=== PATIENT | female | born 1990 | race African-American/Black ===

== ENCOUNTER 2016-03-14 17:24 | Inpatient (IN) | payer SELFPAY ==
[~2016-03-14] VITALS: Ht 162.6 cm; Wt 68.0 kg
[~2016-03-14 17:24] MED LIST: CHLO.12%30 SSP; PENI500T PO
[2016-03-14 17:25] VITALS: BP 128/64; PULSE 122; RESP 20; TEMP 98.8; O2SAT 98
[2016-03-14] MEDS ORDERED: SODIUM CHLOR 0.9% 1000 ML INJ 1,000 ML IV SCH (17:56)
[2016-03-14] MEDS ORDERED: DICYCLOMINE HCL 10 MG CAP PO ONE (18:00)
[2016-03-14] MEDS ORDERED: ALUMINUM/MAGNESIUM/SIMETH 30 ML CUP PO ONE (18:00)
[2016-03-14] MEDS ORDERED: SODIUM CHLORIDE 0.9% FLUSH 5 ML FLUSH IVF PRN (18:00)
[2016-03-14] MEDS ORDERED: ONDANSETRON HCL 4 MG/2 ML VIAL IVP ONE (18:00)
[2016-03-14] MEDS ORDERED: FAMOTIDINE 20 MG/2 ML VIAL IV PUSH ONE (18:00)
[2016-03-14] MEDS ORDERED: LIDOCAINE VISCOUS 2% SOLN 15 ML UDC PO ONE (18:00)
[2016-03-14 18:38] LABS: AUTOMATED NEUTROPHIL # 16.1 TH/MM3 (1.8-7.7); BASOPHIL % 0.2 % (0.0-2.0); EOSINOPHIL % 0.1 % (0.0-4.0); HEMATOCRIT 41.3 % (35.0-46.0); HEMO FLAGS DIFF FINAL; LYMPH % 6.6 % (9.0-44.0); LYMPHOCYTE # 1.2 TH/MM3 (1.0-4.8); MEAN CELL VOLUME 81.2 FL (80.0-100.0); MEAN CORPUSCULAR HEMOGLOBIN 26.4 PG (27.0-34.0); MEAN CORPUSCULAR HGB CONC 32.5 % (32.0-36.0); MONO % 3.5 % (0.0-8.0); NEUT % 89.6 % (16.0-70.0); PLATELET COUNT 267 TH/MM3 (150-450); RED BLOOD COUNT 5.08 MIL/MM3 (4.00-5.30); RED CELL DISTRIBUTION WIDTH 14.2 % (11.6-17.2)
[2016-03-14 18:45] LABS: BACTERIA, URINE RARE /hpf; BLOOD, URINE NEG (NEG); COMMENT (UR) CULTURE INDICATED; CULTURE IF INDICATED CULTURE INDICATED; GLUCOSE,URINE NEG (NEG); KETONE, URINE 150 mg/dL (NEG); MUCUS URINE MOD /lpf (OCC); NITRITE,URINE NEG (NEG); PH, URINE 5.5 (5.0-8.5); SQUAMOUS EPITHELIAL CELL URINE 18 /hpf (0-5); URINE COLOR YELLOW (YELLW/STRAW)
--- NOTE | 2016-03-14 18:46 | RADRPT ---
EXAM DATE/TIME: 03/14/2016 18:36 [facility] COMPARISON: No previous studies available for comparison. INDICATIONS : Cough MEDICAL HISTORY : None. SURGICAL HISTORY : None. ENCOUNTER: Initial ACUITY: 1 day PAIN SCORE: 10/10 LOCATION: Bilateral chest FINDINGS: A single view of the chest demonstrates the lungs to be symmetrically aerated without evidence of mas s, infiltrate or effusion. The cardiomediastinal contours are unremarkable. Osseous structures are intact. CONCLUSION: Normal examination. Lb Stoll Jr., MD on March 14, 2016 at 18:45 Board Certified Radiologist. This report was verified electronically.
[2016-03-14 18:55] LABS: APTT (PATIENT) 28.5 SEC (24.3-30.1); INTERNATIONAL NORMALIZED RATIO 1.1 RATIO
[2016-03-14 19:00] LABS: ANION GAP 12 MEQ/L (5-15); AST (GOT) 11 U/L (15-37); BICARBONATE 22.5 MEQ/L (21.0-32.0); BLOOD UREA NITROGEN 11 MG/DL (7-18); CHLORIDE 101 MEQ/L (98-107); GLOMERULAR FILTRATION RATE 82 ML/MIN (>89); POTASSIUM 3.5 MEQ/L (3.5-5.1); SODIUM (NA) 135 MEQ/L (136-145)
[2016-03-14 19:04] LABS: ALKALINE PHOSPHATASE 67 U/L (45-117); ALT (GPT) 15 U/L (10-53); TOTAL BILIRUBIN ADULT 0.6 MG/DL (0.2-1.0)
--- NOTE | 2016-03-14 19:10 | PD ---
HPI Chief Complaint: Flank/Kidney Pain Time Seen by Provider: 17:44 Travel History International Travel<30 days: No Contact w/Intl Traveler<30days: No Traveled to known affect area: No History of Present Illness HPI Patient is a 25-year-old female who presents to emergency with complaints of bilateral flank pain for the past 2 days. Reports that she came home from work one day and felt sick. Reports that for the past 2 days, she has been nauseous and has been vomiting. Patient reports that she has not been able to keep anything down. Reports that she has been feeling dehydrated. Reports that she has been having fevers and chills. Denies constipation or diarrhea. Patient denies any sick contacts. No recent travels. PFSH Past Medical History Medical History: Denies Significant Hx Diminished Hearing: No Influenza Vaccination: No ?: Not LMP: 02/13/16 : 1 Para: 0 Miscarriage: 0 : 0 Past Surgical History Surgical History: No Previous Surgery Social History Alcohol Use: No Tobacco Use: No (quit) Substance Use: No Allergies-Medications (Allergen,Severity, Reaction): Coded Allergies: Pineapple (Verified Allergy, Severe, 03/14/16) Reported Meds & Prescriptions Reported Meds & Active Scripts Active No Active Prescriptions or Reported Medications Review of Systems General / Constitutional: Positive: Fever, Chills Eyes: No: Visual changes HENT: No: Headaches Cardiovascular: No: Chest Pain or Discomfort Respiratory: No: Shortness of Breath Gastrointestinal: Positive: Nausea, Vomiting, Abdominal Pain Genitourinary: No: Dysuria Musculoskeletal: No: Pain Skin: No Rash Neurologic: No: Weakness Psychiatric: No: Depression Endocrine: No: Polydipsia Hematologic/Lymphatic: No: Easy Bruising Physical Exam Narrative GENERAL: Patient with mild distress SKIN: Warm and dry. HEAD: Atraumatic. Normocephalic. EYES: Pupils equal and round. No scleral icterus. No injection or drainage. ENT: No nasal bleeding or discharge. Mucous membranes pink and moist. NECK: Trachea midline. No JVD. CARDIOVASCULAR: Patient tachycardic. No murmur appreciated. RESPIRATORY: No accessory muscle use. Clear to auscultation. Breath sounds equal bilaterally. GASTROINTESTINAL: Abdomen soft, non-tender, nondistended. Hepatic and splenic margins not palpable. MUSCULOSKELETAL: No obvious deformities. No clubbing. No cyanosis. No edema. Patient with bilateral flank pain NEUROLOGICAL: Awake and alert. No obvious cranial nerve deficits. Motor grossly within normal limits. Normal speech. PSYCHIATRIC: Appropriate mood and affect; insight and judgment normal. Data Data Last Documented VS Vital Signs Date Time Temp Pulse Resp B/P Pulse Ox O2 Delivery O2 Flow Rate FiO2 03/14/16 19:15 116 18 89/53 96 03/14/16 17:25 98.8 Orders Complete Blood Count With Diff (03/14/16 17:56) Comprehensive Metabolic Panel (03/14/16 17:56) Lipase (03/14/16 17:56) Prothrombin Time / Inr (Pt) (03/14/16 17:56) Act Partial Throm Time (Ptt) (03/14/16 17:56) Urinalysis - C+S If Indicated (03/14/16 17:56) Ct Abd/Pel W/O Iv Contrast (03/14/16 17:56) Iv Access Insert/Monitor (03/14/16 17:56) Ecg Monitoring (03/14/16 17:56) Ondansetron Inj (Zofran Inj) (03/14/16 18:00) Sodium Chlor 0.9% 1000 Ml Inj (Ns 1000 M (03/14/16 17:56) Sodium Chloride 0.9% Flush (Ns Flush) (03/14/16 18:00) Chest, Single Ap (03/14/16 17:56) Famotidine Inj (Pepcid Inj) (03/14/16 18:00) Dicyclomine (Bentyl) (03/14/16 18:00) Al-Mag Hy-Si 40-40-4 Mg/Ml Liq (Mag-Al P (03/14/16 18:00) Lidocaine 2% Viscous (Xylocaine 2% Visco (03/14/16 18:00) Ed Urine Pregnancytest Poc (03/14/16 17:56) Influenzae A/B Antigen (03/14/16 17:56) Urine Culture (03/14/16 18:10) Sodium Chlor 0.9% 1000 Ml Inj (Ns 1000 M (03/14/16 19:30) Ceftriaxone Inj (Rocephin Inj) (03/14/16 19:30) Labs Laboratory Tests Test 03/14/16 18:10 White Blood Count 18.0 TH/MM3 Red Blood Count 5.08 MIL/MM3 Hemoglobin 13.4 GM/DL Hematocrit 41.3 % Mean Corpuscular Volume 81.2 FL Mean Corpuscular Hemoglobin 26.4 PG Mean Corpuscular Hemoglobin 32.5 % Concent Red Cell Distribution Width 14.2 % Platelet Count 267 TH/MM3 Mean Platelet Volume 9.2 FL Neutrophils (%) (Auto) 89.6 % Lymphocytes (%) (Auto) 6.6 % Monocytes (%) (Auto) 3.5 % Eosinophils (%) (Auto) 0.1 % Basophils (%) (Auto) 0.2 % Neutrophils # (Auto) 16.1 TH/MM3 Lymphocytes # (Auto) 1.2 TH/MM3 Monocytes # (Auto) 0.6 TH/MM3 Eosinophils # (Auto) 0.0 TH/MM3 Basophils # (Auto) 0.0 TH/MM3 CBC Comment DIFF FINAL Differential Comment Prothrombin Time 12.0 SEC Prothromb Time International 1.1 RATIO Ratio Activated Partial 28.5 SEC Thromboplast Time Urine Color YELLOW Urine Turbidity HAZY Urine pH 5.5 Urine Specific [place] 1.033 Urine Protein 30 mg/dL Urine Glucose (UA) NEG mg/dL Urine Ketones 150 mg/dL Urine Occult Blood NEG Urine Nitrite NEG Urine Bilirubin NEG Urine Urobilinogen 2.0 MG/DL Urine Leukocyte Esterase LARGE Urine RBC 6 /hpf Urine WBC 19 /hpf Urine Squamous Epithelial 18 /hpf Cells Urine Bacteria RARE /hpf Urine Mucus MOD /lpf Microscopic Urinalysis Comment CULTURE INDICATED Sodium Level 135 MEQ/L Potassium Level 3.5 MEQ/L Chloride Level 101 MEQ/L Carbon Dioxide Level 22.5 MEQ/L Anion Gap 12 MEQ/L Blood Urea Nitrogen 11 MG/DL Creatinine 1.00 MG/DL Estimat Glomerular Filtration 82 ML/MIN Rate Random Glucose 99 MG/DL Calcium Level 9.1 MG/DL Total Bilirubin 0.6 MG/DL Aspartate Amino Transf 11 U/L (AST/SGOT) Alanine Aminotransferase 15 U/L (ALT/SGPT) Alkaline Phosphatase 67 U/L Total Protein 9.1 GM/DL Albumin 4.0 GM/DL Lipase 68 U/L MDM Medical Decision Making Medical Screen Exam Complete: Yes Emergency Medical Condition: Yes Interpretation(s) Vital Signs Date Time Temp Pulse Resp B/P Pulse Ox O2 Delivery O2 Flow Rate FiO2 03/14/16 19:15 116 18 89/53 96 12/31/16 17:25 98.8 122 20 128/64 98 Laboratory Tests Test 03/14/16 18:10 White Blood Count 18.0 TH/MM3 (4.0-11.0) Red Blood Count 5.08 MIL/MM3 (4.00-5.30) Hemoglobin 13.4 GM/DL (11.6-15.3) Hematocrit 41.3 % (35.0-46.0) Mean Corpuscular Volume 81.2 FL (80.0-100.0) Mean Corpuscular Hemoglobin 26.4 PG (27.0-34.0) Mean Corpuscular Hemoglobin 32.5 % Concent (32.0-36.0) Red Cell Distribution Width 14.2 % (11.6-17.2) Platelet Count 267 TH/MM3 (150-450) Mean Platelet Volume 9.2 FL (7.0-11.0) Neutrophils (%) (Auto) 89.6 % (16.0-70.0) Lymphocytes (%) (Auto) 6.6 % (9.0-44.0) Monocytes (%) (Auto) 3.5 % (0.0-8.0) Eosinophils (%) (Auto) 0.1 % (0.0-4.0) Basophils (%) (Auto) 0.2 % (0.0-2.0) Neutrophils # (Auto) 16.1 TH/MM3 (1.8-7.7) Lymphocytes # (Auto) 1.2 TH/MM3 (1.0-4.8) Monocytes # (Auto) 0.6 TH/MM3 (0-0.9) Eosinophils # (Auto) 0.0 TH/MM3 (0-0.4) Basophils # (Auto) 0.0 TH/MM3 (0-0.2) CBC Comment DIFF FINAL Differential Comment Prothrombin Time 12.0 SEC (9.8-11.6) Prothromb Time International 1.1 RATIO Ratio Activated Partial 28.5 SEC Thromboplast Time (24.3-30.1) Urine Color YELLOW (YELLW/STRAW) Urine Turbidity HAZY (CLEAR) Urine pH 5.5 (5.0-8.5) Urine Specific [place] 1.033 (1.002-1.035) Urine Protein 30 mg/dL (NEG-TRACE) Urine Glucose (UA) NEG mg/dL (NEG) Urine Ketones 150 mg/dL (NEG) Urine Occult Blood NEG (NEG) Urine Nitrite NEG (NEG) Urine Bilirubin NEG (NEG) Urine Urobilinogen 2.0 MG/DL (LESS THAN 2.0) Urine Leukocyte Esterase LARGE (NEG) Urine RBC 6 /hpf (0-3) Urine WBC 19 /hpf (0-5) Urine Squamous Epithelial 18 /hpf (0-5) Cells Urine Bacteria RARE /hpf (NONE) Urine Mucus MOD /lpf (OCC) Microscopic Urinalysis Comment CULTURE INDICATED Sodium Level 135 MEQ/L (136-145) Potassium Level 3.5 MEQ/L (3.5-5.1) Chloride Level 101 MEQ/L (98-107) Carbon Dioxide Level 22.5 MEQ/L (21.0-32.0) Anion Gap 12 MEQ/L (5-15) Blood Urea Nitrogen 11 MG/DL (7-18) Creatinine 1.00 MG/DL (0.50-1.00) Estimat Glomerular Filtration 82 ML/MIN (>89) Rate Random Glucose 99 MG/DL (74-106) Calcium Level 9.1 MG/DL (8.5-10.1) Total Bilirubin 0.6 MG/DL (0.2-1.0) Aspartate Amino Transf 11 U/L (15-37) (AST/SGOT) Alanine Aminotransferase 15 U/L (10-53) (ALT/SGPT) Alkaline Phosphatase 67 U/L (45-117) Total Protein 9.1 GM/DL (6.4-8.2) Albumin 4.0 GM/DL (3.4-5.0) Lipase 68 U/L (73-393) Last Impressions Chest X-Ray 03/14/161755 Signed Impressions: Service Date/Time: Monday, March 14, 2016 18:36 - CONCLUSION: Normal examination. Lb Stoll Jr., MD Abdomen/Pelvis CT 03/14/161755 Signed Impressions: Service Date/Time: Monday, March 14, 2016 19:00 - CONCLUSION: No renal or definite ureteral calculus on either side. No evidence of obstructive uropathy. Harris Spann MD Differential Diagnosis Pyelonephritis, nephrolithiasis, UTI, cholecystitis, appendicitis, gastroenteritis Narrative Course Patient is a 25-year-old female who presents to emergency room with complaints of 2 days of b/l flank pain with intractable nausea and vomiting with fevers and chills. IV line was established, CBC, BMP, UA, CT ordered for further evaluation of symptoms. CBC CBC 18,000 shift Hemoglobin 13.4 Hematocrit 41.3 Platelets 267 BMP Sodium 135 Chloride 101 Potassium 3.5 BUN 11 Creatinine 1.0 UA Large leuk esterase, 19 wbc, rare bacteria, pos ketones Patient with sepsis: Patient tachycardic with wbc 18,000 pt now hypotensive with bp 89/53 Patient will require admission case reviewed with dr more with fp accepts pt to service Sepsis Criteria SIRS Criteria (2 or more): Heart rate over 90, WBC > 71474, < 4000 or > 10% bands Sepsis Criteria (SIRS+source): Infect source susp/known Multiple Organ Dysfunction Syn: Evidence -2 organs failing Criteria Outcome: Meets SIRS criteria, Meets sepsis criteria, Meets severe sepsis criteria Diagnosis Primary Impression: Sepsis Qualified Code: A41.9 - Sepsis, due to unspecified organism Additional Impression: Pyelonephritis Admitting Information Admitting Physician Requests: Admit Scripts No Active Prescriptions or Reported Meds Janneth Miranda DO Mar 14, 2016 19:10
[2016-03-14 19:15] VITALS: BP 89/53; PULSE 116; RESP 18; O2SAT 96
--- NOTE | 2016-03-14 19:18 | RADRPT ---
EXAM DATE/TIME: 03/14/2016 19:00 [facility] COMPARISON: CT ABDOMEN & PELVIS W CONTRAST, April 29, 2015, 13:02. INDICATIONS : Evaluate for calculi. ORAL CONTRAST: No oral contrast ingested. RADIATION DOSE: 5.22 CTDIvol (mGy) MEDICAL HISTORY : None SURGICAL HISTORY : None. ENCOUNTER: Initial ACUITY: 1 day PAIN SCALE: 5/10 LOCATION: Bilateral flank TECHNIQUE: Volumetric scanning of the abdomen and pelvis was performed. Using automated exposure control and ad justment of the mA and/or kV according to patient size, radiation dose was kept as low as reasonably achievable to obtain optimal diagnostic quality images. FINDINGS: LOWER LUNGS: The visualized lower lungs are clear. LIVER: Homogeneous density without lesion. There is no dilation of the biliary tree. No calcified gallston es. SPLEEN: Normal size without lesion. PANCREAS: Within normal limits. KIDNEYS: Normal in size and shape. There is no mass, stone, or hydronephrosis. Multiple tiny round calculi se en in both sides of the pelvic cavity that are most typical of phleboliths. ADRENAL GLANDS: Within normal limits. VASCULAR: There is no aortic aneurysm. BOWEL/MESENTERY: The stomach, small bowel, and colon demonstrate no acute abnormality. There is no free intraperitone al air or fluid. ABDOMINAL WALL: Within normal limits. RETROPERITONEUM: There is no lymphadenopathy. BLADDER: No wall thickening or mass. REPRODUCTIVE: Within normal limits. INGUINAL: There is no lymphadenopathy or hernia. MUSCULOSKELETAL: No acute bony abnormality demonstrated. Acetabular sided degenerative appearing subchondral cystic ch abbi seen of the right hip. CONCLUSION: No renal or definite ureteral calculus on either side. No evidence of obstructive uropathy. Harris Spann MD on March 14, 2016 at 19:11 Board Certified Radiologist. This report was verified electronically.
[2016-03-14] MEDS ORDERED: cefTRIAXone INJ 1,000 MG in SODIUM CHLORIDE 0.9% INJ 100 ML IV ONE (19:30)
[2016-03-14] MEDS ORDERED: SODIUM CHLOR 0.9% 1000 ML INJ 1,000 ML IV ONE (19:30)
[2016-03-14 19:48] VITALS: BP 96/51; PULSE 107; RESP 18; O2SAT 96
[2016-03-14 20:10] VITALS: BP 98/54; PULSE 120; RESP 18; O2SAT 95
[2016-03-14] MEDS: KETOROLAC TROMETHAMINE 30 MG/ML (IVP) VIAL IV PUSH PRN (21:58)
--- NOTE | 2016-03-14 22:10 | HHI.HP ---
HPI Service Family Medicine Primary Care Physician No Primary Care Physician Admission Diagnosis Sepsis, pyelonephritis Diagnoses: International Travel<30 Days: No Contact w/Intl Traveler<30days: No Known Affected Area: No History of Present Illness Ms. Suresh is a 25-year-old female with presents with back pain and generalized discomfort. Patient reports that she started feeling malaise yesterday evening, then began vomiting later that night once she arrived at work ([employer]). Since onset of vomiting, patient states that she has been unable to tolerate liquids such as water, Gatorade, or food. Prior to onset of vomiting and malaise, patient reports cough and nasal congestion which has been present for several days. Cough is predominantly dry but is sometimes associated with small quantities of mucus. Patient reports neck and back pain when coughing. Patient reports that she cannot lay on her back without nausea. Patients' back pain is diffuse, more central than flank. Mild abdominal pain. No pain with urination or urinary urgency. Regarding patient's neck pain, she denies pain with flexion of the neck or neck movement in general. Patient also denies headaches. Patient reports that she has bilateral leg/thigh pain. Patient may have had a fever last night; she is unsure. No skin bruising or skin lesions. She denies chest pain or shortness of breath. No reported sick contacts. Patient denies any sexual intercourse for the past 2 months; she reports no new sexual partners. Patient denies history of STDs but reports prior UTI (Lenard Tucker MD R2) Review of Systems Constitutional: COMPLAINS OF: Fever (maybe, patient unsure), DENIES: Weight gain, Weight loss Endocrine: DENIES: Polyuria Eyes: DENIES: Blurred vision, Diplopia Ears, nose, mouth, throat: COMPLAINS OF: Nasal discharge, Running Nose Respiratory: COMPLAINS OF: Cough, Sputum production (slight) Cardiovascular: DENIES: Chest pain, Dyspnea on Exertion Gastrointestinal: COMPLAINS OF: Abdominal pain, DENIES: Constipation, Diarrhea Genitourinary: DENIES: Abnormal vaginal bleeding, Urgency, Dysuria Musculoskeletal: COMPLAINS OF: Joint pain, Back pain, Neck pain Integumentary: DENIES: Abnormal pigmentation, Rash Hematologic/lymphatic: DENIES: Bruising Neurologic: DENIES: Headache (Lenard Tucker MD R2) Past Family Social History Past Medical History UTI 5-6 mo ago "gas in stomach" Patient denies prior STD's ; reports UTI. Per EMR History of gonorrhea 12/2008 OB HX 1 miscarriage. Last period 02/13/2016. No sex for 2 months. No new partners. Past Surgical History None Reported Medications Reported Meds & Active Scripts Active No Active Prescriptions or Reported Medications (Lenard Tucker MD R2) Allergies: Coded Allergies: Pineapple (Verified Allergy, Severe, 03/14/16) Family History Grandmother- cataracts, eye stent, HTN Aunt- AIDS No other significant FH reported Social History Patient lives with friend; works at [employer] Alcohol: None Smoking: No cigarettes Illicit drugs: Lortab recently. Patient smokes marijuana (Lenard Tucker MD R2) Physical Exam Vital Signs Vital Signs Date Time Temp Pulse Resp B/P Pulse Ox O2 Delivery O2 Flow Rate FiO2 03/14/16 20:10 120 18 98/54 95 03/14/16 19:48 107 18 96/51 96 03/14/16 19:15 116 18 89/53 96 03/14/16 17:25 98.8 122 20 128/64 98 Physical Exam GENERAL: Patient crying; appears distressed/anxious SKIN: Warm and dry, no rashes appreciated EYES: No scleral icterus, injection, or drainage. EOMI. HENT: Mouth: Poor dentition Pharynx: Large tonsils; without erythema or exudate. NECK: No pain elicited by flexion of neck or rotation of neck; no neck stiffness. No appreciated lymphadenopathy or thyromegaly appreciated CARDIOVASCULAR: Tachycardic; regular rhythm without murmurs. Normal peripheral perfusion in lower extremities. RESPIRATORY: Normal respiratory rate. Lungs clear to auscultation bilaterally. GASTROINTESTINAL: Abdomen soft, nondistended, some nonspecific tenderness present. Peritoneal signs. Bowel sounds normal. Back: No tenderness on palpation of spinous processes; some generalized pain when patient coughed MUSCULOSKELETAL: No lower extremity swelling. No appreciated calf asymmetry. NEURO/PSYCH: Awake, alert, and oriented. Cranial nerves grossly normal. Grossly normal motor and sensory function. Patient crying; appeared apprehensive of pain Laboratory Laboratory Tests Test 03/14/16 03/14/16 18:10 19:48 White Blood Count 18.0 Red Blood Count 5.08 Hemoglobin 13.4 Hematocrit 41.3 Mean Corpuscular Volume 81.2 Mean Corpuscular Hemoglobin 26.4 Mean Corpuscular Hemoglobin 32.5 Concent Red Cell Distribution Width 14.2 Platelet Count 267 Mean Platelet Volume 9.2 Neutrophils (%) (Auto) 89.6 Lymphocytes (%) (Auto) 6.6 Monocytes (%) (Auto) 3.5 Eosinophils (%) (Auto) 0.1 Basophils (%) (Auto) 0.2 Neutrophils # (Auto) 16.1 Lymphocytes # (Auto) 1.2 Monocytes # (Auto) 0.6 Eosinophils # (Auto) 0.0 Basophils # (Auto) 0.0 CBC Comment DIFF FINAL Differential Comment Prothrombin Time 12.0 Prothromb Time International 1.1 Ratio Activated Partial 28.5 Thromboplast Time Urine Color YELLOW Urine Turbidity HAZY Urine pH 5.5 Urine Specific [place] 1.033 Urine Protein 30 Urine Glucose (UA) NEG Urine Ketones 150 Urine Occult Blood NEG Urine Nitrite NEG Urine Bilirubin NEG Urine Urobilinogen 2.0 Urine Leukocyte Esterase LARGE Urine RBC 6 Urine WBC 19 Urine Squamous Epithelial 18 Cells Urine Bacteria RARE Urine Mucus MOD Microscopic Urinalysis Comment CULTURE INDICATED Sodium Level 135 Potassium Level 3.5 Chloride Level 101 Carbon Dioxide Level 22.5 Anion Gap 12 Blood Urea Nitrogen 11 Creatinine 1.00 Estimat Glomerular Filtration 82 Rate Random Glucose 99 Calcium Level 9.1 Total Bilirubin 0.6 Aspartate Amino Transf 11 (AST/SGOT) Alanine Aminotransferase 15 (ALT/SGPT) Alkaline Phosphatase 67 Total Protein 9.1 Albumin 4.0 Lipase 68 Lactic Acid Level 1.9 Date/Time Procedure Status Source Growth 03/14/16 19:40 Aerobic Blood Culture Received Blood Peripheral Pending 03/14/16 19:40 Anaerobic Blood Culture Received Blood Peripheral Pending 03/14/16 18:10 Urine Culture Received Urine Clean Catch Pending 03/14/16 18:10 Influenza Types A,B Antigen (JANEL) - Final Complete Nasal Aspirate NEGATIVE FOR FLU A AND B ANTIGEN.... (Lenard Tucker MD R2) Result Diagram: 03/14/16180903/14/161809 Imaging Last Impressions Chest X-Ray 03/14/161755 Signed Impressions: Service Date/Time: Monday, March 14, 2016 18:36 - CONCLUSION: Normal examination. Lb Stoll Jr., MD Abdomen/Pelvis CT 03/14/161755 Signed Impressions: Service Date/Time: Monday, March 14, 2016 19:00 - CONCLUSION: No renal or definite ureteral calculus on either side. No evidence of obstructive uropathy. Harris Spann MD (Lenard Tucker MD R2) Assessment and Plan Assessment and Plan Ms. Suresh is a 25 yo F with: Code Status Full Code (Lenard Tucker MD R2) Attending Attestation The patient has been seen and examined. The chart and all resident notes have been reviewed. I agree that inpatient care is appropriate and that a two midnight stay is expected for the reasons documented in the resident history and physical. I have discussed this with the resident and certify the resident s order for inpatient admission. (Jen Murphy MD) Problem List: (1) Sepsis Status: Acute Plan: Continue IV Rocephin 1 g daily -Continue IV fluid supplementation; can give additional bolus if needed We'll follow blood and urine cultures We'll check urine chlamydia and gonorrhea due to history of gonorrhea Impression: Unclear etiology. Patient meets sepsis criteria with WBC 18, HR > 100. Patient complaining of back pain; UA on admission with large leuk esterase , 19 WBC, rare bacteria. History of gonorrhea in 2008. Urine test negative Abdominal CT on admissionno renal or definite ureteral calculus; no evidence of obstructive uropathy\\ Lactic acid 1.9 (2) Back pain Status: Acute Plan: -Pain Control -Tylenol PA 1-5 -Ketorlac 30mg IV q6hrs -BRK P of Morphine 2mg IV Impression: Unclear etiology. Possibly associated with fever; no specific site of tenderness on exam. Suspect possible viral illness causing malaise and back pain. Urinary tract infection is also possible. Spinal pathology/infectious pathology less likely due to lack of known IV drug use (3) Vomiting Status: Acute Plan: Continue when necessary Zofran We'll attempt clear liquid diet and advance as tolerated Impression: Patient reports vomiting and decreased oral intake for past 2 days. Unclear etiology (4) DVT PPX Status: Acute Plan: -Bilateral SCD's (5) Fluids, Electrolytes, and Nutrition Status: Acute Plan: Fluids: Continue NS at 110ml/hr -s/p 3L IV NS Electrolytes: Monitor and replete as needed Nutrition: Clear liquid diet; will advance as tolerated (Lenard Tucker MD R2) Physician Certification 2 Midnight Certification Type: Admission for Inpatient Services Order for Inpatient Services The services are ordered in accordance with Medicare regulations or non- Medicare payer requirements, as applicable. In the case of services not specified as inpatient-only, they are appropriately provided as inpatient services in accordance with the 2-midnight benchmark. Estimated LOS (days): 3 days is the estimated time the patient will need to remain in the hospital, assuming treatment plan goals are met and no additional complications. Post-Hospital Plan: Home (Lenard Tucker MD R2) Problem Qualifiers (1) Sepsis: Qualified Code: A41.9 - Sepsis, due to unspecified organism (2) Back pain: Qualified Code: M54.5 - Acute bilateral low back pain without sciatica Lenard Tucker MD R2 Mar 14, 2016 22:09 Jen Murphy MD Mar 17, 2016 16:58
[2016-03-14] MEDS ORDERED: NALOXONE HCL 0.4 MG/ML AMP IV PRN ×2 (23:00)
[2016-03-14] MEDS ORDERED: SODIUM CHLORIDE 0.9% FLUSH 5 ML FLUSH FLUSH PRN ×2 (23:00)
[2016-03-14] MEDS: SODIUM CHLOR 0.9% 1000 ML INJ 1,000 ML IV SCH (23:21)
[2016-03-14] MEDS: MORPHINE SULFATE 4 MG/ML INJ IV PUSH PRN (23:21)
[2016-03-15] VITALS (8 sets, daily range): BP systolic 97–111; BP diastolic 50–70; PULSE 77–111; RESP 16–20; TEMP 96–100; O2SAT 96–100
[2016-03-15] MEDS: ONDANSETRON HCL 4 MG/2 ML VIAL IV PUSH PRN (01:07)
[2016-03-15 05:09] LABS: AUTOMATED NEUTROPHIL # 7.6 TH/MM3 (1.8-7.7); BASOPHIL % 0.3 % (0.0-2.0); EOSINOPHIL % 0.3 % (0.0-4.0); HEMATOCRIT 33.1 % (35.0-46.0); HEMO FLAGS DIFF FINAL; MEAN CELL VOLUME 80.7 FL (80.0-100.0); MEAN CORPUSCULAR HEMOGLOBIN 26.7 PG (27.0-34.0); MEAN CORPUSCULAR HGB CONC 33.1 % (32.0-36.0); NEUT % 82.4 % (16.0-70.0); PLATELET COUNT 195 TH/MM3 (150-450); RED CELL DISTRIBUTION WIDTH 14.1 % (11.6-17.2); WHITE BLOOD COUNT 9.2 TH/MM3 (4.0-11.0)
[2016-03-15 05:35] LABS: BICARBONATE 20.7 MEQ/L (21.0-32.0); POTASSIUM 3.3 MEQ/L (3.5-5.1)
[2016-03-15] MEDS ORDERED: POTASSIUM CHLORIDE 20 MEQ CONTROLLED RELEASE TAB PO ONE (07:00)
[2016-03-15] MEDS: SODIUM CHLORIDE 0.9% FLUSH 5 ML FLUSH FLUSH SCH ×2 (07:45→21:00)
[2016-03-15] MEDS: SODIUM CHLOR 0.9% 1000 ML INJ 1,000 ML IV SCH ×2 (08:16→18:02)
[2016-03-15] MEDS ORDERED: SODIUM CHLORIDE 0.9% FLUSH 5 ML FLUSH FLUSH SCH (09:00)
[2016-03-15] MEDS: MORPHINE SULFATE 4 MG/ML INJ IV PUSH PRN ×2 (10:13→19:27)
[2016-03-15 15:57] LABS: CHLAMYDIA PCR NOT DETECTED (NOT DETECT); NEISSERIA PCR NOT DETECTED (NOT DETECT)
--- NOTE | 2016-03-15 16:10 | HHI.FPPN ---
Subjective Subjective patient seen and examined with the resident team. Case reviewed and discussed Please refer to resident H&P for further details regarding HPI, ROS, PMH, SurgHx , Fh and SocHx In summary, patient is a 25yoF presenting with several days of worsening cough, body and muscle aches, fever, and feeling weak. When she presented to the ED and was found to be septic with pyelonephritis. She was seen this am in her hospital bed, stating she felt the same as on admission. This morning she is complaining of a sore throat [facility] Objective Objective Last Impressions Chest X-Ray 03/14/161755 Signed Impressions: Service Date/Time: Monday, March 14, 2016 18:36 - CONCLUSION: Normal examination. Lb Stoll Jr., MD Abdomen/Pelvis CT 03/14/161755 Signed Impressions: Service Date/Time: Monday, March 14, 2016 19:00 - CONCLUSION: No renal or definite ureteral calculus on either side. No evidence of obstructive uropathy. Harris Spann MD Laboratory Tests - Abnormals Test 03/14/16 03/15/16 18:10 04:12 White Blood Count 18.0 TH/MM3 Mean Corpuscular Hemoglobin 26.4 PG 26.7 PG Neutrophils (%) (Auto) 89.6 % 82.4 % Lymphocytes (%) (Auto) 6.6 % Neutrophils # (Auto) 16.1 TH/MM3 Prothrombin Time 12.0 SEC Urine Turbidity HAZY Urine Protein 30 mg/dL Urine Ketones 150 mg/dL Urine Leukocyte Esterase LARGE Urine RBC 6 /hpf Urine WBC 19 /hpf Urine Bacteria RARE /hpf Urine Mucus MOD /lpf Sodium Level 135 MEQ/L Estimat Glomerular Filtration 82 ML/MIN Rate Aspartate Amino Transf 11 U/L (AST/SGOT) Total Protein 9.1 GM/DL Lipase 68 U/L Hemoglobin 11.0 GM/DL Hematocrit 33.1 % Potassium Level 3.3 MEQ/L Chloride Level 108 MEQ/L Carbon Dioxide Level 20.7 MEQ/L Calcium Level 7.9 MG/DL Vital Signs 03/14/16 03/14/16 03/14/16 03/14/16 17:25 19:15 19:48 20:10 Temp 98.8 Pulse 122 116 107 120 Resp 20 18 18 18 B/P 128/64 89/53 96/51 98/54 Pulse Ox 98 96 96 95 03/15/16 03/15/16 03/15/16 03/15/16 00:20 00:35 00:57 00:57 Temp 96.0 Pulse 104 111 Resp 16 18 18 18 B/P 106/62 109/56 Pulse Ox 98 97 O2 Delivery Room Air 03/15/16 03/15/16 03/15/16 03/15/16 04:35 07:37 11:17 15:16 Temp 100.0 99.7 98.4 98.4 Pulse 95 99 90 92 Resp 18 18 16 18 B/P 101/50 97/55 111/70 101/62 Pulse Ox 100 100 99 100 Physical exam GENERAL: Thin AAF resting in bed, NAD SKIN: Warm and dry. NO rashes HEAD: Normocephalic. AT EYES: No scleral icterus. No injection or drainage. NECK: Supple, trachea midline. Full ROM, no nuchal rigidity. No JVD, +cervical lymphadenopathy. CARDIOVASCULAR: Regular rate and rhythm without murmurs, gallops, or rubs. RESPIRATORY: Breath sounds equal and clear to auscultation bilaterally. No accessory muscle use. GASTROINTESTINAL: Abdomen soft, non-tender, nondistended. No rebound. Normal active BS MUSCULOSKELETAL: No cyanosis, or edema. No calf tenderness BACK: There is muscle tenderness to palpation, worst over trapezius and paraspinal muscles. No CVA tenderness. NEURO: Awake and alert. Normal speech. CN grossly intact. Assessment Assessment 25yoF with: Sepsis Pyelonephritis Emesis Leukocytosis Hypotension Anemia tachycardia Dehydration Hypokalemia PLAN PLAN IVF Empiric antibiotic therapy Check monoscreen, strep antigen Follow urine culture, blood culture Anti-emetics replete electrolytes as needed Patient seen and examined. Case reviewed and discussed Agree with plan of care as discussed with me and documented in the resident note. Jen Murphy MD Mar 15, 2016 16:10
[2016-03-15] MEDS: cefTRIAXone INJ 1,000 MG in SODIUM CHLORIDE 0.9% INJ 100 ML IV SCH (18:02)
[2016-03-16] VITALS (8 sets, daily range): BP systolic 100–121; BP diastolic 54–76; PULSE 55–85; RESP 16–20; TEMP 97.4–98.6; O2SAT 95–100
[2016-03-16] MEDS: MORPHINE SULFATE 4 MG/ML INJ IV PUSH PRN ×3 (00:48→16:02)
[2016-03-16] MEDS: ONDANSETRON HCL 4 MG/2 ML VIAL IV PUSH PRN ×2 (01:07→10:21)
[2016-03-16] MEDS: KETOROLAC TROMETHAMINE 30 MG/ML (IVP) VIAL IV PUSH PRN ×3 (01:10→21:25)
--- NOTE | 2016-03-16 01:55 | HHI.PR ---
Addendum to Inpatient Note Addendum Reason: Additional Documentation Additional Information CHANGE IN STATUS NOTE Subjective: Residents were paged at 0123 regarding patient reporting chest pain starting at 0030. Nurse obtained stat EKG and administered morphine and Toradol prior to call. Patient states she walked to the bathroom approximately 30 minutes prior to the onset of the chest pain, but she was resting in bed at onset of pain. The pain is sudden onset, substernal, midchest, nonradiating, 7/10 in severity at time of interview. It is unchanging and constant. She received morphine 2 mg IV and Toradol 30 mg IV at approximately 1AM without improvement of symptoms. She also has nausea, received Zofran and 1AM She says she does not have a history of cardiovascular disease, GERD, and has not had symptoms like this previously. Aside from the symptoms, she endorses shortness of breath and fatigue, not new, not relieved with nasal cannula. She also endorses sore throat and cough since yesterday. She denies fevers, chills but sometimes feels hot. Objective: Vital signs: 100% O2 sat, temperature 97.4, pulse palpated approximately 80, respiratory rate 20, BP recorded at 121/76. Gen.: Patient sitting up in bed watching TV, looks mildly uncomfortable. She is speaking in full sentences and able to move for exam. HEENT: No ocular injection or drainage. No cervical LAD. His membranes are moist , tonsils and oropharynx without erythema or exudates. Chest: No chest wall tenderness, no palpable thrills. CV: Rate is regular, normal rhythm, no murmurs. 2+ pulses in distal extremities. No lower extremity swelling. No JVD. Lungs: Clear to auscultation bilaterally without rale dry, rales, crackles. Abdomen: Hypoactive bowel sounds, no tenderness to palpation. Extremities: No signs of swelling, no calf tenderness, negative Homans sign Assessment: 25-year-old [place] female with sudden onset chest pain and no significant cardiovascular risk factors. She was admitted for pyelonephritis, on Rocephin, with Toradol and morphine for pain control. She had mild hypokalemia this morning of 3.3, s/p repletion with 40 meq of potassium by mouth. Now, vital signs are within normal limits, but EKG showing sinus arrhythmia with RBBB. Differential includes ACS, PE, GERD, esophageal disorder, pneumonia, Sofy- Marsh tear, pancreatitis, cholecystitis, anxiety, musculoskeletal pain, electrolyte abnormality. Low suspicion for ACS, PE, Sofy Marsh tear given vital signs wnl, PE benign. Patient received lipase on admission which was normal, and electrolytes were grossly within normal limits on 03/15/15 aside from hypokalemia. CBC showing hemoglobin 11.0, however, likely delusional effect with IV fluids. EKG was obtained at onset of symptoms showing sinus arrhythmia with rate approximately 84 bpm, RBBB in lead 1, and T-wave inversions in leads 1-3. There are no ST-T changes. No prior EKG on file. PERC score: 0 - low risk for PE, no D-dimer ordered, will monitor clinically for vital sign abnormalities. Plan: Repeat BMP now ACS rule out: Trend troponin and CK-MB every 6 hours. Trend EKG every 6 hours. Low suspicion for ACS given patient's age, will add nitrate when necessary Obtain CXR - awaiting official read, on bedside review no obvious infiltrates or vascular abnormality. Aspirin 81 mg chew Zantac 150 mg by mouth Chloraseptic spray PRN for reported sore throat Continue pain control with morphine and Toradol PRN, also has Tylenol ordered PRN Continue IV fluids Oxygen as needed with go O2 sat greater than 90% Will monitor lab results, chest x-ray, EKGs closely for abnormalities, and intervene as needed SDW Dr. Cox PGY2 Natalia Arboleda MD R1 Mar 16, 2016 01:55 Natalia Arboleda MD R1 Mar 16, 2016 01:55
[2016-03-16] MEDS ORDERED: ASPIRIN 81 MG CHEW TAB CHEW ONE (02:00)
--- NOTE | 2016-03-16 02:06 | RADRPT ---
EXAM DATE/TIME: 03/16/2016 02:02 [facility] COMPARISON: CHEST SINGLE AP, March 14, 2016, 18:36. INDICATIONS : Pt short of breath. MEDICAL HISTORY : None. SURGICAL HISTORY : None. ENCOUNTER: Initial ACUITY: 1 day PAIN SCORE: 8/10 LOCATION: Bilateral chest FINDINGS: A single view of the chest demonstrates the lungs to be symmetrically aerated without evidence of mas s, infiltrate or effusion. The cardiomediastinal contours are unremarkable. Osseous structures are intact. CONCLUSION: Normal examination. Lb Stoll Jr., MD on March 16, 2016 at 2:04 Board Certified Radiologist. This report was verified electronically.
[2016-03-16] MEDS ORDERED: FAMOTIDINE 20 MG TAB PO ONE (02:15)
[2016-03-16] MEDS ORDERED: PHENOL 1.4% SOLN 180 ML BTL OROPHARYNG PRN (02:30)
[2016-03-16] MEDS: SODIUM CHLOR 0.9% 1000 ML INJ 1,000 ML IV SCH ×3 (02:43→18:49)
[2016-03-16 02:50] LABS: ANION GAP 9 MEQ/L (5-15); BICARBONATE 21.4 MEQ/L (21.0-32.0); BLOOD UREA NITROGEN 4 MG/DL (7-18); CHLORIDE 110 MEQ/L (98-107); GLOMERULAR FILTRATION RATE 128 ML/MIN (>89); POTASSIUM 3.6 MEQ/L (3.5-5.1); SODIUM (NA) 140 MEQ/L (136-145)
[2016-03-16 02:54] LABS: CREATINE KINASE 139 U/L (26-192)
[2016-03-16 03:06] LABS: CKMB LESS THAN 0.5 NG/ML (0.5-3.6)
[2016-03-16 07:55] LABS: AUTOMATED NEUTROPHIL # 2.5 TH/MM3 (1.8-7.7); BASOPHIL % 0.5 % (0.0-2.0); EOSINOPHIL # 0.1 TH/MM3 (0-0.4); EOSINOPHIL % 2.1 % (0.0-4.0); HEMATOCRIT 31.4 % (35.0-46.0); HEMO FLAGS DIFF FINAL; LYMPH % 38.8 % (9.0-44.0); MEAN CELL VOLUME 80.5 FL (80.0-100.0); MEAN CORPUSCULAR HEMOGLOBIN 26.5 PG (27.0-34.0); MEAN CORPUSCULAR HGB CONC 32.9 % (32.0-36.0); NEUT % 48.6 % (16.0-70.0); PLATELET COUNT 185 TH/MM3 (150-450); WHITE BLOOD COUNT 5.2 TH/MM3 (4.0-11.0)
[2016-03-16 08:00] LABS: BICARBONATE 21.1 MEQ/L (21.0-32.0); MAGNESIUM 1.9 MG/DL (1.5-2.5); POTASSIUM 3.8 MEQ/L (3.5-5.1)
[2016-03-16 08:04] LABS: CREATINE KINASE 125 U/L (26-192)
[2016-03-16] MEDS: SODIUM CHLORIDE 0.9% FLUSH 5 ML FLUSH FLUSH SCH ×2 (08:05→21:23)
[2016-03-16 08:16] LABS: CKMB LESS THAN 0.5 NG/ML (0.5-3.6)
[2016-03-16] MEDS ORDERED: IOHEXOL 350 MG/ML 10 ML VIAL (for RAD DIAG) IV ONE (15:10)
--- NOTE | 2016-03-16 15:16 | RADRPT ---
EXAM DATE/TIME: 03/16/2016 15:04 [facility] COMPARISON: CT ABDOMEN & PELVIS W/O CONTRAST, March 14, 2016, 19:00. INDICATIONS : Chest pain. Evaluate for septic emboli. IV CONTRAST: 42 cc Omnipaque 350 (iohexol) IV RADIATION DOSE: 5.1 CTDIvol (mGy) MEDICAL HISTORY : None SURGICAL HISTORY : None. ENCOUNTER: Initial ACUITY: 1 day PAIN SCALE: 4/10 LOCATION: Bilateral chest TECHNIQUE: Volumetric scanning of the chest was performed. Using automated exposure control and adjustment of t he mA and/or kV according to patient size, radiation dose was kept as low as reasonably achievable to obtain optimal diagnostic quality images. FINDINGS: LUNGS: There is no consolidation or pneumothorax. No concerning pulmonary nodule is visualized. PLEURA: There is no pleural thickening or pleural effusion. MEDIASTINUM: The heart and great vessels demonstrate no acute abnormality. There is no mediastinal or hilar lymph adenopathy. AXILLAE: Within normal limits. No lymphadenopathy. SKELETAL: Within normal limits for patient age. MISCELLANEOUS: The visualized upper abdominal organs demonstrate no acute abnormality. CONCLUSION: Normal examination. Harris Spann MD on March 16, 2016 at 15:13 Board Certified Radiologist. This report was verified electronically.
--- NOTE | 2016-03-16 15:58 | HHI.FPPN ---
Subjective Remarks Overnight had some chest pain which improved with IV morphine and toradol. Still persistent this AM but not as bad. Described as pressure or squeezing. Very mild SOB. No dysuria or abdominal pain. Objective Vitals Vital Signs Date Time Temp Pulse Resp B/P Pulse Ox O2 Delivery O2 Flow Rate FiO2 03/16/16 11:22 16 03/16/16 10:26 16 03/16/16 08:03 97.8 18 103/67 95 03/16/16 07:33 99 21 03/16/16 04:29 98.0 62 20 100/54 100 03/16/16 02:38 65 16 99 03/16/16 01:17 85 20 121/76 100 03/16/16 00:03 97.4 69 20 107/68 100 03/15/16 20:00 96 03/15/16 19:34 98.3 77 20 104/65 96 Result Diagram: 03/16/16 0732 03/16/16 0732 Imaging Last Impressions Chest X-Ray 03/16/16 0000 Signed Impressions: Service Date/Time: Wednesday, March 16, 2016 02:02 - CONCLUSION: Normal examination. Lb Stoll Jr., MD Abdomen/Pelvis CT 03/14/16 1756 Signed Impressions: Service Date/Time: Monday, March 14, 2016 19:00 - CONCLUSION: No renal or definite ureteral calculus on either side. No evidence of obstructive uropathy. Harris Spann MD Objective Remarks GEN: WDWN adult black female lying in bed appearing tired and in mild-moderate discomfort but NAD RESP: CTAB, no crackles or wheezes CV: NRRR, normal S1/S2, no MRG Abd: Soft, NDNT. MSK: No peripheral cyanosis or edema. Medications and IVs Current Medications Medications (Trade) Dose Ordered Sig/Martinez Route Start Time Stop Time Status Last Admin (Zofran Inj) 4 mg Q8H PRN IV PUSH 03/14/16 21:45 03/16/16 10:21 (Morphine Inj) 2 mg Q3H PRN IV PUSH 03/14/16 21:45 03/16/16 10:21 (Toradol Inj) 30 mg Q6H PRN IV PUSH 03/14/16 21:45 03/18/16 21:00 03/16/16 10:22 Acetaminophen 500 mg 500 mg Q6H PRN PO 03/14/16 21:45 (NS 1000 ml Inj) 1,000 ml @ 110 mls/hr Q9H6M IV 03/14/16 23:00 03/16/16 09:45 (Narcan Inj) 0.4 mg UNSCH PRN IV 03/14/16 23:00 (NS Flush) 2 ml UNSCH PRN FLUSH 03/14/16 23:00 IV Flush 2 ml 2 ml BID FLUSH 03/15/16 09:00 (Rocephin Inj/NS Inj) 100 ml @ 200 mls/hr Q24H IV 03/15/16 19:00 03/15/16 18:02 (Chloraseptic [place]) 2 spray Q2H PRN OROPHARYNG 03/16/16 02:30 A/P Assessment and Plan Ms. Suresh is a 25 yo F with: Discharge Planning Unclear at this time Problem List: (1) Sepsis Status: Acute Plan: Unclear etiology. Patient meets sepsis criteria with WBC 18, HR >100. Patient complaining of back pain; UA on admission with large leuk esterase, 19 WBC, rare bacteria. History of gonorrhea in 2008. Urine test negative Abdominal CT on admissionno renal or definite ureteral calculus; no evidence of obstructive uropathy\ Lactic acid 1.9 UCx showing 50-100K mixed GPC, likely contaminant Blood culture growing gram negative rods GC & Chlamydia negative CT chest negative for septic emboli or other concerning pathology Continue IV Rocephin 1 g daily --Consult ID for recommendations re: source, continued Abx --Echocardiogram to r/o endocarditis or vegetations --Continue IV fluid supplementation; can give additional bolus if needed (2) Chest pain Status: Acute Plan: Unlikely to be cardiac etiology, patient appearing anxious at time of chest pain, resolved quickly. Troponins negative x2 EKG showing no ST segment changes but RBBB and marked sinus arrhythmia * Telemetry * Echocardiogram to r/o structural heart disease or infectious vegetations * UDS to ensure patient has not exposure to IVDU * Monitor clinically (3) Back pain Status: Acute Plan: Unclear etiology. Possibly associated with fever; no specific site of tenderness on exam. Suspect possible viral illness causing malaise and back pain. Urinary tract infection is also possible. Spinal pathology/infectious pathology less likely due to lack of known IV drug use -Pain Control -Tylenol PA 1-5 -Ketorlac 30mg IV q6hrs -BRKP of Morphine 2mg IV (4) Vomiting Status: Acute Plan: Unclear etiology, likely systemic response to infection Continue PRN Zofran We'll attempt clear liquid diet and advance as tolerated (5) DVT PPX Status: Acute Plan: -Bilateral SCD's (6) Fluids, Electrolytes, and Nutrition Status: Acute Plan: Fluids: Continue NS at 110ml/hr -s/p 3L IV NS Electrolytes: Monitor and replete as needed Nutrition: Clear liquid diet; will advance as tolerated Problem Qualifiers (1) Sepsis: Qualified Code: A41.9 - Sepsis, due to unspecified organism (2) Chest pain: Qualified Code: R07.9 - Chest pain, unspecified type (3) Back pain: Qualified Code: M54.5 - Acute bilateral low back pain without sciatica Sin Almanzar MD R1 Mar 16, 2016 15:58
--- NOTE | 2016-03-16 17:29 | EKG ---
Date Performed: 03/16/2016 Time Performed: 08:21:08 PTAGE: 25 years EKG: SINUS BRADYCARDIA RIGHT BUNDLE BRANCH BLOCK When compared to previous tracing, the patient is now Bradycardic. ABNORMAL ECG PREVIOUS TRACING : 03/16/2016 00.49 DOCTOR: Jeniffer Carter Interpretating Date/Time 03/16/2016 17:28:55
--- NOTE | 2016-03-16 17:29 | EKG ---
Date Performed: 03/16/2016 Time Performed: 00:49:51 PTAGE: 25 years EKG: Sinus rhythm WITH MARKED SINUS ARRHYTHMIA MARKED RIGHT AXIS DEVIATION RIGHT BUNDLE BRANCH BLOCK ABNORMAL ECG NO PREVIOUS TRACING DOCTOR: Jeniffer Carter Interpretating Date/Time 03/16/2016 17:28:01
--- NOTE | 2016-03-16 17:30 | EKG ---
Date Performed: 03/16/2016 Time Performed: 10:32:09 PTAGE: 25 years EKG: Sinus rhythm WITH MARKED SINUS ARRHYTHMIA MARKED RIGHT AXIS DEVIATION RIGHT BUNDLE BRANCH BLOCK When compared to previous tracing, the patient is no longer Bradycardic. ABNORMAL ECG PREVIOUS TRACING : 03/16/2016 08.21 DOCTOR: Jeniffer Carter Interpretating Date/Time 03/16/2016 17:29:45
[2016-03-16] MEDS: cefTRIAXone INJ 1,000 MG in SODIUM CHLORIDE 0.9% INJ 100 ML IV SCH (18:48)
[2016-03-16 19:31] LABS: AMPHETAMINE, URINE NEG (NEG); BARBITURATES, URINE NEG (NEG); COCAINE, URINE NEG (NEG)
[2016-03-17] VITALS: BP 112/70; PULSE 65; RESP 16; TEMP 98.9; O2SAT 98
[2016-03-17] MEDS: MORPHINE SULFATE 4 MG/ML INJ IV PUSH PRN ×3 (00:04→20:31)
[2016-03-17] MEDS: ONDANSETRON HCL 4 MG/2 ML VIAL IV PUSH PRN ×2 (00:04→10:10)
[2016-03-17 04:00] VITALS: BP_SYST 112; PULSE 62; RESP 16; TEMP 97.4; O2SAT 98
[2016-03-17] MEDS: SODIUM CHLOR 0.9% 1000 ML INJ 1,000 ML IV SCH ×3 (05:27→20:35)
[2016-03-17 06:47] LABS: BASOPHIL % 0.6 % (0.0-2.0); EOSINOPHIL # 0.1 TH/MM3 (0-0.4); EOSINOPHIL % 1.7 % (0.0-4.0); HEMATOCRIT 34.1 % (35.0-46.0); HEMO FLAGS DIFF FINAL; LYMPH % 41.4 % (9.0-44.0); LYMPHOCYTE # 2.5 TH/MM3 (1.0-4.8); MEAN CELL VOLUME 79.9 FL (80.0-100.0); MEAN CORPUSCULAR HEMOGLOBIN 26.4 PG (27.0-34.0); MONO % 6.7 % (0.0-8.0); NEUT % 49.6 % (16.0-70.0); PLATELET COUNT 220 TH/MM3 (150-450); RED BLOOD COUNT 4.27 MIL/MM3 (4.00-5.30); RED CELL DISTRIBUTION WIDTH 13.9 % (11.6-17.2)
[2016-03-17 06:58] LABS: BICARBONATE 22.2 MEQ/L (21.0-32.0); POTASSIUM 3.8 MEQ/L (3.5-5.1)
[2016-03-17 08:00] VITALS: BP 127/70; PULSE 63; RESP 17; TEMP 98.1; O2SAT 100
[2016-03-17] MEDS ORDERED: ALPRAZolam 0.5 MG TAB PO PRN (08:30)
[2016-03-17] MEDS: SODIUM CHLORIDE 0.9% FLUSH 5 ML FLUSH FLUSH SCH ×2 (09:00→20:32)
--- NOTE | 2016-03-17 09:05 | EC ---
Study Study Date:03/16/2016 STUDY CONCLUSIONS SUMMARY - Left ventricle: The cavity size was normal. Wall thickness was normal. Systolic function was normal. The estimated ejection fraction was in the range of 55% to 60%. Wall motion was normal; there were no regional wall motion abnormalities. - Aortic valve: Valve area: 2.09cm^2 (Vmax). - Tricuspid valve: Mild regurgitation. If LV function is below 40, please consider prescribing an ACEI or ARB or document rationale for non-use. PROCEDURE DATA STUDY STATUS: Elective. Procedure: Transthoracic echocardiography. Image quality was good. Scanning was performed from the parasternal, apical, and subcostal acoustic windows. Study completion: The patient tolerated the procedure well. Transthoracic echocardiography. M-mode, complete 2D, complete spectral Doppler, and color Doppler. Height: Height: 64in. Weight: Weight: 148.7lb. Body mass index: BMI: 25.6kg/m^2. Body surface area: BSA: 1.73m^2. Patient status: Inpatient. CARDIAC ANATOMY LEFT VENTRICLE: The cavity size was normal. Wall thickness was normal. Systolic function was normal. The estimated ejection fraction was in the range of 55% to 60%. Wall motion was normal; there were no regional wall motion abnormalities. AORTIC VALVE: Trileaflet; normal thickness leaflets. Doppler: Transvalvular velocity was within the normal range. There was no stenosis. No regurgitation. Valve area: 2.09cm^2 (Vmax). Indexed valve area: 1.21cm^2/m^2 (Vmax). AORTA: Aortic root: The aortic root was normal in size. MITRAL VALVE: Structurally normal valve. Doppler: Transvalvular velocity was within the normal range. There was no evidence for stenosis. No regurgitation. Peak gradient: 5mm Hg (D). LEFT ATRIUM: The atrium was normal in size. RIGHT VENTRICLE: The cavity size was normal. Wall thickness was normal. PULMONIC VALVE: Doppler: Transvalvular velocity was within the normal range. There was no evidence for stenosis. No regurgitation. TRICUSPID VALVE: Structurally normal valve. Doppler: Transvalvular velocity was within the normal range. Mild regurgitation. PULMONARY ARTERY: The main pulmonary artery was normal-sized. Systolic pressure was within the normal range. RIGHT ATRIUM: The atrium was normal in size. PERICARDIUM: There was no pericardial effusion. SYSTEMIC VEINS: Inferior vena cava: The vessel was normal in size. Patient weight: 148.7lb _Ejection fraction:_ 65-75% _Fractional shortening:_ 32% up to 5Kg 5-11.5Kg 11.6-22.9Kg 23-45Kg 45-57Kg Aortic Root 7-13 <17 13-22 17-27 17-27 LA diam 6-13 <23 24-38 33-47 37-40 RVID 10-17 7-15 7-15 7-18 8-17 LVIDd 12-22 <32 24-38 33-47 37-40 LVPW 2-4 3-6 5-7 6-8 7-8 IVS 2-4 3-6 5-7 6-8 7-8 BASIC MEASUREMENTS ADULT NORMAL Left ventricle LV internal dimension, ED, chordal 43.2 mm 43-52 level, PLAX LV internal dimension, ES, chordal 31.9 mm 23-38 level, PLAX Fractional shortening, chordal level, *26 % >29 PLAX LV posterior wall thickness, ED 6.29 mm IVS/LVPW ratio, ED 1.18 <1.3 Ventricular septum Septal thickness, ED 7.4 mm Aortic valve Leaflet separation 18 mm 15-26 BASIC MEASUREMENTS ADULT NORMAL Aortic valve Leaflet separation 18 mm 15-26 Aorta Root diameter, ED 24 mm 20-37 Left atrium Anterior-posterior dimension, ES 26 mm 19-40 Anterior-posterior dimension index, ES 1.5 cm/m^2 <2.2 LA/aortic root ratio 1.08 DOPPLER MEASUREMENTS ADULT NORMAL Main pulmonary artery Pressure, S 24 mm Hg =30 Aortic valve Peak velocity, S 132 cm/s Valve area, Vmax 2.09 cm^2 Valve area index, Vmax 1.21 cm^2/m^2 Mitral valve Peak E-wave velocity 115 cm/s Peak A-wave velocity 67.9 cm/s Deceleration time 215 ms 150-230 Peak gradient, D 5 mm Hg Peak E/A ratio 1.7 Tricuspid valve Regurgitant peak velocity 202 cm/s Peak RV-RA gradient, S 16 mm Hg Maximal regurgitant velocity 202 cm/s Systemic veins Estimated CVP 10 mm Hg Right ventricle RV pressure, S 27 mm Hg <30 Pulmonic valve Peak velocity, S 90.9 cm/s LEGEND: Mean values are shown as u=mean value. Asterisk (*) cabrera values outside specified normal range. Prepared and signed by Guzman Peace [id number]
[2016-03-17] MEDS ORDERED: PNEUMOCOCCAL POLYVALENT INJ 25 MCG/0.5 ML SYR IM ONE (10:00)
[2016-03-17] MEDS ORDERED: INFLUENZA VIRUS VACCINE (QUADRIVALENT) 0.5 ML SYR IM ONE (10:00)
--- NOTE | 2016-03-17 10:35 | HHI.FPPN ---
Subjective Remarks Had some additional chest pain this morning around 0600, per patient no history of panic attacks, did not feel like she was dying or excessively fearful. Mild SOB. No N/V, no diarrhea, no fevers/chills, no abdominal pain. (Sin Almanzar MD R1) Objective Vitals Vital Signs Date Time Temp Pulse Resp B/P Pulse Ox O2 Delivery O2 Flow Rate FiO2 03/17/16 08:00 98.1 63 17 127/70 100 03/17/16 05:40 20 03/17/16 04:00 97.4 62 16 112/ 98 03/17/16 00:00 98.9 65 16 112/70 98 03/16/16 23:59 20 03/16/16 20:00 97.6 55 16 112/65 100 03/16/16 16:00 98.6 63 18 110/73 100 I/O 03/16/16 03/16/16 03/16/16 03/17/16 03/17/16 03/17/16 07:00 15:00 23:00 07:00 15:00 23:00 Intake Total 283 ml 240 ml Output Total 300 ml Balance 283 ml -60 ml Intake Oral 240 ml IV Total 283 ml Output Urine Total 300 ml # Voids 1 # Bowel Movements 0 (Sin Almanzar MD R1) Result Diagram: 03/17/16 0542 03/17/16 0542 Imaging Last Impressions Chest X-Ray 03/16/16 0000 Signed Impressions: Service Date/Time: Wednesday, March 16, 2016 02:02 - CONCLUSION: Normal examination. Lb Stoll Jr., MD Chest CT 03/16/16 0000 Signed Impressions: Service Date/Time: Wednesday, March 16, 2016 15:04 - CONCLUSION: Normal examination. Harris Spann MD Abdomen/Pelvis CT 03/14/16 1756 Signed Impressions: Service Date/Time: Monday, March 14, 2016 19:00 - CONCLUSION: No renal or definite ureteral calculus on either side. No evidence of obstructive uropathy. Harris Spann MD Objective Remarks GEN: WDWN adult black female sitting up in bed in mild-moderate discomfort but NAD RESP: CTAB, no crackles or wheezes CV: NRRR, normal S1/S2, no MRG Abd: Soft, NDNT. Back: Spine straight, mildly TTP of lower thoracic / upper lumbar spine as well as paraspinous muscles, no overlying skin changes MSK: No peripheral cyanosis or edema. Medications and IVs Current Medications Medications (Trade) Dose Ordered Sig/Martinez Route Start Time Stop Time Status Last Admin (Zofran Inj) 4 mg Q8H PRN IV PUSH 03/14/16 21:45 03/17/16 10:10 (Morphine Inj) 2 mg Q3H PRN IV PUSH 03/14/16 21:45 03/17/16 05:26 (Toradol Inj) 30 mg Q6H PRN IV PUSH 03/14/16 21:45 03/18/16 21:00 03/16/16 21:25 Acetaminophen 500 mg 500 mg Q6H PRN PO 03/14/16 21:45 (NS 1000 ml Inj) 1,000 ml @ 110 mls/hr Q9H6M IV 03/14/16 23:00 03/17/16 05:27 (Narcan Inj) 0.4 mg UNSCH PRN IV 03/14/16 23:00 (NS Flush) 2 ml UNSCH PRN FLUSH 03/14/16 23:00 (NS Flush) 2 ml BID FLUSH 03/15/16 09:00 03/16/16 21:23 (Chloraseptic Everetts) 2 spray Q2H PRN OROPHARYNG 03/16/16 02:30 Alprazolam 0.5 mg 0.5 mg Q6H PRN PO 03/17/16 08:30 03/17/16 10:10 (Rocephin Inj/NS Inj) 100 ml @ 200 mls/hr Q24H IV 03/17/16 19:00 (Sin Almanzar MD R1) A/P Assessment and Plan Ms. Suresh is a 25 yo F with: Discharge Planning Unclear at this time (Sin Almanzar MD R1) Attending Attestation Patient seen and examined. Case reviewed and discussed Agree with plan of care as discussed with me and documented in the resident note. (Jen Murphy MD) Problem List: (1) Sepsis Status: Acute Plan: Unclear etiology. Patient meets sepsis criteria with WBC 18, HR >100. Patient complaining of back pain; UA on admission with large leuk esterase, 19 WBC, rare bacteria. History of gonorrhea in 2009. Urine test negative Continues to be afebrile Abdominal CT on admissionno renal or definite ureteral calculus; no evidence of obstructive uropathy\\ Lactic acid 1.9 UCx showing 50-100K mixed GPC, likely contaminant Blood culture growing Acinetobacter sp. GC & Chlamydia negative CT chest negative for septic emboli or other concerning pathology Echo showing no vegetations --ID consulted, appreciate their recommendations Increase Abx dose to IV Rocephin 2 g daily --Continue IV fluid supplementation; can give additional bolus if needed (2) Chest pain Status: Acute Plan: Unlikely to be cardiac etiology, patient appearing anxious at time of chest pain, resolved quickly. Troponins negative x2 EKG showing no ST segment changes but RBBB and marked sinus arrhythmia Echo showing normal EF and no wall motion abnormality CT chest normal * Telemetry * Xanax 0.5 mg PO PRN anxiety * Monitor clinically * Continue pain regimen as described under "Back pain" (3) Back pain Status: Acute Plan: Unclear etiology. Possibly associated with fever; no specific site of tenderness on exam. Suspect possible viral illness causing malaise and back pain. Urinary tract infection is also possible. Spinal pathology/infectious pathology less likely due to lack of known IV drug use -Consider back MRI to r/o osteomyelitis given positive blood culture -Pain Control -Tylenol PA 1-5 -Ketorlac 30mg IV q6hrs -BRKP of Morphine 2mg IV (4) Vomiting Status: Acute Plan: Improved today Unclear etiology, likely systemic response to infection Continue PRN Zofran Advance to regular diet (5) DVT PPX Status: Acute Plan: -Bilateral SCD's (6) Fluids, Electrolytes, and Nutrition Status: Acute Plan: Fluids: Continue NS at 110ml/hr -s/p 3L IV NS Electrolytes: Monitor and replete as needed Nutrition: Regular basic diet (Sin Almanzar MD R1) Problem Qualifiers (1) Sepsis: Qualified Code: A41.9 - Sepsis, due to unspecified organism (2) Chest pain: Qualified Code: R07.9 - Chest pain, unspecified type (3) Back pain: Qualified Code: M54.5 - Acute bilateral low back pain without sciatica Sin Almanzar MD R1 Mar 17, 2016 10:35 Jen Murphy MD Mar 17, 2016 17:06
[2016-03-17 12:00] VITALS: BP 125/69; PULSE 66; RESP 18; TEMP 97.4; O2SAT 99
[2016-03-17] MEDS ORDERED: DOCUSATE SODIUM 50 MG/SENNA 8.6 MG TAB PO ONE (12:00)
--- NOTE | 2016-03-17 14:57 | PD.ID.CON ---
History of Present Illness Service ID Consult Requested By Dr Almanzar Reason for Consult Acinetobacter bacteremia Primary Care Physician No Primary Care Physician Diagnoses: History of Present Illness 25 yo female with unremarkable past med history, denies IVDA (ever) presented with 1 week of chest pain and b/l side/lower back pain Lower back pain resolved, but now pt co non pleuritic type CP, which she describes as severe Non tender to plpapation, no change with deep breath CT chest normal; cardiac enzymes normal Pt presented with low grade fever and leukocytosis of 18 K Her blood clx is positive for acinetobacter (just one bottle); no resistance markers per Verigene Started on CFTX 1 gm daily and her fever resolved Urine culture cw contaminant, UA with 18 squamous epis Pt denies disuria DOA screen neg except for TCH Review of Systems Constitutional: COMPLAINS OF: Fever, Chills Cardiovascular: COMPLAINS OF: Chest pain Musculoskeletal: COMPLAINS OF: Back pain Other as per history of present illness, the rest of 12 point review is negative Past Family Social History Allergies: Coded Allergies: Pineapple (Verified Allergy, Severe, 03/14/16) Past Medical History UTI prior STDs per records (gonorrhea 12/2008) OB HX 1 miscarriage. Last period 02/13/2016. Past Surgical History None Active Ordered Medications CFTX Family History Grandmother- cataracts, eye stent, HTN Aunt- AIDS No other significant FH reported Social History Patient lives with friend; works at [employer] Alcohol: None Smoking: No cigarettes Illicit drugs: Lortab recently. Patient smokes marijuana Physical Exam Vital Signs Vital Signs Date Time Temp Pulse Resp B/P Pulse Ox O2 Delivery O2 Flow Rate FiO2 03/17/16 12:00 97.4 66 18 125/69 99 03/17/16 08:00 98.1 63 17 127/70 100 03/17/16 05:40 20 03/17/16 04:00 97.4 62 16 112/ 98 03/17/16 00:00 98.9 65 16 112/70 98 03/16/16 23:59 20 03/16/16 20:00 97.6 55 16 112/65 100 03/16/16 16:00 98.6 63 18 110/73 100 Physical Exam CONSTITUTIONAL/GENERAL: This is an adequately nourished patient, in no apparent distress. SKIN: No jaundice, rashes, or lesions. No needle tracks. Skin temperature appropriate. Not diaphoretic. HEAD: Atraumatic. Normocephalic. EYES: Pupils equal and round and reactive. Extraocular motions intact. No scleral icterus. No injection or drainage. Fundi not examined. ENT: Hearing grossly normal. Nose without bleeding or purulent drainage. Oral mucosae without visible erythema, exudates, masses, or lesions. Dentition is good NECK: Trachea midline. Supple, nontender. CARDIOVASCULAR: Regular rate and rhythm without murmurs, gallops, or rubs. No JVD. Peripheral pulses symmetric. Chest not tender to palpation RESPIRATORY/CHEST: Symmetric, unlabored respirations. Clear to auscultation. Breath sounds equal bilaterally. No wheezes, rales, or rhonchi. GASTROINTESTINAL: Abdomen soft, non-tender, nondistended. No hepato-splenomegaly , or palpable masses. No guarding. Bowel sounds present. GENITOURINARY: Without palpable bladder distension. MUSCULOSKELETAL: Extremities without clubbing, cyanosis, or edema. No joint tenderness or effusion noted. No calf tenderness. No mottling or clubbing. LYMPHATICS: No palpable cervical or supraclavicular adenopathy. NEUROLOGICAL: Awake and alert. Motor and sensory grossly within normal limits. Follows commands. Normal speech. Moves all extremities. PSYCHIATRIC: No obvious anxiety/depression. no apparent hallucinations or other psychotic thought process. Laboratory Laboratory Tests Test 03/16/16 03/17/16 18:50 05:42 Urine Opiates Screen NEG Urine Barbiturates Screen NEG Urine Amphetamines Screen NEG Urine Benzodiazepines Screen NEG Urine Cocaine Screen NEG Urine Cannabinoids Screen POS White Blood Count 6.0 Red Blood Count 4.27 Hemoglobin 11.3 Hematocrit 34.1 Mean Corpuscular Volume 79.9 Mean Corpuscular Hemoglobin 26.4 Mean Corpuscular Hemoglobin 33.0 Concent Red Cell Distribution Width 13.9 Platelet Count 220 Mean Platelet Volume 9.2 Neutrophils (%) (Auto) 49.6 Lymphocytes (%) (Auto) 41.4 Monocytes (%) (Auto) 6.7 Eosinophils (%) (Auto) 1.7 Basophils (%) (Auto) 0.6 Neutrophils # (Auto) 3.0 Lymphocytes # (Auto) 2.5 Monocytes # (Auto) 0.4 Eosinophils # (Auto) 0.1 Basophils # (Auto) 0.0 CBC Comment DIFF FINAL Differential Comment Sodium Level 139 Potassium Level 3.8 Chloride Level 107 Carbon Dioxide Level 22.2 Anion Gap 10 Blood Urea Nitrogen 4 Creatinine 0.77 Estimat Glomerular Filtration 111 Rate Random Glucose 75 Calcium Level 8.5 Date/Time Procedure Status Source Growth 03/16/16 14:25 Aerobic Blood Culture - Preliminary Resulted Blood Peripheral NO GROWTH IN 1 DAY 03/16/16 14:25 Anaerobic Blood Culture - Preliminary Resulted Blood Peripheral NO GROWTH IN 1 DAY 03/16/16 08:56 Group A Streptococcus Screen (JANEL) - Final Complete Throat 03/16/16 08:56 Group A Streptococcus Screen Received Throat Pending 03/14/16 18:10 Urine Culture - Final Complete Urine Clean Catch 10-50,000 CFU/ML MIXED GRAM POSITIVE ... 03/14/16 18:10 Influenza Types A,B Antigen (JANEL) - Final Complete Nasal Aspirate NEGATIVE FOR FLU A AND B ANTIGEN.... Result Diagram: 03/17/16 0542 03/17/16 0542 Imaging Last Impressions Chest X-Ray 03/16/16 0000 Signed Impressions: Service Date/Time: Wednesday, March 16, 2016 02:02 - CONCLUSION: Normal examination. Lb Stoll Jr., MD Chest CT 03/16/16 0000 Signed Impressions: Service Date/Time: Wednesday, March 16, 2016 15:04 - CONCLUSION: Normal examination. Harris Spann MD Abdomen/Pelvis CT 03/14/16 1756 Signed Impressions: Service Date/Time: Monday, March 14, 2016 19:00 - CONCLUSION: No renal or definite ureteral calculus on either side. No evidence of obstructive uropathy. Harris Spann MD Assessment and Plan Assessment and Plan Acinetobacter low grade bacteremia and chest pain - no source apparent at this point - doubt UTI due to lack of smx, UA is inadeqate collection, contaminated; sq epis present in high amount - ? endocarditis Lower back pain ? - cont CFTX for now 2 gm daily - fu sensitivities on Acinetobacter - 2 D echo - back MRI - repeat UA Discussed Condition With Dr Yohan Salmeron,Becky Cui MD Mar 17, 2016 14:57
[2016-03-17] MEDS: cefTRIAXone INJ 2,000 MG in SODIUM CHLORIDE 0.9% INJ 100 ML IV SCH ×2 (18:12→20:32)
[2016-03-17] MEDS ORDERED: GADODIAMIDE PF 287 MG/ML 5 ML VIAL (for RAD MRI) IV ONE (18:14)
--- NOTE | 2016-03-17 18:25 | RADRPT ---
EXAM DATE/TIME: 03/17/2016 17:12 [facility] COMPARISON: No previous studies available for comparison. INDICATIONS : Osteomyelitis. Back pain. CONTRAST: 13 cc Omniscan (gadodiamide) IV MEDICAL HISTORY : None. SURGICAL HISTORY : None. ENCOUNTER: Subsequent ACUITY: 4-6 days PAIN SCORE: 7/10 LOCATION: back. TECHNIQUE: Multiplanar multisequence MRI of the thoracic spine was performed. FINDINGS: VERTEBRA: Normal vertebral body height. Homogeneous marrow signal. ALIGNMENT: Normal. CORD: Normal position and configuration. POST CONTRAST: No abnormal areas of contrast enhancement seen. T1-T2: Normal. T2-T3: The thecal sac has a normal diameter. No evidence of disc bulge or protrusion. T3-T4: The thecal sac has a normal diameter. No evidence of disc bulge or protrusion. T4-T5: The thecal sac has a normal diameter. No evidence of disc bulge or protrusion. T5-T6: The thecal sac has a normal diameter. No evidence of disc bulge or protrusion. T6-T7: The thecal sac has a normal diameter. No evidence of disc bulge or protrusion. T7-T8: The thecal sac has a normal diameter. No evidence of disc bulge or protrusion. T8-T9: The thecal sac has a normal diameter. No evidence of disc bulge or protrusion. T9-T10: The thecal sac has a normal diameter. No evidence of disc bulge or protrusion. T10-T11: The thecal sac has a normal diameter. No evidence of disc bulge or protrusion. T11-T12: The thecal sac has a normal diameter. No evidence of disc bulge or protrusion. T12-L1: The thecal sac has a normal diameter. No evidence of disc bulge or protrusion. CONCLUSION: 1. Unremarkable MRI of the thoracic spine. Specifically no evidence for osteomyelitis. Hugo Cunha MD on March 17, 2016 at 18:19 Board Certified Radiologist. This report was verified electronically.
--- NOTE | 2016-03-17 18:27 | RADRPT ---
EXAM DATE/TIME: 03/17/2016 17:12 [facility] COMPARISON: No previous studies available for comparison. INDICATIONS : Osteomyelitis. Back pain. CONTRAST: 13 cc Omniscan (gadodiamide) IV MEDICAL HISTORY : None. SURGICAL HISTORY : None. ENCOUNTER: Subsequent ACUITY: 4-6 days PAIN SCORE: 7/10 LOCATION: back. TECHNIQUE: Multiplanar multisequence MRI of the lumbar spine was performed with and without contrast. FINDINGS: The most caudal appearing lumbar vertebra is numbered as L5. VERTEBRAE: Homogeneous signal. Normal alignment. CONUS: Normal level and configuration. POST CONTRAST: No abnormal areas of contrast enhancement are seen. T12-L1: The thecal sac has a normal diameter. No evidence of disc bulge or protrusion. The neural foramina are patent bilaterally. L1-L2: The thecal sac has a normal diameter. No evidence of disc bulge or protrusion. The neural foramina are patent bilaterally. L2-L3: The thecal sac has a normal diameter. No evidence of disc bulge or protrusion. The neural foramina are patent bilaterally. L3-L4: The thecal sac has a normal diameter. No evidence of disc bulge or protrusion. The neural foramina are patent bilaterally. L4-L5: The thecal sac has a normal diameter. No evidence of disc bulge or protrusion. The neural foramina are patent bilaterally. L5-S1: The thecal sac has a normal diameter. No evidence of disc bulge or protrusion. The neural foramina are patent bilaterally. CONCLUSION: Normal examination for a patient of this age. Hugo Cunha MD on March 17, 2016 at 18:23 Board Certified Radiologist. This report was verified electronically.
[2016-03-17 18:34] VITALS: O2SAT 99
[2016-03-17] MEDS: ACETAMINOPHEN 500 MG CPLT PO PRN (19:24)
[2016-03-17] MEDS ORDERED: LORazepam 0.5 MG TAB PO PRN (20:45)
[2016-03-17 20:50] VITALS: BP 110/74; PULSE 68; RESP 17; TEMP 97.7; O2SAT 96
[2016-03-17] MEDS ORDERED: DOCUSATE SODIUM 50 MG/SENNA 8.6 MG TAB PO PRN (21:00)
[2016-03-17] MEDS ORDERED: PILL SPLITTER OTHER PRN (21:00)
[2016-03-18 00:17] VITALS: BP 114/76; PULSE 69; RESP 18; TEMP 98; O2SAT 96
[2016-03-18 04:08] VITALS: BP 121/83; PULSE 57; RESP 16; TEMP 98.6; O2SAT 98
[2016-03-18] MEDS: ONDANSETRON HCL 4 MG/2 ML VIAL IV PUSH PRN (04:27)
[2016-03-18 07:48] LABS: AUTOMATED NEUTROPHIL # 3.3 TH/MM3 (1.8-7.7); BASOPHIL # 0.1 TH/MM3 (0-0.2); BASOPHIL % 0.9 % (0.0-2.0); EOSINOPHIL # 0.1 TH/MM3 (0-0.4); EOSINOPHIL % 1.7 % (0.0-4.0); HEMATOCRIT 34.2 % (35.0-46.0); HEMO FLAGS DIFF FINAL; LYMPH % 38.3 % (9.0-44.0); LYMPHOCYTE # 2.4 TH/MM3 (1.0-4.8); MEAN CELL VOLUME 80.3 FL (80.0-100.0); MEAN CORPUSCULAR HEMOGLOBIN 26.9 PG (27.0-34.0); MEAN CORPUSCULAR HGB CONC 33.5 % (32.0-36.0); MONO % 6.3 % (0.0-8.0); NEUT % 52.8 % (16.0-70.0); PLATELET COUNT 213 TH/MM3 (150-450); RED BLOOD COUNT 4.26 MIL/MM3 (4.00-5.30); WHITE BLOOD COUNT 6.2 TH/MM3 (4.0-11.0)
[2016-03-18] MEDS: ACETAMINOPHEN 500 MG CPLT PO PRN (07:53)
[2016-03-18] MEDS: SODIUM CHLORIDE 0.9% FLUSH 5 ML FLUSH FLUSH SCH ×2 (07:53→20:16)
[2016-03-18 08:00] VITALS: BP 121/73; PULSE 56; RESP 16; TEMP 97.7; O2SAT 100
[2016-03-18] MEDS: SODIUM CHLOR 0.9% 1000 ML INJ 1,000 ML IV SCH ×2 (08:54→18:00)
[2016-03-18] MEDS ORDERED: ACETAMINOPHEN 325 MG TAB PO PRN (09:30)
[2016-03-18] MEDS ORDERED: IBUPROFEN 400 MG TAB PO PRN (09:30)
[2016-03-18 10:55] LABS: BLOOD, URINE TRACE (NEG); COMMENT (UR) CULT NOT INDICATED; CULTURE IF INDICATED CULT NOT INDICATED; GLUCOSE,URINE NEG (NEG); KETONE, URINE 40 mg/dL (NEG); MUCUS URINE FEW /lpf (OCC); NITRITE,URINE NEG (NEG); SQUAMOUS EPITHELIAL CELL URINE 1 /hpf (0-5); URINE COLOR LIGHT-YELLOW (YELLW/STRAW)
[2016-03-18 11:59] LABS: CKMB 0.5 NG/ML (0.5-3.6)
[2016-03-18 16:00] VITALS: BP 119/78; PULSE 62; RESP 17; TEMP 98.1; O2SAT 100
[2016-03-18] MEDS: cefTRIAXone INJ 2,000 MG in SODIUM CHLORIDE 0.9% INJ 100 ML IV SCH (17:17)
[2016-03-18] MEDS: ALPRAZolam 0.25 MG TAB PO PRN (18:24)
--- NOTE | 2016-03-18 19:17 | HHI.FPPN ---
Subjective Remarks Ms. Suresh was afebrile with stable vital signs overnight; patient reports continued chest pain overnight. Patient denies additional back pain. No dysuria. No shortness of breath. Patient reports lower extremity weakness with ambulation. (Lenard Tucker MD R2) Objective Vitals Vital Signs Date Time Temp Pulse Resp B/P Pulse Ox O2 Delivery O2 Flow Rate FiO2 03/18/16 18:44 21 03/18/16 16:00 98.1 62 17 119/78 100 03/18/16 08:00 97.7 56 16 121/73 100 03/18/16 04:08 98.6 57 16 121/83 98 03/18/16 00:17 98.0 69 18 114/76 96 03/17/16 21:54 18 03/17/16 20:50 97.7 68 17 110/74 96 03/17/16 20:31 18 I/O 03/17/16 03/17/16 03/17/16 03/18/16 03/18/16 03/18/16 07:00 15:00 23:00 07:00 15:00 23:00 Intake Total 240 ml 918 ml 360 ml 1258 ml 120 ml Output Total 300 ml 300 ml 600 ml 600 ml 625 ml Balance -60 ml 618 ml -240 ml 658 ml -505 ml Intake Oral 240 ml 0 ml 360 ml 280 ml 120 ml IV Total 918 ml 0 ml 978 ml Output Urine Total 300 ml 300 ml 600 ml 600 ml 625 ml # Bowel Movements 0 0 0 (Lenard Tucker MD R2) Result Diagram: 03/18/16 0526 03/17/16 0542 Imaging Last Impressions Thoracic Spine MRI 03/17/16 0000 Signed Impressions: Service Date/Time: Thursday, March 17, 2016 17:12 - CONCLUSION: 1. Unremarkable MRI of the thoracic spine. Specifically no evidence for osteomyelitis. Hugo Cunha MD Lumbar Spine MRI 03/17/16 0000 Signed Impressions: Service Date/Time: Thursday, March 17, 2016 17:12 - CONCLUSION: Normal examination for a patient of this age. Hugo Cunha MD Chest X-Ray 03/16/16 0000 Signed Impressions: Service Date/Time: Wednesday, March 16, 2016 02:02 - CONCLUSION: Normal examination. Lb Stoll Jr., MD Chest CT 03/16/16 0000 Signed Impressions: Service Date/Time: Wednesday, March 16, 2016 15:04 - CONCLUSION: Normal examination. Harris Spann MD Abdomen/Pelvis CT 03/14/16 1756 Signed Impressions: Service Date/Time: Monday, March 14, 2016 19:00 - CONCLUSION: No renal or definite ureteral calculus on either side. No evidence of obstructive uropathy. Harris Spann MD Objective Remarks GEN: Patient sitting in bedside chair in mild-moderate discomfort but NAD RESP: CTAB, no crackles or wheezes CV: NRRR, normal S1/S2, no MRG Abd: Soft, NDNT. Neuro: Normal strength/sensation peripherally; grossly normal cranial nerves MSK: No peripheral cyanosis or edema. Patient witnessed ambulating; appeared weak and tearful (Lenard Tucker MD R2) A/P Assessment and Plan Ms. Suresh is a 25 yo F with: Discharge Planning Unclear at this time (Lenard Tucker MD R2) Attending Attestation Patient seen and examined. Case reviewed and discussed Agree with plan of care as discussed with me and documented in the resident note. (Jen Murphy MD) Problem List: (1) Sepsis Status: Acute Plan: Unclear etiology. Patient meets sepsis criteria with WBC 18, HR >100. Patient complaining of back pain; UA on admission with large leuk esterase, 19 WBC, rare bacteria. History of gonorrhea in 2008. Urine test negative Continues to be afebrile Abdominal CT on admissionno renal or definite ureteral calculus; no evidence of obstructive uropathy\\ Lactic acid 1.9 UCx showing 50-100K mixed GPC, likely contaminant Blood culture growing Acinetobacter sp. GC & Chlamydia negative CT chest negative for septic emboli or other concerning pathology Echo showing no vegetations --ID consulted, appreciate their recommendations Continue IV Rocephin 2 g daily --Continue IV fluid supplementation; can give additional bolus if needed (2) Chest pain Status: Resolved Plan: Unlikely to be cardiac etiology, patient appearing anxious at time of chest pain, resolved quickly. Troponins negative x2 EKG showing no ST segment changes but RBBB and marked sinus arrhythmia Echo showing normal EF and no wall motion abnormality CT chest normal * Telemetry * Xanax 0.5 mg PO PRN anxiety * Monitor clinically * Continue pain regimen as described under "Back pain" (3) Back pain Status: Resolved Plan: Unclear etiology. Possibly associated with fever; no specific site of tenderness on exam. Suspect possible viral illness causing malaise and back pain. Urinary tract infection is also possible. Spinal pathology/infectious pathology less likely due to lack of known IV drug use -Consider back MRI to r/o osteomyelitis given positive blood culture -Pain Control -Tylenol, Ibuprofen PA 1-2 -Roxicodone 5mg q4hrs PA 3-5 -Roxicodone 10mg q4hrs PA 6-10 -BRKP of Morphine 2mg IV (4) Vomiting Status: Resolved Plan: Improved today Unclear etiology, likely systemic response to infection Continue PRN Zofran Advance to regular diet (5) DVT PPX Status: Acute Plan: -Bilateral SCD's (6) Fluids, Electrolytes, and Nutrition Status: Acute Plan: Fluids: Continue NS at 110ml/hr -s/p 3L IV NS Electrolytes: Monitor and replete as needed Nutrition: Regular basic diet (Lenard Tucekr MD R2) Problem Qualifiers (1) Sepsis: Qualified Code: A41.9 - Sepsis, due to unspecified organism (2) Chest pain: Qualified Code: R07.9 - Chest pain, unspecified type (3) Back pain: Qualified Code: M54.5 - Acute bilateral low back pain without sciatica Lenard Tucker MD R2 Mar 18, 2016 19:17 Jen Murphy MD Mar 19, 2016 16:36
[2016-03-18 19:33] VITALS: PULSE 57
[2016-03-18 20:00] VITALS: BP 107/69; PULSE 54; RESP 20; TEMP 97.7; O2SAT 100
[2016-03-19] VITALS: BP 112/77; PULSE 50; RESP 20; TEMP 98; O2SAT 100
[2016-03-19] MEDS: ALPRAZolam 0.25 MG TAB PO PRN (02:09)
[2016-03-19] MEDS: SODIUM CHLOR 0.9% 1000 ML INJ 1,000 ML IV SCH ×2 (03:26→12:12)
[2016-03-19 04:00] VITALS: BP 122/72; PULSE 50; RESP 20; TEMP 97.9; O2SAT 100
[2016-03-19 06:14] LABS: AUTOMATED NEUTROPHIL # 2.9 TH/MM3 (1.8-7.7); BASOPHIL % 0.7 % (0.0-2.0); EOSINOPHIL # 0.1 TH/MM3 (0-0.4); EOSINOPHIL % 1.3 % (0.0-4.0); HEMATOCRIT 32.9 % (35.0-46.0); HEMO FLAGS DIFF FINAL; LYMPH % 36.2 % (9.0-44.0); LYMPHOCYTE # 1.9 TH/MM3 (1.0-4.8); MEAN CELL VOLUME 79.7 FL (80.0-100.0); MEAN CORPUSCULAR HGB CONC 33.8 % (32.0-36.0); MONO % 6.8 % (0.0-8.0); PLATELET COUNT 232 TH/MM3 (150-450); RED BLOOD COUNT 4.13 MIL/MM3 (4.00-5.30); WHITE BLOOD COUNT 5.2 TH/MM3 (4.0-11.0)
[2016-03-19 06:27] LABS: BICARBONATE 25.3 MEQ/L (21.0-32.0); POTASSIUM 3.7 MEQ/L (3.5-5.1)
[2016-03-19 08:00] VITALS: BP 129/84; PULSE 74; RESP 20; TEMP 97.9; O2SAT 100
[2016-03-19] MEDS: SODIUM CHLORIDE 0.9% FLUSH 5 ML FLUSH FLUSH SCH (09:00)
[2016-03-19 10:44] VITALS: O2SAT 99
[2016-03-19 12:00] VITALS: BP 116/71; PULSE 66; RESP 16; TEMP 96.3; O2SAT 100
--- NOTE | 2016-03-19 15:00 | HHI.FPPN ---
Subjective Remarks Ms. Suresh was afebrile with vital signs overnight. Patient reports that she is doing much better this morning. Patient states that her chest pain has resolved and that she does not feel abdominal or back pain. No reported shortness of breath or dysuria. Patient states Roxycodone is working well for her pain. Patient attributes her prior chest pain to anxiety. Per EMR, patient has been taking Xanax for anxiety. (Lenard Tucker MD R2) Objective Vitals Vital Signs Date Time Temp Pulse Resp B/P Pulse Ox O2 Delivery O2 Flow Rate FiO2 03/19/16 10:44 99 21 03/19/16 08:00 97.9 74 20 129/84 100 03/19/16 04:00 97.9 50 20 122/72 100 03/19/16 00:00 98.0 50 20 112/77 100 03/18/16 20:00 97.7 54 20 107/69 100 03/18/16 19:33 57 03/18/16 18:44 21 03/18/16 16:00 98.1 62 17 119/78 100 I/O 03/18/16 03/18/16 03/18/16 03/19/16 03/19/16 03/19/16 06:59 14:59 22:59 06:59 14:59 22:59 Intake Total 1258 ml 120 ml 790 ml 1245 ml Output Total 600 ml 625 ml 900 ml 1250 ml Balance 658 ml -505 ml -110 ml -5 ml Intake Oral 280 ml 120 ml 240 ml 120 ml IV Total 978 ml 550 ml 1125 ml Output Urine Total 600 ml 625 ml 900 ml 1250 ml # Bowel Movements 0 (Lenard Tucker MD R2) Result Diagram: 03/19/16 0554 03/19/16 0554 Imaging Last Impressions Thoracic Spine MRI 03/17/16 0000 Signed Impressions: Service Date/Time: Thursday, March 17, 2016 17:12 - CONCLUSION: 1. Unremarkable MRI of the thoracic spine. Specifically no evidence for osteomyelitis. Hugo Cunha MD Lumbar Spine MRI 03/17/16 0000 Signed Impressions: Service Date/Time: Thursday, March 17, 2016 17:12 - CONCLUSION: Normal examination for a patient of this age. Hugo Cunha MD Chest X-Ray 03/16/16 0000 Signed Impressions: Service Date/Time: Wednesday, March 16, 2016 02:02 - CONCLUSION: Normal examination. Lb Stoll Jr., MD Chest CT 03/16/16 0000 Signed Impressions: Service Date/Time: Wednesday, March 16, 2016 15:04 - CONCLUSION: Normal examination. Harris Spann MD Abdomen/Pelvis CT 03/14/16 1756 Signed Impressions: Service Date/Time: Monday, March 14, 2016 19:00 - CONCLUSION: No renal or definite ureteral calculus on either side. No evidence of obstructive uropathy. Harris Spann MD Objective Remarks GEN: Patient sitting in bedside chair in no acute distress Skin: No visible rashes or lesions. Wrist tattoo present RESP: CTAB, no crackles or wheezes CV: NRRR, normal S1/S2, no MRG Abd: Soft, NDNT. Neuro: Normal strength/sensation peripherally; grossly normal cranial nerves MSK: No peripheral cyanosis or edema. Psych: Patient appears content, laughing (Lenard Tucker MD R2) A/P Assessment and Plan Ms. Suresh is a 25 yo F with: Discharge Planning Unclear at this time (Lenard Tucker MD R2) Attending Attestation Patient seen and examined with the resident team. Case reviewed and discussed Agree with plan of care as discussed with me and documented in the resident note. (Jen Murphy MD) Problem List: (1) Sepsis Status: Acute Plan: Impression: Unclear etiology. Patient met sepsis criteria on admission with WBC 18, HR >100. Subesquently resolved. Patient complained of back pain on admission; later complained of chest pain. UA on admission with large leuk esterase, 19 WBC, rare bacteria. History of gonorrhea in 2008. Urine test negative Lactic acid 1.9 ESR 21, Crp 0.67 GC & Chlamydia negative Abdominal CT on admissionno renal or definite ureteral calculus; no evidence of obstructive uropathy CT Lumbar and thoracic spines negative for septic emboli or other concerning pathology Echo showing no vegetations Cultures: Urine (03/14)- 50-100K mixed GPC, likely contaminant Blood culture (03/14)- growing Acinetobacter sp.; resistant to Bactrim --ID consulted, appreciate recommendations Continue IV Rocephin 2 g daily --Continue IV fluid supplementation at maintenance (2) Chest pain Status: Resolved Plan: Unlikely to be cardiac etiology, patient appearing anxious at time of chest pain, resolved quickly. Troponins negative x2 EKG showing no ST segment changes but RBBB and marked sinus arrhythmia Echo showing normal EF and no wall motion abnormality CT chest normal * Telemetry * Xanax 0.5 mg PO PRN anxiety * Monitor clinically * Continue pain regimen as described under "Back pain" (3) Back pain Status: Resolved Plan: Impression: Unclear etiology. Possibly associated with fever; no specific site of tenderness on exam. Suspect possible viral illness causing malaise and back pain. Urinary tract infection is also possible. Spinal pathology/infectious pathology less likely due to lack of known IV drug use -Consider back MRI to r/o osteomyelitis given positive blood culture -Pain Control -Tylenol, Ibuprofen PA 1-2 -Roxicodone 5mg q4hrs PA 3-5 -Roxicodone 10mg q4hrs PA 6-10 -BRKP of Morphine 2mg IV (4) Vomiting Status: Resolved Plan: Improved Unclear etiology, likely systemic response to infection Continue PRN Zofran Regular diet (5) DVT PPX Status: Acute Plan: -Bilateral SCD's (6) Fluids, Electrolytes, and Nutrition Status: Acute Plan: Fluids: Continue NS at 110ml/hr -s/p 3L IV NS Electrolytes: Monitor and replete as needed Nutrition: Regular basic diet (Lenard Tucker MD R2) Remarks Discussed with Dr. Salmeron: Patient may be discharged on 2 weeks of Levaquin. Patient to return for medical evaluation with any fevers or pain. Patient agreeable to this plan; and again denies any IV drug use. Patient states she has funding for obtaining Levaquin with [employer] discount. Patient provided with contact info since she does not have insurance or a physician. (Lenard Tucker MD R2) Problem Qualifiers (1) Sepsis: Qualified Code: A41.9 - Sepsis, due to unspecified organism (2) Chest pain: Qualified Code: R07.9 - Chest pain, unspecified type (3) Back pain: Qualified Code: M54.5 - Acute bilateral low back pain without sciatica Lenard Tucker MD R2 Mar 19, 2016 14:59 Jen Murphy MD Mar 20, 2016 10:44
[2016-03-19 16:00] VITALS: BP 101/67; PULSE 84; RESP 14; TEMP 97.6; O2SAT 100
--- NOTE | 2016-03-19 16:00 | HHI.DCPOC ---
Discharge Care Plan Diagnosis: (1) Sepsis Goals to Promote Your Health * To prevent worsening of your condition and complications * To maintain your health at the optimal level Directions to Meet Your Goals Take your medications as prescribed Follow your dietary instruction Follow activity as directed Keep your appointments as scheduled Take your immunizations and boosters as scheduled If your symptoms worsen call your PCP, if no PCP go to Urgent Care Center or Emergency Room Smoking is Dangerous to Your Health. Avoid second hand smoke Call the 24-hour hour crisis hotline for domestic abuse at Lenard Tucker MD R2 Mar 19, 2016 16:00
[2016-03-19] MEDS ORDERED: LEVA750T PO (16:01)
--- NOTE | 2016-03-19 16:58 | HHI.DS ---
Discharge Summary Admission Date Mar 14, 2016 at 7:50 pm Discharge Date: Mar 19, 2016 Admitting Diagnosis Sepsis, pyelonephritis (1) Sepsis Diagnosis: Principal Plan: Impression: Unclear etiology. Patient met sepsis criteria on admission with WBC 18, HR >100. Subesquently resolved. Patient complained of back pain on admission; later complained of chest pain. UA on admission with large leuk esterase, 19 WBC, rare bacteria. History of gonorrhea in 2008. Urine test negative Lactic acid 1.9 ESR 21, Crp 0.67 GC & Chlamydia negative Abdominal CT on admissionno renal or definite ureteral calculus; no evidence of obstructive uropathy CT Lumbar and thoracic spines negative for septic emboli or other concerning pathology Echo showing no vegetations Cultures: Urine (03/14)- 50-100K mixed GPC, likely contaminant Blood culture (03/14)- growing Acinetobacter sp.; resistant to Bactrim --ID consulted, appreciate recommendations Continue IV Rocephin 2 g daily --Continue IV fluid supplementation at maintenance (2) Chest pain Diagnosis: Secondary Plan: Unlikely to be cardiac etiology, patient appearing anxious at time of chest pain, resolved quickly. Troponins negative x2 EKG showing no ST segment changes but RBBB and marked sinus arrhythmia Echo showing normal EF and no wall motion abnormality CT chest normal * Telemetry * Xanax 0.5 mg PO PRN anxiety * Monitor clinically * Continue pain regimen as described under "Back pain" (3) Back pain Diagnosis: Secondary Plan: Impression: Unclear etiology. Possibly associated with fever; no specific site of tenderness on exam. Suspect possible viral illness causing malaise and back pain. Urinary tract infection is also possible. Spinal pathology/infectious pathology less likely due to lack of known IV drug use -Consider back MRI to r/o osteomyelitis given positive blood culture -Pain Control -Tylenol, Ibuprofen PA 1-2 -Roxicodone 5mg q4hrs PA 3-5 -Roxicodone 10mg q4hrs PA 6-10 -BRKP of Morphine 2mg IV (4) Vomiting Diagnosis: Secondary Plan: Improved Unclear etiology, likely systemic response to infection Continue PRN Zofran Regular diet Consultants ID - Dr. Salmeron Brief History Ms. Suresh is a 25-year-old female with presents with back pain and generalized discomfort. Patient reports that she started feeling malaise yesterday evening, then began vomiting later that night once she arrived at work ([employer]). Since onset of vomiting, patient states that she has been unable to tolerate liquids such as water, Gatorade, or food. Prior to onset of vomiting and malaise, patient reports cough and nasal congestion which has been present for several days. Cough is predominantly dry but is sometimes associated with small quantities of mucus. Patient reports neck and back pain when coughing. Patient reports that she cannot lay on her back without nausea. Patients' back pain is diffuse, more central than flank. Mild abdominal pain. No pain with urination or urinary urgency. Regarding patient's neck pain, she denies pain with flexion of the neck or neck movement in general. Patient also denies headaches. Patient reports that she has bilateral leg/thigh pain. Patient may have had a fever last night; she is unsure. No skin bruising or skin lesions. She denies chest pain or shortness of breath. No reported sick contacts. Patient denies any sexual intercourse for the past 2 months; she reports no new sexual partners. Patient denies history of STDs but reports prior UTI CBC/BMP: 03/19/16 0554 03/19/16 0554 Significant Findings Laboratory Tests Test 03/16/16 03/17/16 03/18/16 03/18/16 18:50 05:42 05:26 10:10 Urine Cannabinoids Screen POS (NEG) Hemoglobin 11.3 GM/DL 11.5 GM/DL (11.6-15.3) (11.6-15.3) Hematocrit 34.1 % 34.2 % (35.0-46.0) (35.0-46.0) Mean Corpuscular Volume 79.9 FL (80.0-100.0) Mean Corpuscular Hemoglobin 26.4 PG 26.9 PG (27.0-34.0) (27.0-34.0) Blood Urea Nitrogen 4 MG/DL (7-18) Urine Ketones 40 mg/dL (NEG) Urine Occult Blood TRACE (NEG) Urine Mucus FEW /lpf (OCC) Test 03/18/16 03/19/16 10:57 05:54 Total Creatine Kinase 215 U/L (26-192) Hemoglobin 11.1 GM/DL (11.6-15.3) Hematocrit 32.9 % (35.0-46.0) Mean Corpuscular Volume 79.7 FL (80.0-100.0) Erythrocyte Sedimentation Rate 21 mm/hr (0-20) Blood Urea Nitrogen 4 MG/DL (7-18) Random Glucose 69 MG/DL (74-106) Calcium Level 8.3 MG/DL (8.5-10.1) C-Reactive Protein 0.67 MG/DL (0.00-0.30) Imaging Last Impressions Thoracic Spine MRI 03/17/16 0000 Signed Impressions: Service Date/Time: Thursday, March 17, 2016 17:12 - CONCLUSION: 1. Unremarkable MRI of the thoracic spine. Specifically no evidence for osteomyelitis. Hugo Cunha MD Lumbar Spine MRI 03/17/16 0000 Signed Impressions: Service Date/Time: Thursday, March 17, 2016 17:12 - CONCLUSION: Normal examination for a patient of this age. Hugo Cunha MD Chest X-Ray 03/16/16 0000 Signed Impressions: Service Date/Time: Wednesday, March 16, 2016 02:02 - CONCLUSION: Normal examination. Lb Stoll Jr., MD Chest CT 03/16/16 0000 Signed Impressions: Service Date/Time: Wednesday, March 16, 2016 15:04 - CONCLUSION: Normal examination. Harris Spann MD Abdomen/Pelvis CT 03/14/16 8496 Signed Impressions: Service Date/Time: Monday, March 14, 2016 19:00 - CONCLUSION: No renal or definite ureteral calculus on either side. No evidence of obstructive uropathy. Harris Spann MD PE at Discharge GEN: Patient sitting in bedside chair in no acute distress Skin: No visible rashes or lesions. Wrist tattoo present RESP: CTAB, no crackles or wheezes CV: NRRR, normal S1/S2, no MRG Abd: Soft, NDNT. Neuro: Normal strength/sensation peripherally; grossly normal cranial nerves MSK: No peripheral cyanosis or edema. Psych: Patient appears content, laughing Hospital Course Admitted for sepsis by vitals criteria, initially source thought to be urinary. Started on Rocephin. Blood culture grew back Acinetobacter in one tube of 2. Patient had remained afebrile so continued on rocephin per ID recommendations. Back MRI negative for osteomyelitis, drug screen negative for drug use except marijuana which patient had admitted to on admission. No other source identified by abdominal CT or chest CT. Patient continued to improve clinically and was cleared by PT and ID for discharge. ID recommended discharge with Levaquin for 2 weeks. Pt Condition on Discharge: Stable Discharge Disposition: Discharge Home Discharge Instructions DIET: Follow Instructions for: As Tolerated, No Restrictions Activities you can perform: Regular-No Restrictions Follow up Referrals: PCP Follow-up - 1 Week New Medications: Levofloxacin (Levaquin) 750 Mg Tab 750 MG PO DAILY Infection #14 Ref 0 TAB Sin Almanzar MD R1 Mar 19, 2016 4:58 pm
== END 2016-03-19 20:56 | disposition home or self-care (01) | DRG 872 ==
LOC: NEPA 17:24 → NEDA 19:50 → NEPHCDU 23:58 → N07B 03-16 15:16
PROVIDERS: ADMIT Family Medicine; ATTEND Family Medicine
DX: A41.59 Other Gram-negative sepsis (principal); N12 Tubulo-interstitial nephritis, not specified as acute or chronic; E86.0 Dehydration; E87.6 Hypokalemia; R11.2 Nausea with vomiting, unspecified; R07.9 Chest pain, unspecified; M54.5 Low back pain; B34.9 Viral infection, unspecified; D64.9 Anemia, unspecified; F41.9 Anxiety disorder, unspecified; Z23 Encounter for immunization
CPT/HCPCS: 71010; 71260; 72157; 72158; 74176; 76937; 80048; 80053; 80307; 81001; 82550; 82552; 83605; 83690; 83735; 84484; 84703; 85025; 85610; 85652; 85730; 86140; 86308; 87040; 87077; 87081; 87086; 87186; 87205; 87491; 87591; 87804; 87880; 90686; 90732; 93005; 93306; 96361; 96365; 96375; A9579; J0696; J1885; J2270; J2405; J7030; Q2038; Q9967

== ENCOUNTER 2016-03-21 09:07 | Emergency (ER) | payer SELFPAY ==
[~2016-03-21] VITALS: Ht 165.1 cm; Wt 60.0 kg
[~2016-03-21 09:07] MED LIST changes: -CHLO.12%30 SSP; +LEVA750T PO; -PENI500T PO
[2016-03-21 09:09] VITALS: BP 118/74; PULSE 68; RESP 16; TEMP 97.9; O2SAT 98
[2016-03-21 11:07] LABS: BACTERIA, URINE OCC /hpf; BLOOD, URINE MOD (NEG); COMMENT (UR) CULT NOT INDICATED; CULTURE IF INDICATED CULT NOT INDICATED; GLUCOSE,URINE NEG (NEG); KETONE, URINE NEG (NEG); MUCUS URINE FEW /lpf (OCC); NITRITE,URINE NEG (NEG); SQUAMOUS EPITHELIAL CELL URINE 4 /hpf (0-5); URINE COLOR YELLOW (YELLW/STRAW)
[2016-03-21] MEDS ORDERED: SODIUM CHLOR 0.9% 1000 ML INJ 1,000 ML IV ONE (11:15)
[2016-03-21] MEDS ORDERED: ONDANSETRON HCL 4 MG/2 ML VIAL IV PUSH ONE (11:15)
[2016-03-21] MEDS ORDERED: KETOROLAC TROMETHAMINE 30 MG/ML (IVP) VIAL IV PUSH ONE (11:15)
--- NOTE | 2016-03-21 11:26 | PD ---
HPI Chief Complaint: Complaint Time Seen by Provider: 11:19 Travel History International Travel<30 days: No Contact w/Intl Traveler<30days: No Traveled to known affect area: No History of Present Illness HPI Patient's a 25-year-old female who presented to the emergency for evaluation of back pain, chest pain, nausea. She denies any abdominal pain, diarrhea, shortness of breath, fevers, IV drug use. Patient states that she was discharged recently on Levaquin and this is also making her feel sick. She states that she has the same complaints today that she had on her last emergency room visit, states that she doesn't feel any better than she did a week ago. She denies any significant past medical history. PFSH Past Medical History Medical History: Denies Significant Hx Blood Disorders: No Anxiety: No Depression: No Cancer: No Cardiovascular Problems: No Diminished Hearing: No Endocrine: No Genitourinary: No Immune Disorder: No Musculoskeletal: No Neurologic: No Psychiatric: No Reproductive: Yes (miscarriage (2014)) Respiratory: No Tetanus Vaccination: > 5 Years ?: Not : 1 Para: 0 Miscarriage: 0 : 0 Past Surgical History Surgical History: No Previous Surgery Social History Alcohol Use: No Tobacco Use: No (quit) Substance Use: Yes (marijuana) Allergies-Medications (Allergen,Severity, Reaction): Coded Allergies: Pineapple (Verified Allergy, Severe, 03/21/16) Reported Meds & Prescriptions Reported Meds & Active Scripts Active Levaquin (Levofloxacin) 750 Mg Tab 750 Mg PO DAILY Review of Systems Except as stated in HPI: all other systems reviewed are Neg General / Constitutional: Positive: Chills, No: Fever HENT: Positive: Neck Pain Cardiovascular: Positive: Chest Pain or Discomfort Respiratory: Positive: Cough, Pleuritic Pain, No: Shortness of Breath, Wheezing Gastrointestinal: Positive: Nausea, Vomiting, No: Abdominal Pain Musculoskeletal: Positive: Myalgias Neurologic: Positive: Dizziness Physical Exam Narrative GENERAL: Well developed, well-nourished, alert female. Appears uncomfortable, in no acute distress. SKIN: Warm and dry. HEAD: Atraumatic. Normocephalic. EYES: Pupils equal and round. No scleral icterus. No injection or drainage. ENT: No nasal bleeding or discharge. Mucous membranes pink and moist. NECK: Trachea midline. No JVD. CARDIOVASCULAR: Regular rate and rhythm. No murmur appreciated. RESPIRATORY: No accessory muscle use. Clear to auscultation. Breath sounds diminished in bases. GASTROINTESTINAL: Abdomen soft, non-tender, nondistended. Hepatic and splenic margins not palpable. MUSCULOSKELETAL: No obvious deformities. No clubbing. No cyanosis. No edema. Tenderness to palpation in paraspinal musculature in the thoracic region on the right just inferior to the scapula. No spinal tenderness noted in the cervical , thoracic, or lumbar spine. NEUROLOGICAL: Awake and alert. No obvious cranial nerve deficits. Motor grossly within normal limits. Normal speech. PSYCHIATRIC: Appropriate mood and affect; insight and judgment normal. Data Data Last Documented VS Vital Signs Date Time Temp Pulse Resp B/P Pulse Ox O2 Delivery O2 Flow Rate FiO2 03/21/16 15:16 54 16 114/54 98 Room Air 03/21/16 09:09 97.9 Orders Urinalysis - C+S If Indicated (03/21/16 10:05) Ketorolac Inj (Toradol Inj) (03/21/16 11:15) Ondansetron Inj (Zofran Inj) (03/21/16 11:15) Sodium Chlor 0.9% 1000 Ml Inj (Ns 1000 M (03/21/16 11:15) Complete Blood Count With Diff (03/21/16 11:06) Basic Metabolic Panel (Bmp) (03/21/16 11:06) Iv Access Insert/Monitor (03/21/16 11:08) D-Dimer (03/21/16 11:15) Tramadol (Ultram) (03/21/16 11:45) Chest, Single Ap (03/21/16 ) Ventilation & Perfusion Scan (03/21/16 14:14) Labs Laboratory Tests Test 03/21/16 03/21/16 11:00 11:25 Urine Color YELLOW Urine Turbidity HAZY Urine pH 6.0 Urine Specific [place] 1.017 Urine Protein NEG mg/dL Urine Glucose (UA) NEG mg/dL Urine Ketones NEG mg/dL Urine Occult Blood MOD Urine Nitrite NEG Urine Bilirubin NEG Urine Urobilinogen LESS THAN 2.0 MG/DL Urine Leukocyte Esterase MOD Urine RBC 6 /hpf Urine WBC 6 /hpf Urine Squamous Epithelial 4 /hpf Cells Urine Bacteria OCC /hpf Urine Mucus FEW /lpf Microscopic Urinalysis Comment CULT NOT INDICATED White Blood Count 7.2 TH/MM3 Red Blood Count 4.38 MIL/MM3 Hemoglobin 11.8 GM/DL Hematocrit 34.9 % Mean Corpuscular Volume 79.6 FL Mean Corpuscular Hemoglobin 26.9 PG Mean Corpuscular Hemoglobin 33.8 % Concent Red Cell Distribution Width 13.9 % Platelet Count 275 TH/MM3 Mean Platelet Volume 8.6 FL Neutrophils (%) (Auto) 49.1 % Lymphocytes (%) (Auto) 41.4 % Monocytes (%) (Auto) 7.4 % Eosinophils (%) (Auto) 1.3 % Basophils (%) (Auto) 0.8 % Neutrophils # (Auto) 3.5 TH/MM3 Lymphocytes # (Auto) 3.0 TH/MM3 Monocytes # (Auto) 0.5 TH/MM3 Eosinophils # (Auto) 0.1 TH/MM3 Basophils # (Auto) 0.1 TH/MM3 CBC Comment DIFF FINAL Differential Comment D-Dimer Quantitative (PE/DVT) 1.11 MG/L FEU Sodium Level 141 MEQ/L Potassium Level 4.0 MEQ/L Chloride Level 109 MEQ/L Carbon Dioxide Level 24.6 MEQ/L Anion Gap 7 MEQ/L Blood Urea Nitrogen 5 MG/DL Creatinine 0.80 MG/DL Estimat Glomerular Filtration 106 ML/MIN Rate Random Glucose 89 MG/DL Calcium Level 8.9 MG/DL [facility] Medical Decision Making Medical Screen Exam Complete: Yes Emergency Medical Condition: Yes Medical Record Reviewed: Yes Interpretation(s) Laboratory Tests Test 03/21/16 03/21/16 11:00 11:25 Urine Color YELLOW Urine Turbidity HAZY Urine pH 6.0 Urine Specific [place] 1.017 Urine Protein NEG mg/dL Urine Glucose (UA) NEG mg/dL Urine Ketones NEG mg/dL Urine Occult Blood MOD Urine Nitrite NEG Urine Bilirubin NEG Urine Urobilinogen LESS THAN 2.0 MG/DL Urine Leukocyte Esterase MOD Urine RBC 6 /hpf Urine WBC 6 /hpf Urine Squamous Epithelial 4 /hpf Cells Urine Bacteria OCC /hpf Urine Mucus FEW /lpf Microscopic Urinalysis Comment CULT NOT INDICATED White Blood Count 7.2 TH/MM3 Red Blood Count 4.38 MIL/MM3 Hemoglobin 11.8 GM/DL Hematocrit 34.9 % Mean Corpuscular Volume 79.6 FL Mean Corpuscular Hemoglobin 26.9 PG Mean Corpuscular Hemoglobin 33.8 % Concent Red Cell Distribution Width 13.9 % Platelet Count 275 TH/MM3 Mean Platelet Volume 8.6 FL Neutrophils (%) (Auto) 49.1 % Lymphocytes (%) (Auto) 41.4 % Monocytes (%) (Auto) 7.4 % Eosinophils (%) (Auto) 1.3 % Basophils (%) (Auto) 0.8 % Neutrophils # (Auto) 3.5 TH/MM3 Lymphocytes # (Auto) 3.0 TH/MM3 Monocytes # (Auto) 0.5 TH/MM3 Eosinophils # (Auto) 0.1 TH/MM3 Basophils # (Auto) 0.1 TH/MM3 CBC Comment DIFF FINAL Differential Comment D-Dimer Quantitative (PE/DVT) 1.11 MG/L FEU Sodium Level 141 MEQ/L Potassium Level 4.0 MEQ/L Chloride Level 109 MEQ/L Carbon Dioxide Level 24.6 MEQ/L Anion Gap 7 MEQ/L Blood Urea Nitrogen 5 MG/DL Creatinine 0.80 MG/DL Estimat Glomerular Filtration 106 ML/MIN Rate Random Glucose 89 MG/DL Calcium Level 8.9 MG/DL Vital Signs Date Time Temp Pulse Resp B/P Pulse Ox O2 Delivery O2 Flow Rate FiO2 03/21/16 09:09 97.9 68 16 118/74 98 Room Air Differential Diagnosis Pulmonary embolism versus pleurisy versus costochondritis versus meningitis versus other Narrative Course Patient's 25-year-old female who presents emergency department for evaluation of back pain, chest pain, nausea, inability to tolerate food or fluids. Patient was seen and evaluated in the emergency department on 03/14/16. At that time she met sepsis criteria and was admitted to the hospital. She had extensive imaging including an MRI of the thoracic or lumbar spine which were negative, CT of the chest and abdomen and pelvis which were also negative, a chest x-ray which was negative. An infectious disease consult was obtained, patient was discharged on Levaquin which she states she's not been tolerating. Patient's vital signs are stable, she is afebrile. She appears to be tearful and in pain. Pain is reproducible on palpation to the thoracic spine just inferior to the right scapula. Labs ordered and pending, medications ordered. Patient's d-dimer was elevated at 1.11, VQ scan ordered per my attending physician. CBC is unremarkable, chemistry is unremarkable. Urinalysis shows red blood cells, patient currently has her menstrual cycle. VQ scan shows low probability for pulmonary embolism. Patient is resting comfortably since she came to the emergency department. Patient will be given a prescription for anti-inflammatory medication and a muscle relaxer. She is encouraged to follow-up with her primary doctor, she is encouraged to return to emergency department for any new or worsening symptoms. Patient is stable for discharge Diagnosis Primary Impression: Back pain Qualified Code: M54.6 - Right-sided thoracic back pain, unspecified chronicity Referrals: Primary Care Physician Patient Instructions: Back Pain (ED), General Instructions, Muscle Spasm (ED), Thoracic Back Strain (ED) Additional Instructions: Follow-up with your primary doctor Take medications as directed You may use a heating pad or warm compress to affected area Avoid bed rest, continue range of motion exercises Return to emergency department for any new or worsening symptoms Med/Other Pt SpecificInfo: Prescription(s) given Scripts Cyclobenzaprine (Flexeril)10 Mg Tab10 Mg PO TID PRN (MUSCLE SPASM) 10 Days Ref 0 Prov:Asia Lowe 03/21/16 Ibuprofen 800 Mg [id number] Mg PO Q6HR PRN (PAIN) #40 TAB Ref 0 Prov:Asia Lowe 03/21/16 Disposition: 01 DISCHARGE HOME Condition: Stable Asia Lowe Mar 21, 2016 11:26
[2016-03-21] MEDS ORDERED: traMADol HCL 50 MG TAB PO ONE (11:45)
--- NOTE | 2016-03-21 11:46 | PD ---
Data Data Last Documented VS Vital Signs Date Time Temp Pulse Resp B/P Pulse Ox O2 Delivery O2 Flow Rate FiO2 03/21/16 09:09 97.9 68 16 118/74 98 Room Air Orders Urinalysis - C+S If Indicated (03/21/16 10:05) Ketorolac Inj (Toradol Inj) (03/21/16 11:15) Ondansetron Inj (Zofran Inj) (03/21/16 11:15) Sodium Chlor 0.9% 1000 Ml Inj (Ns 1000 M (03/21/16 11:15) Complete Blood Count With Diff (03/21/16 11:06) Basic Metabolic Panel (Bmp) (03/21/16 11:06) Iv Access Insert/Monitor (03/21/16 11:08) D-Dimer (03/21/16 11:15) Tramadol (Ultram) (03/21/16 11:45) Labs Laboratory Tests Test 03/21/16 11:00 Urine Color YELLOW Urine Turbidity HAZY Urine pH 6.0 Urine Specific [place] 1.017 Urine Protein NEG mg/dL Urine Glucose (UA) NEG mg/dL Urine Ketones NEG mg/dL Urine Occult Blood MOD Urine Nitrite NEG Urine Bilirubin NEG Urine Urobilinogen LESS THAN 2.0 MG/DL Urine Leukocyte Esterase MOD Urine RBC 6 /hpf Urine WBC 6 /hpf Urine Squamous Epithelial 4 /hpf Cells Urine Bacteria OCC /hpf Urine Mucus FEW /lpf Microscopic Urinalysis Comment CULT NOT INDICATED MDM Supervised Visit with KENJI: Yes Narrative Course I, Dr. Lariso, have reviewed the advance practice practioner's documentation and am in agreement, met with the patient face to face, made the diagnosis, and the medical decision making was done by me. *My assessment and Findings: 25-year-old female here with complaint of right sided subscapular pain. This really has been present for the better part of the last 2 weeks. Patient was seen on March 14 and admitted to our hospital with presumptive pyelonephritis. Her urine culture ended up being negative. She had a very extensive workup for possible infectious etiology including CT of the chest abdomen and pelvis, GC and chlamydia, etc. She also had MRI of the thoracic and lumbar spine looking for osteomyelitis, discitis that was negative. Patient was discharged home with Levaquin. States that Levaquin seems to be making her stomach upset, nauseous. She also has persistent right sided subscap pain that is worse with movement, palpation. On exam her pain is very reproducible on the right subscapular region, with point tenderness to palpation. I strong suspicion is that this is musculoskeletal, but she has not had a rule out PE study. She has already had CT of the chest with IV contrast that this was not time for pulmonary embolism. Therefore a d-dimer will be obtained and discharged home if negative with treatment for musculoskeletal etiology. Leyla Larios MD Mar 21, 2016 11:46
[2016-03-21 11:47] LABS: AUTOMATED NEUTROPHIL # 3.5 TH/MM3 (1.8-7.7); BASOPHIL # 0.1 TH/MM3 (0-0.2); BASOPHIL % 0.8 % (0.0-2.0); EOSINOPHIL # 0.1 TH/MM3 (0-0.4); EOSINOPHIL % 1.3 % (0.0-4.0); HEMATOCRIT 34.9 % (35.0-46.0); HEMO FLAGS DIFF FINAL; LYMPH % 41.4 % (9.0-44.0); MEAN CELL VOLUME 79.6 FL (80.0-100.0); MEAN CORPUSCULAR HEMOGLOBIN 26.9 PG (27.0-34.0); MEAN CORPUSCULAR HGB CONC 33.8 % (32.0-36.0); MONO % 7.4 % (0.0-8.0); NEUT % 49.1 % (16.0-70.0); PLATELET COUNT 275 TH/MM3 (150-450); RED BLOOD COUNT 4.38 MIL/MM3 (4.00-5.30); RED CELL DISTRIBUTION WIDTH 13.9 % (11.6-17.2); WHITE BLOOD COUNT 7.2 TH/MM3 (4.0-11.0)
[2016-03-21 12:01] LABS: BICARBONATE 24.6 MEQ/L (21.0-32.0)
--- NOTE | 2016-03-21 12:52 | RADRPT ---
EXAM DATE/TIME: 03/21/2016 12:21 [facility] COMPARISON: CHEST SINGLE AP, March 16, 2016, 2:02. INDICATIONS : Nausea, vomitting, and chest pains MEDICAL HISTORY : None. SURGICAL HISTORY : None. ENCOUNTER: Initial ACUITY: 3 days PAIN SCORE: 7/10 LOCATION: Bilateral chest FINDINGS: A single view of the chest demonstrates the lungs to be symmetrically aerated without evidence of mas s, infiltrate or effusion. The cardiomediastinal contours are unremarkable. Osseous structures are intact. CONCLUSION: No acute disease. Catarino Tee MD FACR on March 21, 2016 at 12:50 Board Certified Radiologist. This report was verified electronically.
[2016-03-21 15:16] VITALS: BP 114/54; PULSE 54; RESP 16; O2SAT 98
--- NOTE | 2016-03-21 16:47 | RADRPT ---
EXAM DATE/TIME: 03/21/2016 15:52 [facility] COMPARISON: CT THORAX W CONTRAST, March 16, 2016, 15:04. CHEST SINGLE AP, March 21, 2016, 12:21. INDICATIONS : Embolus. Chest pain. DOSE: 8.2 mCi Tc99m MAA IV 0.69 mCi Tc99m DTPA aerosol MEDICAL HISTORY : None SURGICAL HISTORY : None. ENCOUNTER: Initial ACUITY: 3 days PAIN SCALE: 3/10 LOCATION: Bilateral chest TECHNIQUE: Following five minutes of tidal breathing of DTPA aerosol, planar images of the lungs were performed in eight projections. The patient was then injected with MAA, and eight-view perfusion scan was perf ormed. FINDINGS: There is a homogeneous pattern of aerosol delivery to the periphery of both lungs. No focal ventilat ory defects are seen. The perfusion lung scan demonstrates a homogenous pattern of uptake in both lungs. No segmental or s ubsegmental defects are seen. CONCLUSION: Normal examination. Low probability of pulmonary embolism Rome Jeronimo MD on March 21, 2016 at 16:44 Board Certified Radiologist. This report was verified electronically.
[2016-03-21] MEDS ORDERED: IBUP800T23 PO (17:23)
[2016-03-21] MEDS ORDERED: CYCL1TAB29 PO (17:23)
[2016-03-21 17:45] VITALS: RESP 20
== END 2016-03-21 18:27 | disposition home or self-care (01) ==
LOC: NEPE 09:07
DX: M54.6 Pain in thoracic spine (principal); R07.9 Chest pain, unspecified; R11.0 Nausea; Z87.891 Personal history of nicotine dependence; Z87.42 Personal history of other diseases of the female genital tract
CPT/HCPCS: 71010; 78582; 80048; 81001; 85025; 85379; 96361; 96374; 96375; 99285; A9540; A9567; J1885; J2405; J7030

== ENCOUNTER 2016-04-16 00:46 | Emergency (ER) | payer SELFPAY ==
[~2016-04-16] VITALS: Ht 165.1 cm; Wt 60.0 kg
[~2016-04-16 00:46] MED LIST changes: +CYCL1TAB29 PO; +IBUP800T23 PO
[2016-04-16 00:48] VITALS: BP 121/74; PULSE 98; RESP 16; TEMP 99.2; O2SAT 97
[2016-04-16 01:01] VITALS: TEMP 101
[2016-04-16] MEDS ORDERED: OSEL75 PO (01:42)
--- NOTE | 2016-04-16 01:44 | PD ---
HPI Chief Complaint: Cold / Flu Symptoms Time Seen by Provider: 01:03 Travel History International Travel<30 days: No Contact w/Intl Traveler<30days: No Traveled to known affect area: No History of Present Illness HPI 25 year old female presents to ED complains of total body ache, cough, fever, chills, night sweat, nausea and vomiting. Symptoms started suddenly about 2 days ago. She reports to take NyQuil and Tylenol which minimally relieved her symptoms. She states that she is feeling worse and decided to come to the ED. She denies any recent travel, animal exposures or exposure to anyone with similar symptoms. She denies any palpitation, SOB, diarrhea or urinary symptoms. PFSH Past Medical History Medical History: Denies Significant Hx Blood Disorders: No Anxiety: No Depression: No Cancer: No Cardiovascular Problems: No Diminished Hearing: No Endocrine: No Genitourinary: No Immune Disorder: No Musculoskeletal: No Neurologic: No Psychiatric: No Reproductive: Yes (miscarriage (2014)) Respiratory: No Tetanus Vaccination: Unknown Influenza Vaccination: Yes (2016) ?: Not LMP: 03/23/16 : 1 Para: 0 Miscarriage: 2 : 0 Past Surgical History Surgical History: No Previous Surgery Social History Alcohol Use: No Tobacco Use: Yes Substance Use: No Allergies-Medications (Allergen,Severity, Reaction): Coded Allergies: Pineapple (Verified Allergy, Severe, 03/21/16) Reported Meds & Prescriptions Reported Meds & Active Scripts Active Tamiflu (Oseltamivir Phosphate) 75 Mg Cap 75 Mg PO BID 7 Days Review of Systems Except as stated in HPI: all other systems reviewed are Neg General / Constitutional: Positive: Fever, Chills Eyes: No: Diploplia, Blurred Vision, Photophobia HENT: No: Headaches, Rhinorrhea Cardiovascular: No: Chest Pain or Discomfort, Dyspnea on exertion Respiratory: Positive: Cough, Night Sweats, No: Shortness of Breath, Wheezing Gastrointestinal: Positive: Nausea, Vomiting, Loss of Appetite, No: Diarrhea, Abdominal Pain Genitourinary: No: Urgency, Frequency, Dysuria Musculoskeletal: Positive: Myalgias, Cramping, Pain Skin: No Rash, No Itching Neurologic: No: Weakness, Headache, Incontinence Physical Exam Narrative GENERAL: 25 y/o female, well-developed, well-nourished, alert and oriented, comfortably lying in bed in no acute distress SKIN: Warm and dry. HEAD: Atraumatic. Normocephalic. EYES: Pupils equal and round. No scleral icterus. No injection or drainage. ENT: No nasal bleeding or discharge. Mucous membranes pink and moist. NECK: Trachea midline. No JVD. CARDIOVASCULAR: Regular rate and rhythm. RESPIRATORY: No accessory muscle use. Clear to auscultation. Breath sounds equal bilaterally. GASTROINTESTINAL: Abdomen soft, non-tender, nondistended. Hepatic and splenic margins not palpable. MUSCULOSKELETAL: Extremities without clubbing, cyanosis, or edema. No obvious deformities. NEUROLOGICAL: Awake and alert. No obvious cranial nerve deficits. Motor grossly within normal limits. Five out of 5 muscle strength in the arms and legs. Normal speech. PSYCHIATRIC: Appropriate mood and affect; insight and judgment normal. Data Data Last Documented VS Vital Signs Date Time Temp Pulse Resp B/P Pulse Ox O2 Delivery O2 Flow Rate FiO2 04/16/16 01:01 101.0 04/16/16 00:59 18 04/16/16 00:48 98 121/74 97 Room Air Orders Influenzae A/B Antigen (04/16/16 01:03) Oseltamivir (Tamiflu) (04/16/16 01:45) Ibuprofen (Motrin) (04/16/16 01:45) MDM Medical Decision Making Medical Screen Exam Complete: Yes Emergency Medical Condition: Yes Differential Diagnosis 1. Infuenza 2. viral syndrome 3. URI Narrative Course Patient has influenza. Tamiflu ordered. The patient is resting comfortably and feels better, is alert and in no distress. The patients results and examination findings were discussed. The repeat examination is unremarkable and benign. The history, exam, diagnostic testing, and current condition do not suggest any significant pathology to warrant further testing, continued ED treatment, admission, or surgical evaluation at this point. The vital signs have been stable. The patient does not have uncontrollable pain, intractable vomiting, or other significant symptoms. The patient's condition is stable and appropriate for discharge. The patient will pursue further outpatient evaluation with a primary care physician or other designated or consulting physician as indicated in the discharge instructions. The patient expressed understanding and was agreeable with this plan. Diagnosis Primary Impression: Influenza Referrals: Primary Care Physician 2 days Additional Instructions: You have a choice when it comes to health care, and we are glad that you chose [facility]. Hopefully, we have met your expectations on today's visit. You are welcome to return to [facility] at any time, as we are committed to meeting the health care needs of our community. Med/Other Pt SpecificInfo: Prescription(s) given Scripts Oseltamivir (Tamiflu)75 Mg Cap75 Mg PO BID 7 Days Ref 0 Prov:Charles Wallace MD 04/16/16 Disposition: 01 DISCHARGE HOME Condition: Stable Charles Wallace MD Apr 16, 2016 01:44
[2016-04-16] MEDS ORDERED: OSELTAMIVIR PHOSPHATE 75 MG CAP PO ONE (01:45)
[2016-04-16] MEDS ORDERED: IBUPROFEN 600 MG TAB PO ONE (01:45)
== END 2016-04-16 02:17 | disposition home or self-care (01) ==
LOC: NEPE 00:46
DX: J11.1 Influenza due to unidentified influenza virus with other respiratory manifestations (principal); M79.1 Myalgia; R50.9 Fever, unspecified; R11.2 Nausea with vomiting, unspecified; Z72.0 Tobacco use
CPT/HCPCS: 87804; 99283

== ENCOUNTER 2016-12-13 10:01 | Emergency (ER) | payer SELFPAY ==
[~2016-12-13 10:01] MED LIST changes: -CYCL1TAB29 PO; -IBUP800T23 PO; -LEVA750T PO; +OSEL75 PO
[2016-12-13 10:02] VITALS: BP 122/64; PULSE 98; RESP 16; TEMP 98.4; O2SAT 99
[2016-12-13] MEDS ORDERED: ACETAMINOPHEN 325 MG TAB PO ONE (10:30)
--- NOTE | 2016-12-13 10:45 | PD ---
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 Patient reports being approximately 4-5 weeks . She had positive urine test at home. She has not yet been able to follow-up with an security risk analyst. She is a G2, P0 with one previous miscarriage. She is unsure of her blood type. Patient reports yellow vaginal discharge. She denies any risk of STDs reporting one sexual partner in the past year and a half. Patient has not taken anything at home for the pain. She denies any vaginal bleeding. No fevers or chills. She has no chronic medical problems and takes no prescribed medications. PFSH Past Medical History Blood Disorders: No Anxiety: No Depression: No Cancer: No Cardiovascular Problems: No Diminished Hearing: No Endocrine: No Gastrointestinal Disorders: No Genitourinary: No Immune Disorder: No Implanted Vascular Access Dvce: No Musculoskeletal: No Neurologic: No Psychiatric: No Reproductive: Yes (miscarriage (2014)) Respiratory: No Immunizations Current: Yes ?: Unknown LMP: 11/27/16 : 1 Para: 0 Miscarriage: 2 : 0 Past Surgical History Other Surgery: No Social History Alcohol Use: No Tobacco Use: Yes Substance Use: No Allergies-Medications (Allergen,Severity, Reaction): Coded Allergies: pineapple (Unverified Allergy, Severe, 10/27/16) Reported Meds & Prescriptions Reported Meds & Active Scripts Active Review of Systems Except as stated in HPI: all other systems reviewed are Neg Physical Exam Narrative GENERAL: Well-nourished, well-developed female patient, ambulatory. Afebrile. SKIN: Focused skin assessment warm/dry. HEAD: Normocephalic. Atraumatic. EYES: No scleral icterus. No injection or drainage. NECK: Supple, trachea midline. No JVD or lymphadenopathy. CARDIOVASCULAR: Regular rate and rhythm without murmurs, gallops, or rubs. RESPIRATORY: Breath sounds equal bilaterally. No accessory muscle use. Lung sounds are clear to auscultation. GASTROINTESTINAL: Abdomen soft, non-tender, nondistended. MUSCULOSKELETAL: No cyanosis, or edema. BACK: Nontender without obvious deformity. No CVA tenderness. GENITOURINARY: Normal external genitalia without lesions or erythema. Vaginal vault without blood or drainage. Cervical os was closed without drainage. No cervical motion tenderness. Uterus nontender and nonenlarged. Bilateral adnexa nontender without masses. This exam was done with RN at bedside. Data Data Last Documented VS Vital Signs Date Time Temp Pulse Resp B/P (MAP) Pulse Ox O2 Delivery O2 Flow Rate FiO2 12/13/16 10:02 98.4 98 16 122/64 (83) 99 Orders Orders Beta Hcg (Quant/Titer) (12/13/16 10:19) Complete Blood Count With Diff (12/13/16 10:19) Basic Metabolic Panel (Bmp) (12/13/16 10:19) Gc And Chlamydia Pcr (12/13/16 10:19) Us Pelvis (Ques Preg/Ectopic) (12/13/16 ) Wet Prep Profile (12/13/16 10:19) Urinalysis - C+S If Indicated (12/13/16 10:19) Ed Urine Pregnancytest Poc (12/13/16 10:19) Acetaminophen (Tylenol) (12/13/16 10:30) Urine Culture (12/13/16 10:24) Labs Laboratory Tests Test 12/13/16 10:24 12/13/16 10:34 Urine Color YELLOW Urine Turbidity HAZY Urine pH 6.5 Urine Specific [place] 1.025 Urine Protein TRACE mg/dL Urine Glucose (UA) NEG mg/dL Urine Ketones NEG mg/dL Urine Occult Blood TRACE Urine Nitrite NEG Urine Bilirubin NEG Urine Urobilinogen LESS THAN 2.0 MG/DL Urine Leukocyte Esterase LARGE Urine RBC 10 /hpf Urine WBC 11 /hpf Urine Squamous Epithelial Cells 5 /hpf Urine Bacteria MOD /hpf Urine Mucus FEW /lpf Urine Yeast (Budding) FEW Microscopic Urinalysis Comment CULTURE INDICATED White Blood Count 5.8 TH/MM3 Red Blood Count 4.71 MIL/MM3 Hemoglobin 13.1 GM/DL Hematocrit 40.0 % Mean Corpuscular Volume 85.1 FL Mean Corpuscular Hemoglobin 27.8 PG Mean Corpuscular Hemoglobin Concent 32.7 % Red Cell Distribution Width 14.1 % Platelet Count 213 TH/MM3 Mean Platelet Volume 8.8 FL Neutrophils (%) (Auto) 48.3 % Lymphocytes (%) (Auto) 43.3 % Monocytes (%) (Auto) 7.2 % Eosinophils (%) (Auto) 0.6 % Basophils (%) (Auto) 0.6 % Neutrophils # (Auto) 2.8 TH/MM3 Lymphocytes # (Auto) 2.5 TH/MM3 Monocytes # (Auto) 0.4 TH/MM3 Eosinophils # (Auto) 0.0 TH/MM3 Basophils # (Auto) 0.0 TH/MM3 CBC Comment DIFF FINAL Differential Comment Clue Cells (Wet Prep) PRESENT Vaginal Trichomonas (Wet Prep) NONE SEEN Vaginal Yeast (Wet Prep) NONE SEEN Blood Urea Nitrogen 11 MG/DL Creatinine 0.83 MG/DL Random Glucose 87 MG/DL Calcium Level 8.8 MG/DL Sodium Level 137 MEQ/L Potassium Level 3.7 MEQ/L Chloride Level 107 MEQ/L Carbon Dioxide Level 22.8 MEQ/L Anion Gap 7 MEQ/L Estimat Glomerular Filtration Rate 101 ML/MIN Human Chorionic Gonadotropin, Quant LESS THAN 1 MIU/ML MDM Medical Decision Making Medical Screen Exam Complete: Yes Emergency Medical Condition: Yes Medical Record Reviewed: Yes Interpretation(s) Us - CONCLUSION: Normal transabdominal evaluation of the uterus and ovaries with a corpus luteum seen within the right ovary. The endometrium is thickened but without visualized gestational sac. Differential Diagnosis threatened vs. ectopic vs. UTI vs. ovarian cyst vs. cervicitis Narrative Course 26 year old female presents to the emergency department for pelvic pain during . She reports being 4-5 weeks . UA, urine test are ordered and pending. CBC, BMP, beta hCG, wet prep profile, swab for gonorrhea/ chlamydia are ordered and pending. Ultrasound is ordered and pending. I reviewed previous records, patient's blood type is B-. UA shows large leukocyte esterase, 11 WBC. UPT is positive. CBC is unremarkable. BMP is unremarkable. Beta HCG is less than 1. Wet prep is positive for clue cells. US shows Normal transabdominal evaluation of the uterus and ovaries with a corpus luteum seen within the right ovary. The endometrium is thickened but without visualized gestational sac. I reviewed the urine test which definitely looks positive. However, beta hCG is definitely negative. I suspect that maybe urine sample provided was not actually the patient's due to negative blood beta hCG. Patient reports LMP was 11/27/16. I discussed this with my attending physician, Dr. Shelby, who recommends patient come back in 48 hours for repeat beta hCG level. Patient will be discharged prescription for Diflucan for yeast UTI, Flagyl for bacterial vaginosis. The patient verbalizes agreement and understanding. The patient was discharged in stable condition with instructions, including return instructions and follow up instructions. Diagnosis Primary Impression: Bacterial vaginosis Additional Impression: UTI (urinary tract infection) Qualified Codes: N30.00 - Acute cystitis without hematuria Referrals: Mechanical Development Engineer call for appointment Patient Instructions: Bacterial Vaginosis (ED), General Instructions, Urinary Tract Infection in Women (ED) Additional Instructions: Take Macrobid as directed until gone. Take Flagyl as directed until gone. Do not drink alcohol while on this medication. Take Diflucan. This was a one-time dose. Return in 48 hours for repeat beta hCG level as it was negative today. However , urine test was positive. This is unusual. Follow up with your primary care physician. Return to the emergency department for any acute worsening of symptoms. Med/Other Pt SpecificInfo: Prescription(s) given Scripts Fluconazole (Diflucan) 150 Mg Tab 150 MG PO ONCE for Infection, #1 TAB 0 Refills Prov: Shanda Herring 12/13/16 Metronidazole (Flagyl) 500 Mg Tab 500 MG PO BID for Infection for 7 Days, #14 TAB 0 Refills Prov: Shanda Herring 12/13/16 Nitrofurantoin Monohydrate Macrocrystals (Macrobid) 100 Mg Capsule 100 MG PO BID for Infection for 7 Days, #14 CAP 0 Refills Prov: Shanda Herring 12/13/16 Disposition: 01 DISCHARGE HOME Condition: Stable Shanda Herring Dec 13, 2016 10:45
[2016-12-13 10:59] LABS: AUTOMATED NEUTROPHIL # 2.8 TH/MM3 (1.8-7.7); BASOPHIL % 0.6 % (0.0-2.0); EOSINOPHIL % 0.6 % (0.0-4.0); HEMO FLAGS DIFF FINAL; LYMPH % 43.3 % (9.0-44.0); LYMPHOCYTE # 2.5 TH/MM3 (1.0-4.8); MEAN CELL VOLUME 85.1 FL (80.0-100.0); MEAN CORPUSCULAR HEMOGLOBIN 27.8 PG (27.0-34.0); MEAN CORPUSCULAR HGB CONC 32.7 % (32.0-36.0); MONO % 7.2 % (0.0-8.0); NEUT % 48.3 % (16.0-70.0); PLATELET COUNT 213 TH/MM3 (150-450); RED BLOOD COUNT 4.71 MIL/MM3 (4.00-5.30); RED CELL DISTRIBUTION WIDTH 14.1 % (11.6-17.2); WHITE BLOOD COUNT 5.8 TH/MM3 (4.0-11.0)
[2016-12-13 11:00] LABS: BACTERIA, URINE MOD /hpf; BLOOD, URINE TRACE (NEG); COMMENT (UR) CULTURE INDICATED; CULTURE IF INDICATED CULTURE INDICATED; GLUCOSE,URINE NEG (NEG); KETONE, URINE NEG (NEG); MUCUS URINE FEW /lpf (OCC); NITRITE,URINE NEG (NEG); PH, URINE 6.5 (5.0-8.5); SQUAMOUS EPITHELIAL CELL URINE 5 /hpf (0-5); URINE COLOR YELLOW (YELLW/STRAW)
--- NOTE | 2016-12-13 11:11 | RADRPT ---
EXAM DATE/TIME: 12/13/2016 10:29 [facility] COMPARISON: CT ABDOMEN & PELVIS W/O CONTRAST, March 14, 2016, 19:00. INDICATIONS : Pelvic pain. Patient refused transvaginal exam. LAB(S): Beta-hCG: MEDICAL HISTORY : Neck pain. Miscarriage. SURGICAL HISTORY : None. ENCOUNTER: Initial ACUITY: 1 day PAIN SCORE: 5/10 LOCATION: Bilateral pelvis MEASUREMENTS: UTERUS: 9.1 x 5.3 x 4.1 cm ENDOMETRIAL STRIPE: 10 mm RIGHT OVARY: 3.9 x 3.3 x 3.6 cm LEFT OVARY: 3.5 x 2.0 x 2.1 cm FREE FLUID: No FINDINGS: UTERUS: The myometrium has homogeneous echotexture without mass. The endometrium is normal in appearance wit hout evidence of a gestational sac on the transabdominal exam. RIGHT OVARY: There is a dominant follicle identified within the right ovary consistent with a corpus luteum. This is consistent with the patient's LMP of November 27, 2016. LEFT OVARY: Ovary contains no mass or significant cystic lesion. MISCELLANEOUS: No free fluid. CONCLUSION: Normal transabdominal evaluation of the uterus and ovaries with a corpus luteum seen within the right ovary. The endometrium is thickened but without visualized gestational sac. Radha Butler MD on December 13, 2016 at 11:06 Board Certified Radiologist. This report was verified electronically.
[2016-12-13 11:24] LABS: ANION GAP 7 MEQ/L (5-15); BICARBONATE 22.8 MEQ/L (21.0-32.0); BLOOD UREA NITROGEN 11 MG/DL (7-18); CHLORIDE 107 MEQ/L (98-107); GLOMERULAR FILTRATION RATE 101 ML/MIN (>89); POTASSIUM 3.7 MEQ/L (3.5-5.1); SODIUM (NA) 137 MEQ/L (136-145)
[2016-12-13 11:28] LABS: BETA HCG QUANT LESS THAN 1 MIU/ML (0-5)
[2016-12-13] MEDS ORDERED: DIFL150T PO (11:46)
[2016-12-13] MEDS ORDERED: MACR100C2 PO (11:46)
[2016-12-13] MEDS ORDERED: METR-1 PO (11:46)
[2016-12-13 12:35] LABS: CHLAMYDIA PCR NOT DETECTED (NOT DETECT); NEISSERIA PCR NOT DETECTED (NOT DETECT)
== END 2016-12-13 11:53 | disposition home or self-care (01) ==
LOC: NEPD 10:01
DX: N76.0 Acute vaginitis (principal); N30.00 Acute cystitis without hematuria; B95.62 Methicillin resistant Staphylococcus aureus infection as the cause of diseases classified elsewhere; B95.2 Enterococcus as the cause of diseases classified elsewhere
CPT/HCPCS: 76700; 80048; 81001; 84702; 84703; 85025; 86403; 87077; 87086; 87186; 87210; 87491; 87591; 99284

== ENCOUNTER 2017-01-12 15:40 | Inpatient (IN) | payer SELFPAY ==
[~2017-01-12] VITALS: Ht 162.6 cm; Wt 55.0 kg
[~2017-01-12 15:40] MED LIST changes: +DIFL150T PO; +MACR100C2 PO; +METR-1 PO; -OSEL75 PO
[2017-01-12 15:41] VITALS: BP 99/64; PULSE 106; RESP 20; TEMP 99.5; O2SAT 97
--- NOTE | 2017-01-12 16:09 | PD ---
Physical Exam Date Seen by Provider: Jan 12, 2017 Time Seen by Provider: 16:09 Narrative 26 year old black female presents to emergency Department with complaints of pelvic pain with radiation to the back since last evening. Pain is severe. No vaginal bleeding. Positive nausea vomiting. No vaginal discharge or abnormal bleeding. Last menstrual 8 days ago. Patient admits to having subjective fever and chills. Patient has a lot of pressure and burning sensation with urination. Symptoms are severe. She states that she cannot stand up or sit because of pain. Symptoms are better with bending over Vital signs reviewed. Pt waiting for bed placement. Data Data Last Documented VS Vital Signs Date Time Temp Pulse Resp B/P (MAP) Pulse Ox O2 Delivery O2 Flow Rate FiO2 01/12/17 18:57 99.3 96 18 98/63 (75) 98 Room Air Orders Orders Complete Blood Count With Diff (01/12/17 16:12) Comprehensive Metabolic Panel (01/12/17 16:12) Urinalysis - C+S If Indicated (01/12/17 16:12) Ed Urine Pregnancytest Poc (01/12/17 16:12) Lactic Acid (01/12/17 16:12) Urine Culture (01/12/17 16:22) Lactic Acid Sepsis Protocol (01/12/17 16:46) Blood Culture (01/12/17 16:46) Gentamicin Inj (Gentamicin Inj) (01/12/17 16:46) Sodium Chlor 0.9% 1000 Ml Inj (Ns 1000 M (01/12/17 17:00) Morphine Inj (Morphine Inj) (01/12/17 17:00) Ondansetron Inj (Zofran Inj) (01/12/17 17:00) Acetaminophen (Tylenol) (01/12/17 17:45) Ct Abd/Pel W Iv Contrast(Rout) (01/12/17 ) Iohexol 350 Inj (Omnipaque 350 Inj) (01/12/17 18:48) Hydromorphone Pf Inj (Dilaudid Pf Inj) (01/12/17 20:00) Gc And Chlamydia Pcr (01/12/17 20:00) Wet Prep Profile (01/12/17 20:00) Admit Order (Ed Use Only) (01/12/17 ) Vital Signs (Adult) Q4H (01/12/17 20:02) Notify Dr: Other (01/12/17 20:02) Activity Oob Ad Aimee (01/12/17 20:02) Beta Hcg (Quant/Titer) (01/12/17 16:22) Labs Laboratory Tests Test 01/12/17 16:22 01/12/17 17:00 01/12/17 19:56 White Blood Count 20.3 TH/MM3 Red Blood Count 4.65 MIL/MM3 Hemoglobin 13.1 GM/DL Hematocrit 39.3 % Mean Corpuscular Volume 84.5 FL Mean Corpuscular Hemoglobin 28.2 PG Mean Corpuscular Hemoglobin Concent 33.4 % Red Cell Distribution Width 13.7 % Platelet Count 187 TH/MM3 Mean Platelet Volume 8.3 FL Neutrophils (%) (Auto) 88.0 % Lymphocytes (%) (Auto) 6.9 % Monocytes (%) (Auto) 4.8 % Eosinophils (%) (Auto) 0.0 % Basophils (%) (Auto) 0.3 % Neutrophils # (Auto) 17.9 TH/MM3 Lymphocytes # (Auto) 1.4 TH/MM3 Monocytes # (Auto) 1.0 TH/MM3 Eosinophils # (Auto) 0.0 TH/MM3 Basophils # (Auto) 0.1 TH/MM3 CBC Comment DIFF FINAL Differential Comment Urine Color YELLOW Urine Turbidity HAZY Urine pH 7.5 Urine Specific [place] 1.038 Urine Protein 100 mg/dL Urine Glucose (UA) NEG mg/dL Urine Ketones 150 mg/dL Urine Occult Blood NEG Urine Nitrite NEG Urine Bilirubin NEG Urine Urobilinogen 4.0 MG/DL Urine Leukocyte Esterase MOD Urine RBC 6 /hpf Urine WBC 28 /hpf Urine Squamous Epithelial Cells 34 /hpf Urine Bacteria OCC /hpf Urine Mucus MANY /lpf Microscopic Urinalysis Comment CULTURE INDICATED Blood Urea Nitrogen 9 MG/DL Creatinine 0.83 MG/DL Random Glucose 103 MG/DL Total Protein 8.0 GM/DL Albumin 3.6 GM/DL Calcium Level 8.9 MG/DL Alkaline Phosphatase 55 U/L Aspartate Amino Transf (AST/SGOT) 14 U/L Alanine Aminotransferase (ALT/SGPT) 16 U/L Total Bilirubin 0.4 MG/DL Sodium Level 136 MEQ/L Potassium Level 3.5 MEQ/L Chloride Level 105 MEQ/L Carbon Dioxide Level 23.6 MEQ/L Anion Gap 7 MEQ/L Estimat Glomerular Filtration Rate 101 ML/MIN Lactic Acid Level 1.4 mmol/L 1.2 mmol/L Human Chorionic Gonadotropin, Quant LESS THAN 1 MIU/ML Urine Opiates Screen NEG Urine Barbiturates Screen NEG Urine Amphetamines Screen NEG Urine Benzodiazepines Screen NEG Urine Cocaine Screen NEG Urine Cannabinoids Screen POS Clue Cells (Wet Prep) NONE SEEN Vaginal Trichomonas (Wet Prep) NONE SEEN Vaginal Yeast (Wet Prep) NONE SEEN Chlamydia trachomatis DNA (PCR) NOT DETECTED Neisseria gonorrhoeae DNA (PCR) NOT DETECTED MDM Medical Record Reviewed: No Supervised Visit with KENJI: Hugo Rodney Jan 12, 2017 16:09
[2017-01-12 16:37] LABS: AUTOMATED NEUTROPHIL # 17.9 TH/MM3 (1.8-7.7); BASOPHIL # 0.1 TH/MM3 (0-0.2); BASOPHIL % 0.3 % (0.0-2.0); HEMATOCRIT 39.3 % (35.0-46.0); HEMOGLOBIN 13.1 GM/DL (11.6-15.3); LYMPH % 6.9 % (9.0-44.0); LYMPHOCYTE # 1.4 TH/MM3 (1.0-4.8); MEAN CELL VOLUME 84.5 FL (80.0-100.0); MEAN CORPUSCULAR HEMOGLOBIN 28.2 PG (27.0-34.0); MEAN CORPUSCULAR HGB CONC 33.4 % (32.0-36.0); MEAN PLATELET VOLUME 8.3 FL (7.0-11.0); MONO % 4.8 % (0.0-8.0); PLATELET COUNT 187 TH/MM3 (150-450); RED BLOOD COUNT 4.65 MIL/MM3 (4.00-5.30); RED CELL DISTRIBUTION WIDTH 13.7 % (11.6-17.2); WHITE BLOOD COUNT 20.3 TH/MM3 (4.0-11.0)
[2017-01-12] MEDS ORDERED: GENTAMICIN INJ 275 MG in SODIUM CHLORIDE 0.9% INJ 100 ML IV STA (16:46)
[2017-01-12 16:47] LABS: BACTERIA, URINE OCC /hpf; BLOOD, URINE NEG (NEG); GLUCOSE,URINE NEG (NEG); KETONE, URINE 150 mg/dL (NEG); MUCUS URINE MANY /lpf (OCC); NITRITE,URINE NEG (NEG); PH, URINE 7.5 (5.0-8.5); SQUAMOUS EPITHELIAL CELL URINE 34 /hpf (0-5); URINE COLOR YELLOW (YELLW/STRAW); URINE LEUKOCYTE ESTERASE MOD (NEG)
[2017-01-12 16:50] LABS: BILIRUBIN, URINE NEG (NEG)
[2017-01-12 17:00] LABS: ALBUMIN 3.6 GM/DL (3.4-5.0); AST (GOT) 14 U/L (15-37); BICARBONATE 23.6 MEQ/L (21.0-32.0); BLOOD UREA NITROGEN 9 MG/DL (7-18); CALCIUM 8.9 MG/DL (8.5-10.1); CHLORIDE 105 MEQ/L (98-107); CREATININE 0.83 MG/DL (0.50-1.00); GLOMERULAR FILTRATION RATE 101 ML/MIN (>89); GLUCOSE,RANDOM 103 MG/DL (74-106); SODIUM (NA) 136 MEQ/L (136-145)
[2017-01-12] MEDS ORDERED: SODIUM CHLOR 0.9% 1000 ML INJ 1,000 ML IV ONE ×2 (17:00→21:00)
[2017-01-12] MEDS ORDERED: MORPHINE SULFATE 4 MG/ML INJ IV PUSH ONE (17:00)
[2017-01-12] MEDS ORDERED: ONDANSETRON HCL 4 MG/2 ML VIAL IV PUSH ONE (17:00)
[2017-01-12 17:01] LABS: ALT (GPT) 16 U/L (10-53)
[2017-01-12 17:03] LABS: ALKALINE PHOSPHATASE 55 U/L (45-117); TOTAL BILIRUBIN ADULT 0.4 MG/DL (0.2-1.0)
[2017-01-12] MEDS ORDERED: ACETAMINOPHEN 500 MG CPLT PO ONE (17:45)
[2017-01-12] MEDS ORDERED: IOHEXOL 350 MG/ML 10 ML VIAL (for RAD DIAG) IVCONTRAST ONE (18:48)
[2017-01-12 18:57] VITALS: BP 98/63; PULSE 96; RESP 18; TEMP 99.3; O2SAT 98
--- NOTE | 2017-01-12 19:07 | RADRPT ---
EXAM DATE/TIME: 01/12/2017 18:45 [place] COMPARISON: CT ABDOMEN & PELVIS W CONTRAST, April 29, 2015, 13:02. INDICATIONS : Lower quadrant and pelvic pain. IV CONTRAST: 85 cc Omnipaque 350 (iohexol) IV ORAL CONTRAST: No oral contrast ingested. RADIATION DOSE: 6.67 CTDIvol (mGy) MEDICAL HISTORY : None SURGICAL HISTORY : None. ENCOUNTER: Initial ACUITY: 1 day PAIN SCALE: 10/10 LOCATION: lower quadrant abdomen TECHNIQUE: Volumetric scanning of the abdomen and pelvis was performed. Using automated exposure control and ad justment of the mA and/or kV according to patient size, radiation dose was kept as low as reasonably achievable to obtain optimal diagnostic quality images. DICOM format image data is available electro nically for review and comparison. FINDINGS: LOWER LUNGS: The visualized lower lungs are clear. LIVER: Homogeneous density without lesion. There is no dilation of the biliary tree. No calcified gallston es. SPLEEN: Normal size without lesion. PANCREAS: Within normal limits. KIDNEYS: Normal in size and shape. There is no mass, stone or hydronephrosis. ADRENAL GLANDS: Within normal limits. VASCULAR: There is no aortic aneurysm. BOWEL/MESENTERY: No oral contrast was given limiting the sensitivity of the exam. The stomach, small bowel, and colon demonstrate no acute abnormality. There is no free intraperitoneal air or fluid. ABDOMINAL WALL: Within normal limits. RETROPERITONEUM: There is no lymphadenopathy. BLADDER: No wall thickening or mass. REPRODUCTIVE: The uterus is stable in appearance. There are multiple loops of unopacified bowel and cystic areas young rrounding the uterus with apparent small amount of free fluid in the cul-de-sac. The ovaries are not well delineated. INGUINAL: There is no lymphadenopathy or hernia. MUSCULOSKELETAL: Within normal limits for patient age. CONCLUSION: 1. Multiple loops of unopacified bowel and cystic areas surrounding the uterus as well as a small kayce unt of free fluid in the cul-de-sac. The ovaries are not well-visualized. These findings are nonspeci fic and could indicate pelvic inflammatory change or possible cysts in the ovaries. 2. Nonobstructive bowel gas pattern. Justin Sy MD on January 12, 2017 at 19:01 Board Certified Radiologist. This report was verified electronically.
[2017-01-12] MEDS ORDERED: HYDROmorphone HCL PF 0.5 MG/0.5 ML SYRINGE IV PUSH ONE (20:00)
--- NOTE | 2017-01-12 20:12 | PD ---
HPI Chief Complaint: Abdominal Pain Time Seen by Provider: 16:45 Travel History International Travel<30 days: No Contact w/Intl Traveler<30days: No Traveled to known affect area: No History of Present Illness HPI 26-year-old female presents to the emergency room for evaluation of pelvic pain that started yesterday. States prior to yesterday she was in her normal state of health. She has had associated fever, chills, nausea, and vomiting. She denies vaginal discharge, dysuria, urgency, or frequency. She vomited 4 times today. She has not taken anything for symptoms. No chronic medical conditions or daily medications. States she was at the beginning of the month but she lost the baby. PFSH Past Medical History Blood Disorders: No Anxiety: No Depression: No Cancer: No Cardiovascular Problems: No Diminished Hearing: No Endocrine: No Gastrointestinal Disorders: No Genitourinary: No Immune Disorder: No Implanted Vascular Access Dvce: No Musculoskeletal: No Neurologic: No Psychiatric: No Reproductive: Yes (miscarriage (2014)) Respiratory: No Immunizations Current: Yes ?: Unknown : 1 Para: 0 Miscarriage: 2 : 0 Past Surgical History Other Surgery: No Social History Alcohol Use: No Tobacco Use: Yes Substance Use: No Allergies-Medications (Allergen,Severity, Reaction): Coded Allergies: pineapple (Unverified Allergy, Severe, 10/27/16) Reported Meds & Prescriptions Reported Meds & Active Scripts Active Diflucan (Fluconazole) 150 Mg Tab 150 Mg PO ONCE Flagyl (Metronidazole) 500 Mg Tab 500 Mg PO BID 7 Days Macrobid (Nitrofurantoin Monohydrate Macrocrystals) 100 Mg Capsule 100 Mg PO BID 7 Days Review of Systems Except as stated in HPI: all other systems reviewed are Neg Physical Exam Narrative GENERAL: Well-nourished, well-developed female in no acute distress. Afebrile. Ambulatory. Writhing in pain. SKIN: Focused skin assessment warm/dry. HEAD: Normocephalic. EYES: No scleral icterus. No injection or drainage. NECK: Supple, trachea midline. No JVD or lymphadenopathy. CARDIOVASCULAR: Regular rate and rhythm without murmurs, gallops, or rubs. RESPIRATORY: Breath sounds equal bilaterally. No accessory muscle use. GASTROINTESTINAL: Abdomen soft, nondistended. Mild CVA tenderness bilaterally. Extreme tenderness to palpation of the pelvic region. GENITOURINARY: Normal external genitalia without lesions or erythema. Vaginal vault without blood; there is moderate white, purulent drainage. Cervical os was closed without drainage. Moderate cervical motion tenderness. Data Data Last Documented VS Vital Signs Date Time Temp Pulse Resp B/P (MAP) Pulse Ox O2 Delivery O2 Flow Rate FiO2 01/12/17 18:57 99.3 96 18 98/63 (75) 98 Room Air Orders Orders Complete Blood Count With Diff (01/12/17 16:12) Comprehensive Metabolic Panel (01/12/17 16:12) Urinalysis - C+S If Indicated (01/12/17 16:12) Ed Urine Pregnancytest Poc (01/12/17 16:12) Lactic Acid (01/12/17 16:12) Urine Culture (01/12/17 16:22) Lactic Acid Sepsis Protocol (01/12/17 16:46) Blood Culture (01/12/17 16:46) Gentamicin Inj (Gentamicin Inj) (01/12/17 16:46) Sodium Chlor 0.9% 1000 Ml Inj (Ns 1000 M (01/12/17 17:00) Morphine Inj (Morphine Inj) (01/12/17 17:00) Ondansetron Inj (Zofran Inj) (01/12/17 17:00) Acetaminophen (Tylenol) (01/12/17 17:45) Ct Abd/Pel W Iv Contrast(Rout) (01/12/17 ) Iohexol 350 Inj (Omnipaque 350 Inj) (01/12/17 18:48) Hydromorphone Pf Inj (Dilaudid Pf Inj) (01/12/17 20:00) Gc And Chlamydia Pcr (01/12/17 20:00) Wet Prep Profile (01/12/17 20:00) Admit Order (Ed Use Only) (01/12/17 ) Vital Signs (Adult) Q4H (01/12/17 20:02) Notify Dr: Other (01/12/17 20:02) Diet Regular Basic (01/13/17 Breakfast) Activity Oob Ad Aimee (01/12/17 20:02) Labs Laboratory Tests Test 01/12/17 16:22 01/12/17 17:00 01/12/17 19:56 White Blood Count 20.3 TH/MM3 Red Blood Count 4.65 MIL/MM3 Hemoglobin 13.1 GM/DL Hematocrit 39.3 % Mean Corpuscular Volume 84.5 FL Mean Corpuscular Hemoglobin 28.2 PG Mean Corpuscular Hemoglobin Concent 33.4 % Red Cell Distribution Width 13.7 % Platelet Count 187 TH/MM3 Mean Platelet Volume 8.3 FL Neutrophils (%) (Auto) 88.0 % Lymphocytes (%) (Auto) 6.9 % Monocytes (%) (Auto) 4.8 % Eosinophils (%) (Auto) 0.0 % Basophils (%) (Auto) 0.3 % Neutrophils # (Auto) 17.9 TH/MM3 Lymphocytes # (Auto) 1.4 TH/MM3 Monocytes # (Auto) 1.0 TH/MM3 Eosinophils # (Auto) 0.0 TH/MM3 Basophils # (Auto) 0.1 TH/MM3 CBC Comment DIFF FINAL Differential Comment Urine Color YELLOW Urine Turbidity HAZY Urine pH 7.5 Urine Specific [place] 1.038 Urine Protein 100 mg/dL Urine Glucose (UA) NEG mg/dL Urine Ketones 150 mg/dL Urine Occult Blood NEG Urine Nitrite NEG Urine Bilirubin NEG Urine Urobilinogen 4.0 MG/DL Urine Leukocyte Esterase MOD Urine RBC 6 /hpf Urine WBC 28 /hpf Urine Squamous Epithelial Cells 34 /hpf Urine Bacteria OCC /hpf Urine Mucus MANY /lpf Microscopic Urinalysis Comment CULTURE INDICATED Blood Urea Nitrogen 9 MG/DL Creatinine 0.83 MG/DL Random Glucose 103 MG/DL Total Protein 8.0 GM/DL Albumin 3.6 GM/DL Calcium Level 8.9 MG/DL Alkaline Phosphatase 55 U/L Aspartate Amino Transf (AST/SGOT) 14 U/L Alanine Aminotransferase (ALT/SGPT) 16 U/L Total Bilirubin 0.4 MG/DL Sodium Level 136 MEQ/L Potassium Level 3.5 MEQ/L Chloride Level 105 MEQ/L Carbon Dioxide Level 23.6 MEQ/L Anion Gap 7 MEQ/L Estimat Glomerular Filtration Rate 101 ML/MIN Lactic Acid Level 1.4 mmol/L 1.2 mmol/L [facility] Medical Decision Making Medical Screen Exam Complete: Yes Emergency Medical Condition: Yes Medical Record Reviewed: Yes Differential Diagnosis Sepsis, UTI, PID, STD Narrative Course 26-year-old female presents to the emergency room for evaluation of severe pelvic pain that started yesterday. She has associated fever, chills, nausea, and vomiting. Denies any urinary symptoms. Patient meets severe sepsis criteria. IV access established and basic labs obtained. She was given 1 L of fluid and started on gentamicin. Gentamicin was chosen because patient has history of MRSA in her urine. After 1 L of fluid patient's blood pressure improved but then dropped back down. CBC is remarkable for white count of 20.8. CMP is unremarkable. Lactic acid normal. UA shows evidence of urinary tract infection. Because patient's tenderness, a CT was performed which shows possible pelvic inflammatory disease. Pelvic exam is consistent with pelvic inflammatory disease. Patient will be admitted to hospitalist service for severe sepsis caused by urinary tract infection. Sepsis Criteria SIRS Criteria (2 or more): Heart rate over 90, WBC > 97889, < 4000 or > 10% bands Sepsis Criteria (SIRS+source): Infect source susp/known Severe Sepsis (+one): Hypotension Criteria Outcome: Meets severe sepsis criteria Physician Communication Physician Communication I spoke to the resident on-call for Dr. Swenson, Dr. Alex, who agrees to admit this patient to his service. Diagnosis Primary Impression: Pelvic inflammatory disease Additional Impression: urosepsis Admitting Information Admitting Physician Requests: Admit Condition: Stable Kelli Rodriguez Jan 12, 2017 20:12
[2017-01-12 20:13] VITALS: BP 106/59; PULSE 88; RESP 18; O2SAT 100
[2017-01-12] MEDS ORDERED: SODIUM CHLORIDE 0.9% FLUSH 10 ML FLUSH IV FLUSH PRN (20:15)
[2017-01-12 20:37] VITALS: O2SAT 97
[2017-01-12] MEDS: SODIUM CHLORIDE 0.9% FLUSH 10 ML FLUSH IV FLUSH SCH (21:00)
--- NOTE | 2017-01-12 21:02 | HHI.HP ---
HPI Service Family Medicine Primary Care Physician No Primary Care Physician Admission Diagnosis urosepsis Diagnoses: International Travel<30 Days: No Contact w/Intl Traveler<30days: No Known Affected Area: No History of Present Illness Patient is a 26-year-old Female that presents to the ED with1 day hx of severe pelvic pain. Patient stated pelvic pain started yesterday and it was so "excruciating" that it would not let her sleep. Pt describes pain as dull-- aching pain most severe in the suprapubic--lower abd area, rates 8/10. Pt states pain radiates to her entire back and to legs up to ankles. Pt reports voiding worsens the pain. She did not take anything for the pain at home. Pt stated she has not had a BM since yesterday. Pt endorses fever (subjective), chills, vomiting x 5 today (clear, non-bilious, non-bloody) and foul smelling urine that started 1 wk ago. Denies dysuria, vaginal discharge, cough, sob, and cp. Pt stated she had similar sxs1 year ago and was hospitalized and diagnosed with kidney infection. Pt currently does not have health insurance. Of note pt stated that she was treated for MRSA bacteremia on 12/13/16. Pt also stated she was treated for an ectopic on 12/13/[address] Dodd. She was 2 months gestation in that . I was not able to find documentation of [employer]/OB procedure in pt's record. On review of records, on 12/13/16 pt came to the ED with complaints of right pelvic pain and was treated for yeast UTI and bacterial vaginosis with Diflucan and Flagyl, respectively. At that ED visit pt was also found to have a positive test but negative Beta HCG and was advised to return in 48hrs for repeat of Beta HCG level. U/S pelvis done on 12/13/16 showed: normal transabdominal evaluation of the uterus and ovaries with a corpus luteum seen within the right ovary. The endometrium is thickened but without visualized gestational sac. -In the ED pt received fluid bolus x2 for hypotension, zofran 4mg x1, morphine 4mg and tylenol 500mg x1 for pain, 1 dose of gentamicin 275mg (for treatment of UTI due to hx of MRSA in urine as per ED physician). A pelvic exam was done by ED physician (ED physician reported slight cervical motion tenderness with purulent and foul smelling vaginal discharge), wet prep, GC and Chlamydia PCR samples obtained at that time. [employer]/OB Hx 1 spontaneous miscarriage 1 ectopic at 2months gestation -Pap smear- pt stated it was test was done 12/13/16 but unsure of results -sexually active with one male partner, uses condoms inconsistently, last sexually active 4 days ago -Has not had a menstrual period since ectopic on 12/13/16, per pt -No hx of STDs -Never tested for HIV Review of Systems Constitutional: COMPLAINS OF: Fever, Chills Cardiovascular: DENIES: Chest pain, Palpitations Gastrointestinal: COMPLAINS OF: Abdominal pain, Anorexia (1 day hx), DENIES: Bloody stools Genitourinary: DENIES: Abnormal vaginal bleeding, Urinary frequency, Hematuria , Vaginal discharge Other as per hpi, Past Family Social History Past Medical History Anxiety Reported Medications none Allergies: Coded Allergies: pineapple (Unverified Allergy, Severe, 10/27/16) Family History 2 sister,1 brother, father and mother - all healthy grandmother- cataracts Social History Pt is currently unemployed and lives in an apartment complex with a roommate. -Smoke marijuana every day, 7 grams/day throughout the day since age of 15 -Denies any hx of IV drug use -Alcohol- occasionally, last drank encarnacion goose 2 1/2 cups on Wednesday Physical Exam Vital Signs Vital Signs Date Time Temp Pulse Resp B/P (MAP) Pulse Ox O2 Delivery O2 Flow Rate FiO2 01/12/17 20:37 97 21 01/12/17 20:13 88 18 106/59 (75) 100 Room Air 01/12/17 18:57 99.3 96 18 98/63 (75) 98 Room Air 01/12/17 15:41 99.5 106 20 99/64 (76) 97 Room Air Physical Exam GENERAL: This is a well-nourished, well-developed patient, Pt appeared to be in distress due to pain,pt is avoiding laying on her back because it worsens pain. SKIN: No rashes, ecchymoses or lesions. Cool and dry. HEAD: Atraumatic. Normocephalic. No temporal or scalp tenderness. EYES: Pupils equal round and reactive. Extraocular motions intact. No scleral icterus. No injection or drainage. ENT: Nose without bleeding, purulent drainage or septal hematoma. Throat without erythema, tonsillar hypertrophy or exudate. Uvula midline. Airway patent. NECK: Trachea midline. No JVD or lymphadenopathy. Supple, nontender, no meningeal signs. CARDIOVASCULAR: Normal S1 and S2. Regular rate and rhythm without murmurs, gallops, or rubs. RESPIRATORY: CTA BL. Breath sounds equal bilaterally. No wheezes, rales, or rhonchi. GASTROINTESTINAL: Abdomen soft, diffused tenderness to palpation more significant in LLQ, slightly distended, and tympanic to percussion. No hepato- splenomegaly, or palpable masses. Voluntary guarding, no rebound. CVA tenderness BL. MUSCULOSKELETAL: Extremities without clubbing, cyanosis, or edema. No joint tenderness, effusion, or edema noted. Slight calf tenderness. Negative Homans sign bilaterally. NEUROLOGICAL: Awake and alert. Cranial nerves II through XII intact. Motor and sensory grossly within normal limits. Five out of 5 muscle strength in all muscle groups. Normal speech. Laboratory Laboratory Tests Test 01/12/17 16:22 01/12/17 17:00 01/12/17 19:56 White Blood Count 20.3 Red Blood Count 4.65 Hemoglobin 13.1 Hematocrit 39.3 Mean Corpuscular Volume 84.5 Mean Corpuscular Hemoglobin 28.2 Mean Corpuscular Hemoglobin Concent 33.4 Red Cell Distribution Width 13.7 Platelet Count 187 Mean Platelet Volume 8.3 Neutrophils (%) (Auto) 88.0 Lymphocytes (%) (Auto) 6.9 Monocytes (%) (Auto) 4.8 Eosinophils (%) (Auto) 0.0 Basophils (%) (Auto) 0.3 Neutrophils # (Auto) 17.9 Lymphocytes # (Auto) 1.4 Monocytes # (Auto) 1.0 Eosinophils # (Auto) 0.0 Basophils # (Auto) 0.1 CBC Comment DIFF FINAL Differential Comment Urine Color YELLOW Urine Turbidity HAZY Urine pH 7.5 Urine Specific [place] 1.038 Urine Protein 100 Urine Glucose (UA) NEG Urine Ketones 150 Urine Occult Blood NEG Urine Nitrite NEG Urine Bilirubin NEG Urine Urobilinogen 4.0 Urine Leukocyte Esterase MOD Urine RBC 6 Urine WBC 28 Urine Squamous Epithelial Cells 34 Urine Bacteria OCC Urine Mucus MANY Microscopic Urinalysis Comment CULTURE INDICATED Blood Urea Nitrogen 9 Creatinine 0.83 Random Glucose 103 Total Protein 8.0 Albumin 3.6 Calcium Level 8.9 Alkaline Phosphatase 55 Aspartate Amino Transf (AST/SGOT) 14 Alanine Aminotransferase (ALT/SGPT) 16 Total Bilirubin 0.4 Sodium Level 136 Potassium Level 3.5 Chloride Level 105 Carbon Dioxide Level 23.6 Anion Gap 7 Estimat Glomerular Filtration Rate 101 Lactic Acid Level 1.4 1.2 Date/Time Source Procedure Growth Status 01/12/17 17:05 Blood Peripheral Aerobic Blood Culture Pending Received 01/12/17 17:05 Blood Peripheral Anaerobic Blood Culture Pending Received 01/12/17 16:22 Urine Clean Catch Urine Culture Pending Received Result Diagram: 01/12/17 1622 01/12/17 1622 Imaging Last 72 hours Impressions Abdomen/Pelvis CT 01/12/17 0000 Signed Impressions: Service Date/Time: Thursday, January 12, 2017 18:45 - CONCLUSION: 1. Multiple loops of unopacified bowel and cystic areas surrounding the uterus as well as a small amount of free fluid in the cul-de-sac. The ovaries are not well-visualized. These findings are nonspecific and could indicate pelvic inflammatory change or possible cysts in the ovaries. 2. Nonobstructive bowel gas pattern. Justin Sy MD Caprini VTE Risk Assessment Caprini VTE Risk Assessment: Mod/High Risk (score >= 2) Caprini Risk Assessment Model Point Value = 1 Point Value = 2 Point Value = 3 Point Value = 5 Age 41-60 Minor surgery BMI > 25 kg/m2 Swollen legs Varicose veins or History of unexplained or recurrent spontaneous Oral contraceptives or hormone replacement Sepsis (< 1 month) Serious lung disease, including pneumonia (< 1 month) Abnormal pulmonary function Acute myocardial infarction Congestive heart failure (< 1 month) History of inflammatory bowel disease Medical patient at bed rest Age 61-74 Arthroscopic surgery Major open surgery (> 45 min) Laparoscopic surgery (> 45 min) Malignancy Confined to bed (> 72 hours) Immobilizing plaster cast Central venous access Age >= 75 History of VTE Family history of VTE Factor V Leiden Prothrombin [id number] Lupus anticoagulant Anticardiolipin antibodies Elevated serum homocysteine Heparin-induced thrombocytopenia Other congenital or acquired thrombophilia Stroke (< 1 month) Elective arthroplasty Hip, pelvis, or leg fracture Acute spinal cord injury (< 1 month) Prophylaxis Regimen Total Risk Factor Score Risk Level Prophylaxis Regimen 0-1 Low Early ambulation 2 Moderate Order ONE of the following: *Sequential Compression Device (SCD) *Heparin 5000 units SQ BID 3-4 Higher Order ONE of the following medications: *Heparin 5000 units SQ TID *Enoxaparin/Lovenox 40 mg SQ daily (WT < 150 kg, CrCl > 30 mL/min) *Enoxaparin/Lovenox 30 mg SQ daily (WT < 150 kg, CrCl > 10-29 mL/min) *Enoxaparin/Lovenox 30 mg SQ BID (WT < 150 kg, CrCl > 30 mL/min) AND/OR *Sequential Compression Device (SCD) 5 or more Highest Order ONE of the following medications: *Heparin 5000 units SQ TID (Preferred with Epidurals) *Enoxaparin/Lovenox 40 mg SQ daily (WT < 150 kg, CrCl > 30 mL/min) *Enoxaparin/Lovenox 30 mg SQ daily (WT < 150 kg, CrCl > 10-29 mL/min) *Enoxaparin/Lovenox 30 mg SQ BID (WT < 150 kg, CrCl > 30 mL/min) AND *Sequential Compression Device (SCD) Assessment and Plan Assessment and Plan Patient is a 26-year-old Female that presents to the ED with1 day hx of severe pelvic pain radiating to back and legs. On admission pt found to be septic with HR-106, WBC- 20.3 and positive UA. On abdominal exam pt found to have slightly distended abd, tympanic to percussion, diffuse tenderness to palpation more significant in LLQ, voluntary guarding, no rebound. CVA tenderness BL. Pt admitted for management of sepsis secondary to urinary source. Currently pt appears to be in distress due to pain, slightly hypotensive at 106/59 (s/p fluid bolus), with normalizing HR- 88. Code Status Full code Discussed Condition With Dr. Alex [facility] medicine day team Problem List: (1) Sepsis ICD Codes: A41.9 - Sepsis, unspecified organism Status: Acute Plan: Pt admitted for sepsis 2/2 to urinary source. On admission pt found to be septic with HR-106, WBC- 20.3 and positive UA (positive Leuk esterase, urine bacteria, mucus). Other DDx include ectopic , ovarian cyst or pelvic abscess. Ectopic ruled out given normal Beta HCG. -abdomen/pelvic CT showed: Multiple loops of unopacified bowel and cystic areas surrounding the uterus as well as a small amount of free fluid in the cul- de-sac. The ovaries are not well-visualized. These findings are nonspecific and could indicate pelvic inflammatory change or possible cysts in the ovaries.Nonobstructive bowel gas pattern. KIDNEYS: normal in size and shape. There is no mass, stone or hydronephrosis -Lactic acid 1.4 -c/w clindamycin 900 IV Q8h and gentamicin 275mg IV Q24h for treatment of UTI and possible PID -c/w norco 10 for pain (1-5), 2 tabs of norco 10 for pain 6-10 and Dilaudid 0.5mg Q4h for breakthrough pain -c/w IVF at 150mls/hr -c/w zofran for N/V -f/u cbc, cmp and GC and Chlamydia pcr, wet prep, urine cx, blood cx -continue to monitor vs -will obtain a transvaginal u/s if pelvic pain not improving to r/o pelvic abscess or ovarian cyst -may consider surgical/[employer] consult if sxs worsen -consider transition to po doxycycline once pt has been clinically stable for 24 hrs (2) Nutrition, metabolism, and development symptoms ICD Codes: R63.8 - Other symptoms and signs concerning food and fluid intake Plan: Fluids: 150mls/hr Electrolytes: WNL, replete as needed Nutrition: regular diet DVT ppx: Zoran Quiles MD, R1 Jan 12, 2017 21:02
[2017-01-12] MEDS ORDERED: ACETAMINOPHEN/HYDROcodone 325 MG/10 MG TAB PO PRN (21:15)
[2017-01-12] MEDS ORDERED: HYDROmorphone HCL PF 1 MG/ML VIAL IV PUSH ONE (21:15)
[2017-01-12] MEDS: SODIUM CHLOR 0.9% 1000 ML INJ 1,000 ML IV SCH (21:15)
[2017-01-12] MEDS: CLINDAMYCIN INJ 900 MG in SODIUM CHLORIDE 0.9% INJ 100 ML IV SCH (23:55)
[2017-01-13] VITALS (7 sets, daily range): BP systolic 92–117; BP diastolic 55–58; PULSE 65–96; RESP 16–18; TEMP 97.5–100.2; O2SAT 98–100
[2017-01-13] MEDS: HYDROmorphone HCL PF 1 MG/ML VIAL IV PUSH PRN ×3 (00:22→20:10)
[2017-01-13] MEDS: SODIUM CHLOR 0.9% 1000 ML INJ 1,000 ML IV SCH ×5 (03:32→23:21)
[2017-01-13] MEDS: ACETAMINOPHEN/HYDROcodone 325 MG/10 MG TAB PO PRN ×3 (03:32→19:50)
[2017-01-13] MEDS: CLINDAMYCIN INJ 900 MG in SODIUM CHLORIDE 0.9% INJ 100 ML IV SCH ×3 (04:59→21:16)
[2017-01-13] MEDS: ONDANSETRON HCL 4 MG/2 ML VIAL IV PUSH PRN ×2 (05:00→19:49)
--- NOTE | 2017-01-13 08:37 | HHI.HP ---
[facility] Service Family Medicine Primary Care Physician No Primary Care Physician Admission Diagnosis urosepsis Diagnoses: (1) Sepsis Diagnosis: Principal (2) Nutrition, metabolism, and development symptoms Diagnosis: Principal International Travel<30 Days: No Contact w/Intl Traveler<30days: No Known Affected Area: No History of Present Illness Ms Suresh is a 26-year-old Female who presents to the ED with1 day hx of severe pelvic pain. Patient stated pelvic pain started the day before admission and it was so "excruciating" that it would not let her sleep. Pt describes pain as dull --aching pain most severe in the suprapubic--lower abd area, rates 8/10. Pt states pain radiates to her entire back and to legs up to ankles. Pt reports voiding worsens the pain. She did not take anything for the pain at home. Pt stated she has not had a BM since the day before admission. Pt endorses fever ( subjective), chills, vomiting x 5 today (clear, non-bilious, non-bloody) and foul smelling urine that started 1 wk ago. Denies dysuria, vaginal discharge, cough, sob, and cp. Pt stated she had similar sxs1 year ago and was hospitalized and diagnosed with kidney infection. Pt currently does not have health insurance. Of note pt stated that she was treated for MRSA bacteruria on 12/13/16. Pt also stated she was treated for an ectopic on 12/13/[address] Dodd. She was 2 months gestation in that . I was not able to find documentation of COMPUTER GRAPHICS ILLUSTRATOR/OB procedure in pt's record. On review of records, on 12/13/16 pt came to the ED with complaints of right pelvic pain and was treated for yeast UTI and bacterial vaginosis with Diflucan and Flagyl, respectively. At that ED visit pt was also found to have a positive test but negative Beta HCG and was advised to return in 48hrs for repeat of Beta HCG level. U/S pelvis done on 12/13/16 showed: normal transabdominal evaluation of the uterus and ovaries with a corpus luteum seen within the right ovary. The endometrium is thickened but without visualized gestational sac. -In the ED pt received fluid bolus x2 for hypotension, zofran 4mg x1, morphine 4mg and tylenol 500mg x1 for pain, 1 dose of gentamicin 275mg (for treatment of UTI due to hx of MRSA in urine as per ED physician). A pelvic exam was done by ED physician (ED physician reported slight cervical motion tenderness with purulent and foul smelling vaginal discharge), wet prep, GC and Chlamydia PCR samples obtained at that time. COMPUTER GRAPHICS ILLUSTRATOR/OB Hx 1 spontaneous miscarriage 1 ectopic at 2months gestation -Pap smear- pt stated it was test was done 12/13/16 but unsure of results -sexually active with one male partner, uses condoms inconsistently, last sexually active 4 days ago -Has not had a menstrual period since ectopic on 12/13/16, per pt -No hx of STDs -Never tested for HIV COMPUTER GRAPHICS ILLUSTRATOR was consulted and examined her as well as a pelvic ultrasound. They were concerned about her overall condition especially as she is hypotensive and recommended adding ampicillin and consulting surgery. Her pain is still present "all over her abdomen" with radiation as described above. Review of Systems Other Constitutional: COMPLAINS OF: Fever, Chills Cardiovascular: DENIES: Chest pain, Palpitations Gastrointestinal: COMPLAINS OF: Abdominal pain, Anorexia (1 day hx), DENIES: Bloody stools Genitourinary: DENIES: Abnormal vaginal bleeding, Urinary frequency, Hematuria , Vaginal discharge Other as per hpi, Past Family Social History Past Medical History Anxiety Allergies: Coded Allergies: pineapple (Unverified Allergy, Severe, 10/27/16) Family History 2 sister,1 brother, father and mother - all healthy grandmother- cataracts Social History Pt is currently unemployed and lives in an apartment complex with a roommate. -Smoke marijuana every day, 7 grams/day throughout the day since age of 15 -Denies any hx of IV drug use -Alcohol- occasionally, last drank encarnacion goose 2 1/2 cups on Wednesday Physical Exam Vital Signs Vital Signs Date Time Temp Pulse Resp B/P (MAP) Pulse Ox O2 Delivery O2 Flow Rate FiO2 01/13/17 04:00 97.9 73 18 92/55 (67) 99 01/13/17 00:00 99.0 96 18 98/58 (71) 100 01/12/17 20:37 97 21 01/12/17 20:13 88 18 106/59 (75) 100 Room Air 01/12/17 18:57 99.3 96 18 98/63 (75) 98 Room Air 01/12/17 15:41 99.5 106 20 99/64 (76) 97 Room Air Physical Exam GENERAL: This is a well-nourished, well-developed patient, Pt appeared to be in distress due to pain,pt is avoiding laying on her back because it worsens pain. SKIN: No rashes, ecchymoses or lesions. Cool and dry. HEAD: Atraumatic. Normocephalic. EYES: Pupils equal round and reactive. Extraocular motions intact. No scleral icterus. No injection or drainage. ENT: Nose without bleeding, purulent drainage or septal hematoma. Airway patent. NECK: Trachea midline. No JVD or lymphadenopathy. Supple, nontender, no meningeal signs. CARDIOVASCULAR: Normal S1 and S2. Regular rate and rhythm without murmurs, gallops, or rubs. RESPIRATORY: CTA BL. Breath sounds equal bilaterally. No wheezes, rales, or rhonchi. GASTROINTESTINAL: Abdomen soft, diffusely tenderness to palpation more significant in LLQ, slightly distended, and tympanic to percussion. No hepato- splenomegaly, or palpable masses. Voluntary guarding, no rebound. CVA tenderness BL. MUSCULOSKELETAL: Extremities without clubbing, cyanosis, or edema. No joint tenderness, effusion, or edema noted. Slight calf tenderness. Negative Homans sign bilaterally. NEUROLOGICAL: Awake and alert. Cranial nerves II through XII intact. Motor and sensory grossly within normal limits. Five out of 5 muscle strength in all muscle groups. Normal speech. Laboratory Laboratory Tests Test 01/12/17 16:22 01/12/17 17:00 01/12/17 19:56 White Blood Count 20.3 Red Blood Count 4.65 Hemoglobin 13.1 Hematocrit 39.3 Mean Corpuscular Volume 84.5 Mean Corpuscular Hemoglobin 28.2 Mean Corpuscular Hemoglobin Concent 33.4 Red Cell Distribution Width 13.7 Platelet Count 187 Mean Platelet Volume 8.3 Neutrophils (%) (Auto) 88.0 Lymphocytes (%) (Auto) 6.9 Monocytes (%) (Auto) 4.8 Eosinophils (%) (Auto) 0.0 Basophils (%) (Auto) 0.3 Neutrophils # (Auto) 17.9 Lymphocytes # (Auto) 1.4 Monocytes # (Auto) 1.0 Eosinophils # (Auto) 0.0 Basophils # (Auto) 0.1 CBC Comment DIFF FINAL Differential Comment Urine Color YELLOW Urine Turbidity HAZY Urine pH 7.5 Urine Specific [place] 1.038 Urine Protein 100 Urine Glucose (UA) NEG Urine Ketones 150 Urine Occult Blood NEG Urine Nitrite NEG Urine Bilirubin NEG Urine Urobilinogen 4.0 Urine Leukocyte Esterase MOD Urine RBC 6 Urine WBC 28 Urine Squamous Epithelial Cells 34 Urine Bacteria OCC Urine Mucus MANY Microscopic Urinalysis Comment CULTURE INDICATED Blood Urea Nitrogen 9 Creatinine 0.83 Random Glucose 103 Total Protein 8.0 Albumin 3.6 Calcium Level 8.9 Alkaline Phosphatase 55 Aspartate Amino Transf (AST/SGOT) 14 Alanine Aminotransferase (ALT/SGPT) 16 Total Bilirubin 0.4 Sodium Level 136 Potassium Level 3.5 Chloride Level 105 Carbon Dioxide Level 23.6 Anion Gap 7 Estimat Glomerular Filtration Rate 101 Lactic Acid Level 1.4 1.2 Human Chorionic Gonadotropin, Quant LESS THAN 1 Urine Opiates Screen NEG Urine Barbiturates Screen NEG Urine Amphetamines Screen NEG Urine Benzodiazepines Screen NEG Urine Cocaine Screen NEG Urine Cannabinoids Screen POS Clue Cells (Wet Prep) NONE SEEN Vaginal Trichomonas (Wet Prep) NONE SEEN Vaginal Yeast (Wet Prep) NONE SEEN Chlamydia trachomatis DNA (PCR) NOT DETECTED Neisseria gonorrhoeae DNA (PCR) NOT DETECTED Date/Time Source Procedure Growth Status 01/12/17 17:05 Blood Peripheral Aerobic Blood Culture Pending Received 01/12/17 17:05 Blood Peripheral Anaerobic Blood Culture Pending Received 01/12/17 16:22 Urine Clean Catch Urine Culture Pending Received Result Diagram: 01/12/17 1622 01/12/17 1622 Imaging Last 72 hours Impressions Abdomen/Pelvis CT 01/12/17 0000 Signed Impressions: Service Date/Time: Thursday, January 12, 2017 18:45 - CONCLUSION: 1. Multiple loops of unopacified bowel and cystic areas surrounding the uterus as well as a small amount of free fluid in the cul-de-sac. The ovaries are not well-visualized. These findings are nonspecific and could indicate pelvic inflammatory change or possible cysts in the ovaries. 2. Nonobstructive bowel gas pattern. MD Meghan Carvalhoi VTE Risk Assessment Caprini VTE Risk Assessment: Mod/High Risk (score >= 2) Caprini Risk Assessment Model Point Value = 1 Point Value = 2 Point Value = 3 Point Value = 5 Age 41-60 Minor surgery BMI > 25 kg/m2 Swollen legs Varicose veins or History of unexplained or recurrent spontaneous Oral contraceptives or hormone replacement Sepsis (< 1 month) Serious lung disease, including pneumonia (< 1 month) Abnormal pulmonary function Acute myocardial infarction Congestive heart failure (< 1 month) History of inflammatory bowel disease Medical patient at bed rest Age 61-74 Arthroscopic surgery Major open surgery (> 45 min) Laparoscopic surgery (> 45 min) Malignancy Confined to bed (> 72 hours) Immobilizing plaster cast Central venous access Age >= 75 History of VTE Family history of VTE Factor V Leiden Prothrombin [id number] Lupus anticoagulant Anticardiolipin antibodies Elevated serum homocysteine Heparin-induced thrombocytopenia Other congenital or acquired thrombophilia Stroke (< 1 month) Elective arthroplasty Hip, pelvis, or leg fracture Acute spinal cord injury (< 1 month) Prophylaxis Regimen Total Risk Factor Score Risk Level Prophylaxis Regimen 0-1 Low Early ambulation 2 Moderate Order ONE of the following: *Sequential Compression Device (SCD) *Heparin 5000 units SQ BID 3-4 Higher Order ONE of the following medications: *Heparin 5000 units SQ TID *Enoxaparin/Lovenox 40 mg SQ daily (WT < 150 kg, CrCl > 30 mL/min) *Enoxaparin/Lovenox 30 mg SQ daily (WT < 150 kg, CrCl > 10-29 mL/min) *Enoxaparin/Lovenox 30 mg SQ BID (WT < 150 kg, CrCl > 30 mL/min) AND/OR *Sequential Compression Device (SCD) 5 or more Highest Order ONE of the following medications: *Heparin 5000 units SQ TID (Preferred with Epidurals) *Enoxaparin/Lovenox 40 mg SQ daily (WT < 150 kg, CrCl > 30 mL/min) *Enoxaparin/Lovenox 30 mg SQ daily (WT < 150 kg, CrCl > 10-29 mL/min) *Enoxaparin/Lovenox 30 mg SQ BID (WT < 150 kg, CrCl > 30 mL/min) AND *Sequential Compression Device (SCD) Assessment and Plan Assessment and Plan Patient is a 26-year-old Female who presents to the ED with1 day hx of severe pelvic pain radiating to back and legs. On admission pt found to be septic with HR-106, WBC- 20.3 and positive UA. On abdominal exam pt found to have slightly distended abd, tympanic to percussion, diffuse tenderness to palpation more significant in LLQ, voluntary guarding, no rebound. CVA tenderness BL. Pt admitted for management of sepsis secondary to urinary source vs other source. Currently pt appears to be in distress due to pain, hypotensive at 90s over 50s (s/p fluid bolus), with normalizing HR- 88. Problem List: (1) Sepsis ICD Codes: A41.9 - Sepsis, unspecified organism Status: Acute Plan: Pt admitted for sepsis 2/2 to urinary source. On admission pt found to be septic with HR-106, WBC- 20.3 and positive UA (positive Leuk esterase, urine bacteria, mucus). Other DDx include ectopic , ovarian cyst or pelvic abscess. Ectopic ruled out given normal Beta HCG. -abdomen/pelvic CT showed: Multiple loops of unopacified bowel and cystic areas surrounding the uterus as well as a small amount of free fluid in the cul- de-sac. The ovaries are not well-visualized. These findings are nonspecific and could indicate pelvic inflammatory change or possible cysts in the ovaries.Nonobstructive bowel gas pattern. KIDNEYS: normal in size and shape. There is no mass, stone or hydronephrosis -Lactic acid 1.4 -c/w clindamycin 900 IV Q8h and gentamicin 275mg IV Q24h for treatment of UTI and possible PID, adding ampicillin -c/w norco 10 for pain (1-5), 2 tabs of norco 10 for pain 6-10 and Dilaudid 0.5mg Q4h for breakthrough pain -c/w IVF at 150mls/hr -c/w zofran for N/V -f/u cbc, cmp and GC and Chlamydia pcr, wet prep, urine cx, blood cx -continue to monitor vs - transvaginal u/s done. COMPUTER GRAPHICS ILLUSTRATOR saw her and recommended surgery to see her -consider transition to po doxycycline once pt has been clinically stable for 24 hrs (2) Nutrition, metabolism, and development symptoms ICD Codes: R63.8 - Other symptoms and signs concerning food and fluid intake Plan: Fluids: 150mls/hr, bolus today Electrolytes: WNL, replete as needed Nutrition: regular diet DVT ppx: SCDs Problem Qualifiers (1) Sepsis: Qualified Codes: A41.9 - Sepsis, unspecified organism Pat Swenson MD Jan 13, 2017 08:37
[2017-01-13] MEDS ORDERED: SODIUM CHLOR 0.9% 1000 ML INJ 1,000 ML IV ONE ×2 (08:45→15:00)
[2017-01-13] MEDS: POLYETHYLENE GLYCOL 17 GM PKG PO SCH (08:49)
[2017-01-13] MEDS: SODIUM CHLORIDE 0.9% FLUSH 10 ML FLUSH IV FLUSH SCH ×2 (09:00→21:00)
[2017-01-13 09:34] LABS: AUTOMATED NEUTROPHIL # 12.6 TH/MM3 (1.8-7.7); BASOPHIL # 0.1 TH/MM3 (0-0.2); BASOPHIL % 0.4 % (0.0-2.0); EOSINOPHIL % 0.1 % (0.0-4.0); HEMATOCRIT 31.6 % (35.0-46.0); HEMOGLOBIN 10.5 GM/DL (11.6-15.3); LYMPH % 13.5 % (9.0-44.0); LYMPHOCYTE # 2.1 TH/MM3 (1.0-4.8); MEAN CELL VOLUME 85.1 FL (80.0-100.0); MEAN CORPUSCULAR HEMOGLOBIN 28.3 PG (27.0-34.0); MEAN CORPUSCULAR HGB CONC 33.2 % (32.0-36.0); MEAN PLATELET VOLUME 9.1 FL (7.0-11.0); MONO % 4.9 % (0.0-8.0); MONOCYTE # 0.8 TH/MM3 (0-0.9); NEUT % 81.1 % (16.0-70.0); PLATELET COUNT 153 TH/MM3 (150-450); RED BLOOD COUNT 3.71 MIL/MM3 (4.00-5.30); WHITE BLOOD COUNT 15.5 TH/MM3 (4.0-11.0)
--- NOTE | 2017-01-13 09:54 | PD.CONS ---
HPI Chief Complaint Pelvic pain Date Seen: Jan 13, 2017 Time Seen: 09:15 Travel History International Travel<30 Days: No Contact w/Intl Traveler<30Days: No History of Present Illness HPI 26-year-old presenting with pelvic pain starting yesterday. The pain started suddenly and was associated with chills but no fever. She denies vaginal discharge, vaginal bleeding, dysuria, urinary frequency. She has not had sex recently and has no h/o STDs including gonorrhea, chlamydia, herpes, syphilis, or HIV. History Past Medical History Narrative Medical Anxiety Obstetric History Obstetric History ?ectopic 12/13/16, supposedly treated by Yous[facility] but their office states they have no record of this patient being seen. ER record shows negative beta-hCG despite positive urine test on 12/13/16; ER physician at the time suspected that urine sample tested was not the patient's. Past Surgical History Surgical History: No Previous Surgery Family History Family History: Negative Social History Alcohol Use: No Tobacco Use: No Substance Abuse: Yes (Marijuana ~7 joints a day. Denies other drug use.) Allergies-Medications (Allergen,Severity, Reaction): Coded Allergies: pineapple (Unverified Allergy, Severe, 10/27/16) Home Meds Active Scripts Fluconazole (Diflucan) 150 Mg Tab, 150 MG PO ONCE for Infection, #1 TAB 0 Refills Prov:Shanda Herring 12/13/16 Metronidazole (Flagyl) 500 Mg Tab, 500 MG PO BID for Infection for 7 Days, #14 TAB 0 Refills Prov:Shanda Herring 12/13/16 Nitrofurantoin Monohydrate Macrocrystals (Macrobid) 100 Mg Capsule, 100 MG PO BID for Infection for 7 Days, #14 CAP 0 Refills Prov:Shanda Herring 12/13/16 Review of Systems Except as stated in HPI: all other systems reviewed are Neg Physical Exam Vital Signs Date Time Temp Pulse Resp B/P (MAP) Pulse Ox O2 Delivery O2 Flow Rate FiO2 01/13/17 08:45 97.6 77 18 97/56 (70) 99 01/13/17 04:00 97.9 73 18 92/55 (67) 99 01/13/17 00:00 99.0 96 18 98/58 (71) 100 10/31/17 20:37 97 21 01/12/17 20:13 88 18 106/59 (75) 100 Room Air 01/12/17 18:57 99.3 96 18 98/63 (75) 98 Room Air 01/12/17 15:41 99.5 106 20 99/64 (76) 97 Room Air Narrative GENERAL: Well-nourished, well-developed patient. SKIN: Warm and dry. HEAD: Normocephalic and atraumatic. EYES: No scleral icterus. No injection or drainage. ENT: No nasal drainage noted. Mucous membranes pink. Airway patent. NECK: Supple, trachea midline. No JVD. CARDIOVASCULAR: Regular rate and rhythm without murmurs, gallops, or rubs. RESPIRATORY: Breath sounds equal bilaterally. No accessory muscle use. ABDOMEN/GI: Abdomen soft, diffusely tender to palpation with voluntary guarding , bowel sounds present, no rebound. GENITOURINARY: External Genitalia: intact and normal in appearance. Bi-manual exam: positive for cervical motion tenderness. No blood on glove. Speculum exam performed in ER with mild discharge, normal-appearing cervix (see ER physician documentation). EXTREMITIES: No cyanosis or edema. BACK: Nontender without obvious deformity. Moderate bilateral CVA tenderness. NEUROLOGICAL: Awake and alert. Motor and sensory grossly within normal limits. Five out of 5 muscle strength in all muscle groups. Normal speech. Data Data Vital Signs Reviewed: Yes Orders Orders Complete Blood Count With Diff (01/12/17 16:12) Comprehensive Metabolic Panel (01/12/17 16:12) Urinalysis - C+S If Indicated (01/12/17 16:12) Ed Urine Pregnancytest Poc (01/12/17 16:12) Lactic Acid (01/12/17 16:12) Urine Culture (01/12/17 16:22) Lactic Acid Sepsis Protocol (01/12/17 16:46) Blood Culture (01/12/17 16:46) Gentamicin Inj (Gentamicin Inj) (01/12/17 16:46) Sodium Chlor 0.9% 1000 Ml Inj (Ns 1000 M (01/12/17 17:00) Morphine Inj (Morphine Inj) (01/12/17 17:00) Ondansetron Inj (Zofran Inj) (01/12/17 17:00) Acetaminophen (Tylenol) (01/12/17 17:45) Ct Abd/Pel W Iv Contrast(Rout) (01/12/17 ) Iohexol 350 Inj (Omnipaque 350 Inj) (01/12/17 18:48) Hydromorphone Pf Inj (Dilaudid Pf Inj) (01/12/17 20:00) Gc And Chlamydia Pcr (01/12/17 20:00) Wet Prep Profile (01/12/17 20:00) Admit Order (Ed Use Only) (01/12/17 ) Vital Signs (Adult) Q4H (01/12/17 20:02) Notify Dr: Other (01/12/17 20:02) Diet Regular Basic (01/13/17 Breakfast) Activity Oob Ad Aimee (01/12/17 20:02) Admit To Inpatient (01/12/17 ) Vital Signs (Adult) ABDIAS.Q4H (01/12/17 20:03) Intake + Output 06,14,22 (01/12/17 20:03) Resp Oxygen Maldonado C Titrat 1-4 L (01/12/17 ) Sodium Chloride 0.9% Flush (Ns Flush) (01/12/17 20:15) Sodium Chloride 0.9% Flush (Ns Flush) (01/12/17 21:00) Inpatient Certification (01/12/17 ) Sodium Chlor 0.9% 1000 Ml Inj (Ns 1000 M (01/12/17 21:00) Clindamycin Inj (Cleocin Inj) (01/12/17 21:00) Hydromorphone Pf Inj (Dilaudid Pf Inj) (01/12/17 21:15) Sodium Chlor 0.9% 1000 Ml Inj (Ns 1000 M (01/12/17 21:15) Drug Screen, Random Urine (01/12/17 21:13) Specimen To Be Collected PRN (01/12/17 21:13) Acetamin-Hydrocod 325-10 Mg ([place] 10-32 (01/12/17 21:15) Acetamin-Hydrocod 325-10 Mg ([place] 10-32 (01/12/17 21:15) Hydromorphone Pf Inj (Dilaudid Pf Inj) (01/12/17 21:15) Polyethylene Glycol (Miralax) (01/13/17 09:00) Scd Bilateral/Knee High ABDISA.QSHIFT (01/12/17 21:13) Beta Hcg (Quant/Titer) (01/12/17 16:22) Complete Blood Count With Diff (01/13/17 06:00) Comprehensive Metabolic Panel (01/13/17 06:00) Gentamicin Inj (Gentamicin Inj) (01/13/17 16:46) Urinalysis - C+S If Indicated (01/14/17 06:00) Specimen To Be Collected PRN (01/13/17 00:23) Ondansetron Inj (Zofran Inj) (01/13/17 01:15) Case Management Consult (01/13/17 10:00) Consult Gynecology (01/13/17 ) Us Pelvis Comp W Transvaginal (01/13/17 ) Sodium Chlor 0.9% 1000 Ml Inj (Ns 1000 M (01/13/17 08:45) (Hub Use Only)Inp Phy Cons/Ref (01/13/17 ) Westergren Sedimentation Rate (01/13/17 09:22) Ampicillin Inj (Ampicillin Inj) (01/13/17 12:00) Labs Laboratory Tests Test 01/12/17 16:22 01/12/17 17:00 01/12/17 19:56 01/13/17 08:00 White Blood Count 20.3 Red Blood Count 4.65 Hemoglobin 13.1 Hematocrit 39.3 Mean Corpuscular Volume 84.5 Mean Corpuscular Hemoglobin 28.2 Mean Corpuscular Hemoglobin Concent 33.4 Red Cell Distribution Width 13.7 Platelet Count 187 Mean Platelet Volume 8.3 Neutrophils (%) (Auto) 88.0 Lymphocytes (%) (Auto) 6.9 Monocytes (%) (Auto) 4.8 Eosinophils (%) (Auto) 0.0 Basophils (%) (Auto) 0.3 Neutrophils # (Auto) 17.9 Lymphocytes # (Auto) 1.4 Monocytes # (Auto) 1.0 Eosinophils # (Auto) 0.0 Basophils # (Auto) 0.1 CBC Comment DIFF FINAL Differential Comment Urine Color YELLOW Urine Turbidity HAZY Urine pH 7.5 Urine Specific [place] 1.038 Urine Protein 100 Urine Glucose (UA) NEG Urine Ketones 150 Urine Occult Blood NEG Urine Nitrite NEG Urine Bilirubin NEG Urine Urobilinogen 4.0 Urine Leukocyte Esterase MOD Urine RBC 6 Urine WBC 28 Urine Squamous Epithelial Cells 34 Urine Bacteria OCC Urine Mucus MANY Microscopic Urinalysis Comment CULTURE INDICATED Blood Urea Nitrogen 9 Creatinine 0.83 Random Glucose 103 Total Protein 8.0 Albumin 3.6 Calcium Level 8.9 Alkaline Phosphatase 55 Aspartate Amino Transf (AST/SGOT) 14 Alanine Aminotransferase (ALT/SGPT) 16 Total Bilirubin 0.4 Sodium Level 136 Potassium Level 3.5 Chloride Level 105 Carbon Dioxide Level 23.6 Anion Gap 7 Estimat Glomerular Filtration Rate 101 Lactic Acid Level 1.4 1.2 Human Chorionic Gonadotropin, Quant LESS THAN 1 Urine Opiates Screen NEG Urine Barbiturates Screen NEG Urine Amphetamines Screen NEG Urine Benzodiazepines Screen NEG Urine Cocaine Screen NEG Urine Cannabinoids Screen POS Clue Cells (Wet Prep) NONE SEEN Vaginal Trichomonas (Wet Prep) NONE SEEN Vaginal Yeast (Wet Prep) NONE SEEN Chlamydia trachomatis DNA (PCR) NOT DETECTED Neisseria gonorrhoeae DNA (PCR) NOT DETECTED Date/Time Source Procedure Growth Status 01/12/17 17:05 Blood Peripheral Aerobic Blood Culture Pending Received 01/12/17 17:05 Blood Peripheral Anaerobic Blood Culture Pending Received 01/12/17 16:22 Urine Clean Catch Urine Culture Pending Received IMAGING Abdomen/Pelvis CT 01/12/17 0000 Signed Impressions: Service Date/Time: Thursday, January 12, 2017 18:45 - CONCLUSION: 1. Multiple loops of unopacified bowel and cystic areas surrounding the uterus as well as a small amount of free fluid in the cul-de-sac. The ovaries are not well-visualized. These findings are nonspecific and could indicate pelvic inflammatory change or possible cysts in the ovaries. 2. Nonobstructive bowel gas pattern. Justin Sy MD [facility] Medical Record Reviewed: Yes Narrative Course / MDM 26 yo presenting with pelvic pain #1 Acute pelvic pain WBC 20. +cervical motion tenderness making PID a possibility, but urine also suggestive of UTI (pyuria, leuk esterase) and CVA tenderness is present. GC/Chlamydia negative CT showing possible pelvic inflammation, equivocal (images and report reviewed by Dr. Dominguez and myself) Wet prep negative for trichomonas, BV, yeast BP trending low but stable - Continue Gentamicin and Clindamycin - Add ampicillin 2 g IV Q6H to expand coverage for pelvic infection - F/u pelvic ultrasound - Follow abdominal exam. If surgical abdomen develops, consider having general surgery perform ex lap or exploratory laparoscopy since this may not be FITTING ROOM SUPERVISOR issue. #2 h/o ectopic Per patient treated medically on 12/13, but beta hCG at that time was negative ( see above). Dr. Dodd states she has never seen the patient. ED urine test negative - f/u with an SENIOR WATER/WASTEWATER ENGINEER as an outpatient as needed - advise multivitamin with folic acid daily SENIOR WATER/WASTEWATER ENGINEER to follow. Thank you for the opportunity to assist in the care of this patient. sdw Dr. Dominguez Admitting diagnosis: urosepsis Condition: Stable Sin Almanzar MD R2 Jan 13, 2017 09:54
[2017-01-13 09:57] LABS: AST (GOT) 11 U/L (15-37); BICARBONATE 21.3 MEQ/L (21.0-32.0); BLOOD UREA NITROGEN 6 MG/DL (7-18); CALCIUM 7.9 MG/DL (8.5-10.1); CHLORIDE 109 MEQ/L (98-107); CREATININE 0.66 MG/DL (0.50-1.00); GLOMERULAR FILTRATION RATE 131 ML/MIN (>89); GLUCOSE,RANDOM 80 MG/DL (74-106); SODIUM (NA) 139 MEQ/L (136-145)
[2017-01-13 10:04] LABS: ALKALINE PHOSPHATASE 49 U/L (45-117); ALT (GPT) 11 U/L (10-53); TOTAL BILIRUBIN ADULT 0.4 MG/DL (0.2-1.0); TOTAL PROTEIN 6.1 GM/DL (6.4-8.2)
[2017-01-13 10:22] LABS: ALBUMIN 2.6 GM/DL (3.4-5.0)
--- NOTE | 2017-01-13 12:13 | RADRPT ---
EXAM DATE/TIME: 01/13/2017 08:56 [place] COMPARISON: US PELVIS ([facility] PREG/ECTOPIC), December 13, 2016, 10:29. CT ABDOMEN & PELVIS W CONTRAST, January 12, 2017, 18:45. INDICATIONS : Severe pelvic pain. MEDICAL HISTORY : . Methicillin-resistant Staphylococcus aureus. Miscarriage x2. Ectopic . Anxiety. SURGICAL HISTORY : None. ENCOUNTER: Subsequent ACUITY: 2 days PAIN SCORE: 10/10 LOCATION: Bilateral pelvis MEASUREMENTS: UTERUS: 8.1 x 4.7 x 3.6 cm ENDOMETRIAL STRIPE: 11 mm RIGHT OVARY: 4.5 x 3.2 x 2.9 cm LEFT OVARY: 4.1 x 2.9 x 2.1 cm FINDINGS: UTERUS: The myometrium has homogeneous echotexture without mass. RIGHT OVARY: There is a dilated tubular appearing structure in the right adnexa which measures up to [address] This contains low level internal echogenicity. The ovary appears cystic with complex hypoechoic areas. Largest measures up to 2.7 x 2.1 x 2 cm. LEFT OVARY: Ovary contains no mass or significant cystic lesion. MISCELLANEOUS: A [id number] amount of free fluid is present. CONCLUSION: 1. The uterus and left ovary appear unremarkable. 2. The right ovary demonstrates complex hypoechoic cystic areas as well as apparent dilated tubular s tructure which could represent hydrosalpinx. 3. Small to moderate amount of free fluid in the pelvis. Justin Sy MD on January 13, 2017 at 12:07 Board Certified Radiologist. This report was verified electronically.
--- NOTE | 2017-01-13 13:33 | PD.CONS ---
HPI Service General surgery Consult Requested By Gynecology Reason for Consult Severe abdominal tenderness Primary Care Physician No Primary Care Physician History of Present Illness The patient is a 26-year-old female presented with acute onset of abdominal and pelvic pain started yesterday morning. She states that she felt fine before. She describes the pain as diffuse throughout her entire abdomen and pelvis. She also has pelvic and rectal pressure. She cannot remember the last time she had a bowel movement. She's had nausea and some vomiting. She complains of subjective fever and chills. She denies vaginal discharge. Earlier in December she was treated medically for an ectopic . test is negative. She is negative for gonorrhea and chlamydia. Urinalysis shows likely urinary tract infection. She has leukocytosis which improved to 15,000 today from 20,[address] abdomen and pelvis shows inflammatory changes in the pelvis. Pelvic ultrasound shows free fluid and possible hydrosalpinx on the right. Review of Systems Constitutional: COMPLAINS OF: Fever, Chills Eyes: DENIES: Eye inflammation, Eye pain Respiratory: DENIES: Cough, Shortness of breath Cardiovascular: DENIES: Chest pain, Palpitations Gastrointestinal: COMPLAINS OF: Abdominal pain, Constipation, Nausea, Vomiting Musculoskeletal: DENIES: Back pain, Neck pain Neurologic: DENIES: Paresthesias, Seizures Past Family Social History Past Medical History Ectopic Past Surgical History None Reported Medications None Allergies: Coded Allergies: pineapple (Unverified Allergy, Severe, 10/27/16) Active Ordered Medications Current Medications Medications (Trade) Dose Ordered Sig/Martinez Route Start Time Stop Time Status Last Admin (NS Flush) 2 ml UNSCH PRN IV FLUSH 01/12/17 20:15 (NS Flush) 2 ml BID IV FLUSH 01/12/17 21:00 01/12/17 21:00 Clindamycin Phosphate 900 mg/ Sodium Chloride 106 ml @ 212 mls/hr Q8H IV 01/12/17 21:00 01/13/17 04:59 Sodium Chloride 1,000 ml @ 150 mls/hr Q6H40M IV 01/12/17 21:15 01/12/17 21:15 ([place] 10-325 Mg) 1 tab Q6H PRN PO 01/12/17 21:15 ([place] 10-325 Mg) 2 tab Q6H PRN PO 01/12/17 21:15 01/13/17 08:50 (Miralax) 17 gm DAILY PO 01/13/17 09:00 01/13/17 08:49 Gentamicin Sulfate 275 mg/ Sodium Chloride 106.875 ml @ 100 mls/ hr Q24H IV 01/13/17 16:46 (Zofran Inj) 4 mg Q6HR PRN IV PUSH 01/13/17 01:15 01/13/17 05:00 Ampicillin Sodium 2000 mg/Sodium Chloride 100 ml @ 400 mls/hr Q6HR IV 01/13/17 12:00 (Dilaudid Pf Inj) 1 mg Q4H PRN IV PUSH 01/13/17 13:15 Family History Noncontributory Social History Occasional alcohol. She smokes marijuana. Physical Exam Vital Signs Vital Signs Date Time Temp Pulse Resp B/P (MAP) Pulse Ox O2 Delivery O2 Flow Rate FiO2 01/13/17 12:53 97.8 65 16 95/56 (69) 98 01/13/17 08:45 97.6 77 18 97/56 (70) 99 01/13/17 04:00 97.9 73 18 92/55 (67) 99 01/13/17 00:00 99.0 96 18 98/58 (71) 100 01/12/17 20:37 97 21 01/12/17 20:13 88 18 106/59 (75) 100 Room Air 01/12/17 18:57 99.3 96 18 98/63 (75) 98 Room Air 01/12/17 15:41 99.5 106 20 99/64 (76) 97 Room Air Physical Exam GENERAL: Awake and alert. Cooperative. Appears moderately uncomfortable and is laying on her side HEAD: Normocephalic. Atraumatic. CHEST: Nonlabored breathing. No respiratory distress. CARDIOVASCULAR: Regular rate and rhythm. ABDOMEN: Diffuse rebound tenderness. Soft. Mildly distended. EXTREMITIES: No cyanosis or edema. SKIN: Warm, dry, nonjaundiced. Laboratory Laboratory Tests Test 01/12/17 16:22 01/12/17 17:00 01/12/17 19:56 01/13/17 08:00 White Blood Count 20.3 15.5 Red Blood Count 4.65 3.71 Hemoglobin 13.1 10.5 Hematocrit 39.3 31.6 Mean Corpuscular Volume 84.5 85.1 Mean Corpuscular Hemoglobin 28.2 28.3 Mean Corpuscular Hemoglobin Concent 33.4 33.2 Red Cell Distribution Width 13.7 14.0 Platelet Count 187 153 Mean Platelet Volume 8.3 9.1 Neutrophils (%) (Auto) 88.0 81.1 Lymphocytes (%) (Auto) 6.9 13.5 Monocytes (%) (Auto) 4.8 4.9 Eosinophils (%) (Auto) 0.0 0.1 Basophils (%) (Auto) 0.3 0.4 Neutrophils # (Auto) 17.9 12.6 Lymphocytes # (Auto) 1.4 2.1 Monocytes # (Auto) 1.0 0.8 Eosinophils # (Auto) 0.0 0.0 Basophils # (Auto) 0.1 0.1 CBC Comment DIFF FINAL DIFF FINAL Differential Comment Urine Color YELLOW Urine Turbidity HAZY Urine pH 7.5 Urine Specific [place] 1.038 Urine Protein 100 Urine Glucose (UA) NEG Urine Ketones 150 Urine Occult Blood NEG Urine Nitrite NEG Urine Bilirubin NEG Urine Urobilinogen 4.0 Urine Leukocyte Esterase MOD Urine RBC 6 Urine WBC 28 Urine Squamous Epithelial Cells 34 Urine Bacteria OCC Urine Mucus MANY Microscopic Urinalysis Comment CULTURE INDICATED Blood Urea Nitrogen 9 6 Creatinine 0.83 0.66 Random Glucose 103 80 Total Protein 8.0 6.1 Albumin 3.6 2.6 Calcium Level 8.9 7.9 Alkaline Phosphatase 55 49 Aspartate Amino Transf (AST/SGOT) 14 11 Alanine Aminotransferase (ALT/SGPT) 16 11 Total Bilirubin 0.4 0.4 Sodium Level 136 139 Potassium Level 3.5 3.5 Chloride Level 105 109 Carbon Dioxide Level 23.6 21.3 Anion Gap 7 9 Estimat Glomerular Filtration Rate 101 131 Lactic Acid Level 1.4 1.2 Human Chorionic Gonadotropin, Quant LESS THAN 1 Urine Opiates Screen NEG Urine Barbiturates Screen NEG Urine Amphetamines Screen NEG Urine Benzodiazepines Screen NEG Urine Cocaine Screen NEG Urine Cannabinoids Screen POS Clue Cells (Wet Prep) NONE SEEN Vaginal Trichomonas (Wet Prep) NONE SEEN Vaginal Yeast (Wet Prep) NONE SEEN Chlamydia trachomatis DNA (PCR) NOT DETECTED Neisseria gonorrhoeae DNA (PCR) NOT DETECTED Date/Time Source Procedure Growth Status 01/12/17 17:05 Blood Peripheral Aerobic Blood Culture - Preliminary NO GROWTH IN 1 DAY Resulted 01/12/17 17:05 Blood Peripheral Anaerobic Blood Culture - Preliminary NO GROWTH IN 1 DAY Resulted 01/12/17 16:22 Urine Clean Catch Urine Culture Pending Received Result Diagram: 01/13/17 0800 01/13/17 0800 Imaging Last Impressions Pelvis Ultrasound 01/13/17 0000 Signed Impressions: Service Date/Time: Friday, January 13, 2017 08:56 - CONCLUSION: 1. The uterus and left ovary appear unremarkable. 2. The right ovary demonstrates complex hypoechoic cystic areas as well as apparent dilated tubular structure which could represent hydrosalpinx. 3. Small to moderate amount of free fluid in the pelvis. Justin Sy MD Abdomen/Pelvis CT 01/12/17 0000 Signed Impressions: Service Date/Time: Thursday, January 12, 2017 18:45 - CONCLUSION: 1. Multiple loops of unopacified bowel and cystic areas surrounding the uterus as well as a small amount of free fluid in the cul-de-sac. The ovaries are not well-visualized. These findings are nonspecific and could indicate pelvic inflammatory change or possible cysts in the ovaries. 2. Nonobstructive bowel gas pattern. Justin Sy MD Assessment and Plan Assessment and Plan 26-year-old female with acute onset of abdominal pelvic pain with sepsis. I reviewed the CT images with Dr. Fonseca of radiology. The appendix appears normal. The kidneys appear normal and do not indicate pyelonephritis. There is quite a bit of inflammation in the pelvis. There is no indication for surgical intervention at this time. She does not appear to have appendicitis or any other acute gastrointestinal surgical problem. Would continue to treat with IV antibiotics. Khari Chavarria MD Jan 13, 2017 13:33
[2017-01-13] MEDS: AMPICILLIN INJ 2,000 MG in SODIUM CHLORIDE 0.9% INJ 100 ML IV SCH ×3 (13:40→23:20)
[2017-01-13] MEDS: GENTAMICIN INJ 275 MG in SODIUM CHLORIDE 0.9% INJ 100 ML IV SCH (16:46)
--- NOTE | 2017-01-13 17:22 | HHI.PR ---
CONSTRUCTION JOB TITLES Note Note Re-evaluated patient. BP stable. Clinically well. Abdominal exam soft, diffusely tender to palpation, voluntary guarding (but not involuntary guarding ) present. No rebound. Last Impressions Pelvis Ultrasound 01/13/17 0000 Signed Impressions: Service Date/Time: Friday, January 13, 2017 08:56 - CONCLUSION: 1. The uterus and left ovary appear unremarkable. 2. The right ovary demonstrates complex hypoechoic cystic areas as well as apparent dilated tubular structure which could represent hydrosalpinx. 3. Small to moderate amount of free fluid in the pelvis. Justin Sy MD Abdomen/Pelvis CT 01/12/17 0000 Signed Impressions: Service Date/Time: Thursday, January 12, 2017 18:45 - CONCLUSION: 1. Multiple loops of unopacified bowel and cystic areas surrounding the uterus as well as a small amount of free fluid in the cul-de-sac. The ovaries are not well-visualized. These findings are nonspecific and could indicate pelvic inflammatory change or possible cysts in the ovaries. 2. Nonobstructive bowel gas pattern. Justin Sy MD A/P US suggestive of hydrosalpinx (images reviewed by Dr. Senior and myself) Continue antibiotics (amp, gent, clinda) for presumptive PID and possible UTI If surgical abdomen develops, gen surg following and would likely perform ex lap or laparoscopy keziaw Sin Brownlee MD R2 Jan 13, 2017 17:22
[2017-01-14] VITALS (8 sets, daily range): BP systolic 101–113; BP diastolic 54–75; PULSE 63–83; RESP 18–20; TEMP 98–100.2; O2SAT 98–100
[2017-01-14] MEDS: ACETAMINOPHEN/HYDROcodone 325 MG/10 MG TAB PO PRN ×3 (04:37→19:24)
[2017-01-14] MEDS: CLINDAMYCIN INJ 900 MG in SODIUM CHLORIDE 0.9% INJ 100 ML IV SCH ×3 (04:37→21:11)
[2017-01-14] MEDS: ONDANSETRON HCL 4 MG/2 ML VIAL IV PUSH PRN ×2 (04:43→15:05)
[2017-01-14] MEDS: SODIUM CHLOR 0.9% 1000 ML INJ 1,000 ML IV SCH ×3 (06:06→19:55)
[2017-01-14] MEDS: AMPICILLIN INJ 2,000 MG in SODIUM CHLORIDE 0.9% INJ 100 ML IV SCH ×3 (06:06→18:28)
[2017-01-14] MEDS: POLYETHYLENE GLYCOL 17 GM PKG PO SCH ×2 (09:58→09:59)
[2017-01-14 10:06] LABS: AUTOMATED NEUTROPHIL # 9.2 TH/MM3 (1.8-7.7); BASOPHIL % 0.2 % (0.0-2.0); EOSINOPHIL % 0.2 % (0.0-4.0); HEMATOCRIT 31.9 % (35.0-46.0); HEMOGLOBIN 10.6 GM/DL (11.6-15.3); LYMPH % 17.1 % (9.0-44.0); LYMPHOCYTE # 2.1 TH/MM3 (1.0-4.8); MEAN CELL VOLUME 85.2 FL (80.0-100.0); MEAN CORPUSCULAR HEMOGLOBIN 28.3 PG (27.0-34.0); MEAN CORPUSCULAR HGB CONC 33.2 % (32.0-36.0); MEAN PLATELET VOLUME 8.4 FL (7.0-11.0); MONO % 6.7 % (0.0-8.0); MONOCYTE # 0.8 TH/MM3 (0-0.9); NEUT % 75.8 % (16.0-70.0); PLATELET COUNT 155 TH/MM3 (150-450); RED BLOOD COUNT 3.74 MIL/MM3 (4.00-5.30); RED CELL DISTRIBUTION WIDTH 13.6 % (11.6-17.2); WHITE BLOOD COUNT 12.1 TH/MM3 (4.0-11.0)
[2017-01-14] MEDS: HYDROmorphone HCL PF 1 MG/ML VIAL IV PUSH PRN ×3 (10:34→21:17)
[2017-01-14] MEDS: SODIUM CHLORIDE 0.9% FLUSH 10 ML FLUSH IV FLUSH SCH ×2 (10:35→21:00)
[2017-01-14 11:45] LABS: BICARBONATE 20.4 MEQ/L (21.0-32.0); CALCIUM 7.8 MG/DL (8.5-10.1); CREATININE 0.67 MG/DL (0.50-1.00)
--- NOTE | 2017-01-14 13:29 | HHI.PR ---
Subjective Subjective Notes States she still has pain in abdomen and back. Objective Vitals/I&O Vital Signs Date Time Temp Pulse Resp B/P (MAP) Pulse Ox O2 Delivery O2 Flow Rate FiO2 01/14/17 11:45 98.0 83 18 110/62 (78) 100 01/12/17 20:37 21 01/12/17 20:13 Room Air Labs Laboratory Tests Test 01/14/17 09:25 White Blood Count 12.1 Red Blood Count 3.74 Hemoglobin 10.6 Hematocrit 31.9 Mean Corpuscular Volume 85.2 Mean Corpuscular Hemoglobin 28.3 Mean Corpuscular Hemoglobin Concent 33.2 Red Cell Distribution Width 13.6 Platelet Count 155 Mean Platelet Volume 8.4 Neutrophils (%) (Auto) 75.8 Lymphocytes (%) (Auto) 17.1 Monocytes (%) (Auto) 6.7 Eosinophils (%) (Auto) 0.2 Basophils (%) (Auto) 0.2 Neutrophils # (Auto) 9.2 Lymphocytes # (Auto) 2.1 Monocytes # (Auto) 0.8 Eosinophils # (Auto) 0.0 Basophils # (Auto) 0.0 CBC Comment DIFF FINAL Differential Comment Blood Urea Nitrogen 3 Creatinine 0.67 Random Glucose 59 Calcium Level 7.8 Sodium Level 138 Potassium Level 4.0 Chloride Level 107 Carbon Dioxide Level 20.4 Anion Gap 11 Estimat Glomerular Filtration Rate 129 Date/Time Source Procedure Growth Status 01/12/17 17:05 Blood Peripheral Aerobic Blood Culture - Preliminary NO GROWTH IN 2 DAYS Resulted 01/12/17 17:05 Blood Peripheral Anaerobic Blood Culture - Preliminary NO GROWTH IN 2 DAYS Resulted 01/12/17 16:22 Urine Clean Catch Urine Culture - Final 50-100,000 CFU/ML MIXED GRAM POSITIVE... Complete Radiology Last Impressions Pelvis Ultrasound 01/13/17 0000 Signed Impressions: Service Date/Time: Friday, January 13, 2017 08:56 - CONCLUSION: 1. The uterus and left ovary appear unremarkable. 2. The right ovary demonstrates complex hypoechoic cystic areas as well as apparent dilated tubular structure which could represent hydrosalpinx. 3. Small to moderate amount of free fluid in the pelvis. Justin Sy MD Abdomen/Pelvis CT 01/12/17 0000 Signed Impressions: Service Date/Time: Thursday, January 12, 2017 18:45 - CONCLUSION: 1. Multiple loops of unopacified bowel and cystic areas surrounding the uterus as well as a small amount of free fluid in the cul-de-sac. The ovaries are not well-visualized. These findings are nonspecific and could indicate pelvic inflammatory change or possible cysts in the ovaries. 2. Nonobstructive bowel gas pattern. Justin Sy MD Narrative Exam Appears more comfortable today. Abd: mild- mod diffuse ttp, no rebound. Improved. A/P Assessment and Plan 26 yo F abdominal and pelvic pain and leukocytosis. WBC improving. Her exam is much better today. I will sign off and be available as needed. Khari Chavarria MD Jan 14, 2017 13:29
--- NOTE | 2017-01-14 14:31 | HHI.FPPN ---
Subjective Remarks No acute events overnight. Tmax 100.2 past 24 hours. BPs ranging 90s-110s/50s- 60s. Patient states overall she feels about the same since admission. She denies any fevers, chills, or night sweats. She continues to report vague and diffuse abdominal pain. She is unsure if it is related to meals. She denies dysuria or hematuria. (Madhav Johnson MD R2) Objective Vitals Vital Signs Date Time Temp Pulse Resp B/P (MAP) Pulse Ox O2 Delivery O2 Flow Rate FiO2 01/14/17 11:45 98.0 83 18 110/62 (78) 100 01/14/17 08:00 98.5 67 18 104/54 (71) 99 01/14/17 06:04 99.5 01/14/17 04:00 100.2 80 20 101/57 (72) 100 01/14/17 00:00 99.6 78 18 106/63 (77) 99 01/13/17 20:00 100.2 65 18 117/57 (77) 100 01/13/17 17:02 97.5 68 16 98/55 (69) 99 01/13/17 16:29 98 I/O 01/13/17 01/13/17 01/13/17 01/14/17 01/14/17 01/14/17 07:00 15:00 23:00 07:00 15:00 23:00 Intake Total 1962 ml 826 ml 1206 ml Output Total 100 ml Balance 1962 ml 726 ml 1206 ml Intake Oral 720 ml IV Total 1962 ml 106 ml 1206 ml Output Urine Total 100 ml # Voids 4 (Madhav Johnson MD R2) Result Diagram: 01/14/1792401/14/17924 Objective Remarks GENERAL: Appears to be in some distress secondary to abdominal pain, lying flat in bed SKIN: No rashes, ecchymoses or lesions. Cool and dry. HEAD: Atraumatic. Normocephalic. EYES: Extraocular motions intact. No scleral icterus. No injection or drainage. ENT: Moist mucous membranes. Airway patent. NECK: Trachea midline. No JVD. Supple, nontender, no meningeal signs. CARDIOVASCULAR: Normal S1 and S2. Regular rate and rhythm without murmurs, gallops, or rubs. RESPIRATORY: Clear to auscultation bilaterally. No wheezes, rales, or rhonchi. GASTROINTESTINAL: Abdomen soft, diffusely tenderness to palpation more significant in mid upper quadrant, nondistended. Normal bowel sounds. No hepato- splenomegaly, or palpable masses. Voluntary guarding, no rebound or involuntary guarding. MUSCULOSKELETAL: Extremities without clubbing, cyanosis, or edema. NEUROLOGICAL: Awake and alert. Cranial nerves grossly intact. Motor and sensory grossly within normal limits. Normal speech. (Madhav Johnson MD R2) A/P Assessment and Plan Patient is a 26-year-old female presented to the ED with 1 day hx of severe pelvic pain radiating to back and legs and admitted with sepsis presumed to be due to PID versus UTI. (Madhav Johnson MD R2) Attending Attestation Patient seen and examined. Case reviewed and discussed with the resident team. Agree with plan of care as discussed with me and documented in the resident note. she stated she felt the same but was obviously moving around more comfortably in bed. she does appear improved from admission (Pat Swenson MD) Problem List: (1) Sepsis ICD Codes: A41.9 - Sepsis, unspecified organism Status: Acute Plan: Pt admitted for sepsis 2/2 to PID versus urinary source. Other DDx include ectopic , ovarian cyst or pelvic abscess. Ectopic ruled out given normal Beta HCG. - Abdomen/pelvic CT from :31: Multiple loops of unopacified bowel and cystic areas surrounding the uterus as well as a small amount of free fluid in the cul- de-sac. The ovaries are not well-visualized. These findings are nonspecific and could indicate pelvic inflammatory change or possible cysts in the ovaries.Nonobstructive bowel gas pattern. Kidneys are normal in size and shape. There is no mass, stone or hydronephrosis - Lactic acid within normal limits - Wet prep negative - Gonorrhea and chlamydia negative - Continue IV ampicillin, gentamicin, clindamycin - Consider de-escalation of IV antibiotics if continuing to improve clinically and leukocytosis continues to resolve. Would consider doxycycline PO - Continue [place] as needed for pain, Dilaudid 1 mg IV q4h prn breakthrough - Continue normal saline at 150 cc/hr - PRE KINDERGARTEN TEACHER consulted, appreciate recommendations - Transvaginal ultrasound showing uterus and left ovary appearing unremarkable. Right ovary demonstrating complex hypoechoic cystic areas as well as apparent dilated tubular structure which could represent hydrosalpinx. Small to moderate amount of free fluid in the pelvis. - General surgery consulted, appreciate recs. Recommending continuing medical management at this time. Will reconsult if needed. - Leukocytosis resolving - Blood culture no growth after 2 days - Urine culture with likely contaminants - Clinically does appear to be improved on exam - Will continue to monitor clinical status (2) Nutrition, metabolism, and development symptoms ICD Codes: R63.8 - Other symptoms and signs concerning food and fluid intake Plan: Fluids: NS at 150 cc/hr Electrolytes: WNL, replete as needed Nutrition: regular diet DVT ppx: b/l SCDs Miralax 17 gm daily for constipation (Madhav Johnson MD R2) Problem Qualifiers (1) Sepsis: Qualified Codes: A41.9 - Sepsis, unspecified organism Madhav Johnson MD R2 Jan 14, 2017 14:31 Pat Swenson MD Jan 15, 2017 15:41
[2017-01-14] MEDS: GENTAMICIN INJ 275 MG in SODIUM CHLORIDE 0.9% INJ 100 ML IV SCH (17:27)
[2017-01-15] MEDS: SODIUM CHLOR 0.9% 1000 ML INJ 1,000 ML IV SCH ×3 (00:06→15:55)
[2017-01-15] MEDS: AMPICILLIN INJ 2,000 MG in SODIUM CHLORIDE 0.9% INJ 100 ML IV SCH ×4 (00:06→18:00)
[2017-01-15] MEDS: ACETAMINOPHEN/HYDROcodone 325 MG/10 MG TAB PO PRN (02:18)
[2017-01-15 04:00] VITALS: BP 106/56; PULSE 66; RESP 18; TEMP 98; O2SAT 98
[2017-01-15] MEDS: HYDROmorphone HCL PF 1 MG/ML VIAL IV PUSH PRN ×3 (04:16→18:11)
[2017-01-15] MEDS: CLINDAMYCIN INJ 900 MG in SODIUM CHLORIDE 0.9% INJ 100 ML IV SCH ×3 (05:08→20:31)
[2017-01-15] MEDS: SODIUM CHLORIDE 0.9% FLUSH 10 ML FLUSH IV FLUSH SCH ×2 (07:45→20:31)
[2017-01-15] MEDS: ONDANSETRON HCL 4 MG/2 ML VIAL IV PUSH PRN (07:45)
[2017-01-15 07:54] VITALS: BP 129/63; PULSE 74; RESP 18; TEMP 98.3; O2SAT 99
[2017-01-15 08:03] LABS: AUTOMATED NEUTROPHIL # 7.1 TH/MM3 (1.8-7.7); BASOPHIL % 0.2 % (0.0-2.0); EOSINOPHIL # 0.1 TH/MM3 (0-0.4); EOSINOPHIL % 0.6 % (0.0-4.0); HEMATOCRIT 31.9 % (35.0-46.0); HEMOGLOBIN 10.5 GM/DL (11.6-15.3); LYMPH % 19.8 % (9.0-44.0); MEAN CELL VOLUME 85.3 FL (80.0-100.0); MEAN CORPUSCULAR HGB CONC 32.8 % (32.0-36.0); MONO % 8.5 % (0.0-8.0); MONOCYTE # 0.8 TH/MM3 (0-0.9); NEUT % 70.9 % (16.0-70.0); PLATELET COUNT 185 TH/MM3 (150-450); RED BLOOD COUNT 3.74 MIL/MM3 (4.00-5.30); RED CELL DISTRIBUTION WIDTH 13.5 % (11.6-17.2); WHITE BLOOD COUNT 9.9 TH/MM3 (4.0-11.0)
[2017-01-15 08:22] LABS: BICARBONATE 19.7 MEQ/L (21.0-32.0); CREATININE 0.54 MG/DL (0.50-1.00)
[2017-01-15] MEDS: POLYETHYLENE GLYCOL 17 GM PKG PO SCH (09:00)
[2017-01-15 10:01] VITALS: O2SAT 97
[2017-01-15 12:00] VITALS: BP 111/71; PULSE 60; RESP 18; TEMP 99.4; O2SAT 99
[2017-01-15] MEDS ORDERED: PROMETHAZINE HCL 25 MG TAB PO PRN (12:15)
[2017-01-15] MEDS: ONDANSETRON HCL 4 MG/2 ML VIAL IV PUSH SCH ×2 (13:55→18:00)
--- NOTE | 2017-01-15 15:06 | HHI.PR ---
INCLUSION PARAEDUCATOR Note Note Subjective Re-evaluated patient. BP stable. Afebrile > 24 hours. Still has back pain but less abdominal pain. +N/V. Objective Abdominal exam soft, diffusely tender to palpation, voluntary guarding (but not involuntary guarding) present. No rebound. Last Impressions Pelvis Ultrasound 01/13/17 0000 Signed Impressions: Service Date/Time: Friday, January 13, 2017 08:56 - CONCLUSION: 1. The uterus and left ovary appear unremarkable. 2. The right ovary demonstrates complex hypoechoic cystic areas as well as apparent dilated tubular structure which could represent hydrosalpinx. 3. Small to moderate amount of free fluid in the pelvis. Justin Sy MD Abdomen/Pelvis CT 01/12/17 0000 Signed Impressions: Service Date/Time: Thursday, January 12, 2017 18:45 - CONCLUSION: 1. Multiple loops of unopacified bowel and cystic areas surrounding the uterus as well as a small amount of free fluid in the cul-de-sac. The ovaries are not well-visualized. These findings are nonspecific and could indicate pelvic inflammatory change or possible cysts in the ovaries. 2. Nonobstructive bowel gas pattern. Justin Sy MD A/P US suggestive of hydrosalpinx (images reviewed by Dr. Senior and myself) Clinically improving with medical management Continue antibiotics (amp, gent, clinda) for presumptive PID while in hospital When stable for discharge per primary team, recommend doxycycline 100 mg PO BID x7 days INCLUSION PARAEDUCATOR to sign off, please re-consult if needed. Thank you for the opportunity to assist in the care of Ms. Suresh. Sin Bernardo Dr., MD R2 Jan 15, 2017 15:06
--- NOTE | 2017-01-15 15:06 | HHI.PR ---
ASSEMBLY LINE LEADER Note Note Subjective Re-evaluated patient. BP stable. Afebrile > 24 hours. Still has back pain but less abdominal pain. +N/V. Objective Abdominal exam soft, diffusely tender to palpation, voluntary guarding (but not involuntary guarding) present. No rebound. Last Impressions Pelvis Ultrasound 01/13/17 0000 Signed Impressions: Service Date/Time: Friday, January 13, 2017 08:56 - CONCLUSION: 1. The uterus and left ovary appear unremarkable. 2. The right ovary demonstrates complex hypoechoic cystic areas as well as apparent dilated tubular structure which could represent hydrosalpinx. 3. Small to moderate amount of free fluid in the pelvis. Justin Sy MD Abdomen/Pelvis CT 01/12/17 0000 Signed Impressions: Service Date/Time: Thursday, January 12, 2017 18:45 - CONCLUSION: 1. Multiple loops of unopacified bowel and cystic areas surrounding the uterus as well as a small amount of free fluid in the cul-de-sac. The ovaries are not well-visualized. These findings are nonspecific and could indicate pelvic inflammatory change or possible cysts in the ovaries. 2. Nonobstructive bowel gas pattern. Justin Sy MD A/P US suggestive of hydrosalpinx (images reviewed by Dr. Senior and myself) Clinically improving with medical management Continue antibiotics (amp, gent, clinda) for presumptive PID while in hospital When stable for discharge per primary team, recommend doxycycline 100 mg PO BID x7 days ASSEMBLY LINE LEADER to sign off, please re-consult if needed. Thank you for the opportunity to assist in the care of Ms. Suresh. Sin Bernardo Dr., MD R2 Jan 15, 2017 15:06
[2017-01-15 15:38] VITALS: BP 118/67; PULSE 61; RESP 18; TEMP 99.1; O2SAT 99
[2017-01-15] MEDS: GENTAMICIN INJ 275 MG in SODIUM CHLORIDE 0.9% INJ 100 ML IV SCH (16:43)
--- NOTE | 2017-01-15 17:07 | HHI.FPPN ---
Subjective Remarks Vitals stable overnight. Patient complains of nausea and vomiting. Denies diarrhea. No other acute complaints. Objective Vitals Vital Signs Date Time Temp Pulse Resp B/P (MAP) Pulse Ox O2 Delivery O2 Flow Rate FiO2 01/15/17 15:38 99.1 61 18 118/67 (84) 99 01/15/17 12:00 99.4 60 18 111/71 (84) 99 01/15/17 10:01 97 01/15/17 07:54 98.3 74 18 129/63 (85) 99 01/15/17 04:00 98.0 66 18 106/56 (73) 98 01/14/17 22:09 98 01/14/17 20:00 99.2 68 18 113/75 (88) 98 I/O 01/14/17 01/14/17 01/14/17 01/15/17 01/15/17 01/15/17 07:00 15:00 23:00 07:00 15:00 23:00 Intake Total 1206 ml 200 ml 1600 ml 100 ml 106 ml Balance 1206 ml 200 ml 1600 ml 100 ml 106 ml IV Total 1206 ml 200 ml 1600 ml 100 ml 106 ml # Voids 4 5 Result Diagram: 01/15/1735 01/15/17 0635 Objective Remarks GENERAL: Appears sleepy, lying flat in bed. Start to gag and say she needs to vomit during exam. HEAD: Atraumatic. Normocephalic. EYES: Extraocular motions intact. No scleral icterus. No injection or drainage. CARDIOVASCULAR: Normal S1 and S2. Regular rate and rhythm without murmurs, gallops, or rubs. RESPIRATORY: Clear to auscultation bilaterally. No wheezes, rales, or rhonchi. GASTROINTESTINAL: deferred due to patient vomiting MUSCULOSKELETAL: Extremities without clubbing, cyanosis, or edema. NEUROLOGICAL: Awake and alert. Cranial nerves grossly intact. Motor and sensory grossly within normal limits. Normal speech. A/P Assessment and Plan Patient is a 26-year-old female presented to the ED with 1 day hx of severe pelvic pain radiating to back and legs and admitted with sepsis presumed to be due to PID versus UTI. Discharge Planning D/C tomorrow if clinical stable Problem List: (1) Sepsis ICD Codes: A41.9 - Sepsis, unspecified organism Status: Acute Plan: Pt admitted for sepsis 2/2 to PID versus urinary source. Other DDx include ectopic , ovarian cyst or pelvic abscess. Ectopic ruled out given normal Beta HCG. - Continue IV ampicillin Day 3, gentamicin and clindamycin Day 4 - Continue [place] as needed for pain, Dilaudid 1 mg IV q4h prn breakthrough - Continue normal saline at 150 cc/hr - HOSPITAL TELEVISION RENTAL CLERK consulted, appreciate recommendations - Clinically does appear to be improved on exam - Will continue to monitor clinical status (2) Vomiting ICD Codes: R11.10 - Vomiting, unspecified Status: Resolved Plan: Possibly due to effect of antibiotics v pain medication (dilaudid and norco) - Zofran Q6H scheduled - Phenergan 12.5 PO Q6H - Switch regular diet to clear liquids (3) Nutrition, metabolism, and development symptoms ICD Codes: R63.8 - Other symptoms and signs concerning food and fluid intake Plan: Fluids: NS at 150 cc/hr Electrolytes: WNL, replete as needed Nutrition: Clear liquid diet DVT ppx: b/l SCDs Miralax 17 gm daily for constipation Problem Qualifiers (1) Sepsis: Qualified Codes: A41.9 - Sepsis, unspecified organism Guillermina Lopez MD R1 Jan 15, 2017 17:07
[2017-01-15 19:57] VITALS: BP 111/68; PULSE 64; RESP 18; TEMP 99.5; O2SAT 99
[2017-01-16] VITALS: BP 122/71; PULSE 62; RESP 18; TEMP 100; TEMP 99; O2SAT 99
[2017-01-16] MEDS ORDERED: ACETAMINOPHEN 325 MG TAB PO PRN
[2017-01-16] MEDS: ONDANSETRON HCL 4 MG/2 ML VIAL IV PUSH SCH ×3 (00:02→12:07)
[2017-01-16] MEDS: HYDROmorphone HCL PF 1 MG/ML VIAL IV PUSH PRN ×3 (00:03→12:07)
[2017-01-16] MEDS: AMPICILLIN INJ 2,000 MG in SODIUM CHLORIDE 0.9% INJ 100 ML IV SCH ×3 (00:03→11:53)
[2017-01-16] MEDS: SODIUM CHLOR 0.9% 1000 ML INJ 1,000 ML IV SCH ×3 (00:03→12:17)
[2017-01-16 04:00] VITALS: BP 110/65; PULSE 61; RESP 18; TEMP 99.1; O2SAT 99
[2017-01-16] MEDS: CLINDAMYCIN INJ 900 MG in SODIUM CHLORIDE 0.9% INJ 100 ML IV SCH ×2 (04:56→13:00)
[2017-01-16 08:00] VITALS: BP 110/69; PULSE 67; RESP 20; TEMP 98.3; O2SAT 100
--- NOTE | 2017-01-16 08:25 | HHI.PR ---
STORE SALES MANAGER Note Note Pt reports feeling better. Abdominal and back pain have both improved. She is ambulating, voiding. BM this morning. No fevers or chills. She still has some nausea and occasional vomiting. Pt remains afebrile. Leukocytosis has resolved and WCC was 9.9 01-15-2017 O: afebrile, VSS 99.1, 61b/min/18/110/65. Abd: soft, slighly distended, BS +, mild generalized tenderness, no guarding , no rebound. LE, non-tender. A/Plan: 26 yo with PID with right sided hydrosalphinx. Improving clinically and per labs. Still with nausea and vomiting. Recommend IV antibiotics until able to tolerate PO. Recommend switch to Doxycycline 100mg po for 14 days and Flagyl 500mg PO TID for 7 weeks after IV antibiotics completed. We will sign off. Thanks for consult Everett Sanchez MD Jan 16, 2017 08:25
[2017-01-16] MEDS: SODIUM CHLORIDE 0.9% FLUSH 10 ML FLUSH IV FLUSH SCH (08:42)
[2017-01-16] MEDS: POLYETHYLENE GLYCOL 17 GM PKG PO SCH (08:42)
--- NOTE | 2017-01-16 11:04 | HHI.FPPN ---
Subjective Remarks No acute events overnight. Afebrile, vitals stable. Patient states she feels much improved overall. She denies any abdominal or pelvic pain this AM. Denies fevers or chills, CP, SOB, cough, pain in legs. Tolerating diet without N/V. No issues ambulating. Objective Vitals Vital Signs Date Time Temp Pulse Resp B/P (MAP) Pulse Ox O2 Delivery O2 Flow Rate FiO2 01/16/17 08:00 98.3 67 20 110/69 (83) 100 01/16/17 04:00 99.1 61 18 110/65 (80) 99 01/16/17 00:00 99.0 62 18 122/71 (88) 99 01/15/17 19:57 99.5 64 18 111/68 (82) 99 01/15/17 15:38 99.1 61 18 118/67 (84) 99 01/15/17 12:00 99.4 60 18 111/71 (84) 99 I/O 01/15/17 01/15/17 01/15/17 01/16/17 01/16/17 01/16/17 07:00 15:00 23:00 07:00 15:00 23:00 Intake Total 1600 ml 100 ml 412 ml 306 ml Balance 1600 ml 100 ml 412 ml 306 ml IV Total 1600 ml 100 ml 412 ml 306 ml # Voids 5 3 4 Result Diagram: 01/15/1735 01/15/17 0635 Objective Remarks GENERAL: NAD HEAD: Atraumatic. Normocephalic. EYES: Extraocular motions intact. No scleral icterus. No injection or drainage. CARDIOVASCULAR: Normal S1 and S2. Regular rate and rhythm without murmurs, gallops, or rubs. RESPIRATORY: Clear to auscultation bilaterally. No wheezes, rales, or rhonchi. GASTROINTESTINAL: soft, nontender throughout, nondistended, +BS. No guarding. No rebound tenderness. No masses. MUSCULOSKELETAL: Extremities without clubbing, cyanosis, or edema. NEUROLOGICAL: Awake and alert. Cranial nerves grossly intact. Motor and sensory grossly within normal limits. Normal speech. A/P Assessment and Plan Patient is a 26-year-old female presented to the ED with 1 day hx of severe pelvic pain radiating to back and legs and admitted with sepsis presumed to be due to PID versus UTI. Discharge Planning Stable for discharge today Advised outpatient follow up with PCP Problem List: (1) Sepsis ICD Codes: A41.9 - Sepsis, unspecified organism Status: Resolved Plan: Pt admitted for sepsis 2/2 to PID versus urinary source. Other DDx include ectopic , ovarian cyst or pelvic abscess. Ectopic ruled out given normal Beta HCG. - Discontinue IV ampicillin, gentamicin and clindamycin - [facility] consulted - Per [employer] recommendations, will discharge patient with PO doxycycline 100 mg po BID x 14 days and Flagyl 500 mg po TID for 7 days - Abdomen exam benign (2) Vomiting ICD Codes: R11.10 - Vomiting, unspecified Status: Resolved Plan: Resolved - Zofran as needed for N/V (3) Nutrition, metabolism, and development symptoms ICD Codes: R63.8 - Other symptoms and signs concerning food and fluid intake Plan: Fluids: PO Electrolytes: WNL 01/15 Nutrition: Clear liquid diet DVT ppx: b/l SCDs Miralax 17 gm daily for constipation Problem Qualifiers (1) Sepsis: Qualified Codes: A41.9 - Sepsis, unspecified organism Madhav Johnson MD R2 Jan 16, 2017 11:04
--- NOTE | 2017-01-16 12:41 | HHI.DCPOC ---
Discharge Care Plan Diagnosis: (1) Pelvic inflammatory disease (2) Sepsis Goals to Promote Your Health * To prevent worsening of your condition and complications, follow up with a primary care physician within one week after hospital discharge. Directions to Meet Your Goals Take your medications as prescribed Follow your dietary instruction Follow activity as directed Keep your appointments as scheduled Take your immunizations and boosters as scheduled If your symptoms worsen call your PCP, if no PCP go to Urgent Care Center or Emergency Room Smoking is Dangerous to Your Health. Avoid second hand smoke Call the 24-hour hour crisis hotline for domestic abuse at Madhav Johnson MD R2 Jan 16, 2017 12:41
--- NOTE | 2017-01-16 12:41 | HHI.DCPOC ---
Discharge Care Plan Diagnosis: (1) Pelvic inflammatory disease (2) Sepsis Goals to Promote Your Health * To prevent worsening of your condition and complications, follow up with a primary care physician within one week after hospital discharge. Directions to Meet Your Goals Take your medications as prescribed Follow your dietary instruction Follow activity as directed Keep your appointments as scheduled Take your immunizations and boosters as scheduled If your symptoms worsen call your PCP, if no PCP go to Urgent Care Center or Emergency Room Smoking is Dangerous to Your Health. Avoid second hand smoke Call the 24-hour hour crisis hotline for domestic abuse at Madhav Johnson MD R2 Jan 16, 2017 12:41
--- NOTE | 2017-01-16 12:41 | HHI.DCPOC ---
Discharge Care Plan Diagnosis: (1) Pelvic inflammatory disease (2) Sepsis Goals to Promote Your Health * To prevent worsening of your condition and complications, follow up with a primary care physician within one week after hospital discharge. Directions to Meet Your Goals Take your medications as prescribed Follow your dietary instruction Follow activity as directed Keep your appointments as scheduled Take your immunizations and boosters as scheduled If your symptoms worsen call your PCP, if no PCP go to Urgent Care Center or Emergency Room Smoking is Dangerous to Your Health. Avoid second hand smoke Call the 24-hour hour crisis hotline for domestic abuse at Madhav Johnson MD R2 Jan 16, 2017 12:41
[2017-01-16] MEDS ORDERED: METR-1 PO (12:43)
[2017-01-16] MEDS ORDERED: DOXY100C PO (12:43)
[2017-01-16] MEDS ORDERED: PERI8.6T PO (12:50)
[2017-01-16] MEDS ORDERED: ZOFR4TAB3 SL (12:50)
[2017-01-16 13:03] VITALS: BP 113/70; PULSE 65; RESP 20; TEMP 99.1; O2SAT 100
[2017-01-16 16:35] LABS: AUTOMATED NEUTROPHIL # 5.9 TH/MM3 (1.8-7.7); BASOPHIL % 0.4 % (0.0-2.0); EOSINOPHIL % 0.6 % (0.0-4.0); HEMATOCRIT 33.2 % (35.0-46.0); HEMOGLOBIN 11.2 GM/DL (11.6-15.3); LYMPH % 23.3 % (9.0-44.0); MEAN CELL VOLUME 83.8 FL (80.0-100.0); MEAN CORPUSCULAR HEMOGLOBIN 28.4 PG (27.0-34.0); MEAN CORPUSCULAR HGB CONC 33.9 % (32.0-36.0); MEAN PLATELET VOLUME 8.4 FL (7.0-11.0); MONO % 6.8 % (0.0-8.0); MONOCYTE # 0.6 TH/MM3 (0-0.9); NEUT % 68.9 % (16.0-70.0); PLATELET COUNT 240 TH/MM3 (150-450); RED BLOOD COUNT 3.96 MIL/MM3 (4.00-5.30); RED CELL DISTRIBUTION WIDTH 13.4 % (11.6-17.2); WHITE BLOOD COUNT 8.5 TH/MM3 (4.0-11.0)
[2017-01-17] MEDS ORDERED: PROM25TA10 PO (13:18)
[2017-01-17] MEDS ORDERED: PROM2SUP RECTAL (13:18)
== END 2017-01-16 15:37 | disposition home or self-care (01) | DRG 872 ==
LOC: NEPD 15:40 → NEDA 20:05 → N05A 01-13 00:01
PROVIDERS: ADMIT Family Medicine; ATTEND Family Medicine
DX: A41.9 Sepsis, unspecified organism (principal); N39.0 Urinary tract infection, site not specified; R65.20 Severe sepsis without septic shock; K59.00 Constipation, unspecified; N73.9 Female pelvic inflammatory disease, unspecified; N70.11 Chronic salpingitis; F12.90 Cannabis use, unspecified, uncomplicated; Z86.14 Personal history of Methicillin resistant Staphylococcus aureus infection
CPT/HCPCS: 74177; 76830; 76856; 76937; 80048; 80053; 80307; 81001; 83605; 84702; 84703; 85025; 85652; 87040; 87086; 87210; 87491; 87591; 96361; 96365; 96375; J1170; J0290; J1580; J2270; J2405; J7030; Q9967

== ENCOUNTER 2017-01-17 10:47 | Emergency (ER) | payer SELFPAY ==
[~2017-01-17] VITALS: Ht 165.1 cm; Wt 61.5 kg
[~2017-01-17 10:47] MED LIST changes: -DIFL150T PO; +DOXY100C PO; -MACR100C2 PO; +PERI8.6T PO; +ZOFR4TAB3 SL
[2017-01-17 10:49] VITALS: BP 118/70; PULSE 94; RESP 18; TEMP 99.1; O2SAT 98
[2017-01-17] MEDS ORDERED: PROMETHAZINE HCL 25 MG TAB PO ONE (11:15)
[2017-01-17] MEDS ORDERED: SODIUM CHLOR 0.9% 1000 ML INJ 1,000 ML IV ONE (11:15)
--- NOTE | 2017-01-17 11:17 | PD ---
HPI Chief Complaint: GI Complaint Time Seen by Provider: 11:03 Travel History International Travel<30 days: No Contact w/Intl Traveler<30days: No Traveled to known affect area: No History of Present Illness HPI 26 year-old female presents to the emergency room for evaluation of nausea and vomiting. Patient was admitted to the hospital 5 days ago for PID and sepsis and got discharged yesterday. States while in the hospital IV antiemetics were helping but after she got home, the oral medications were not improving her symptoms. She was throwing up all throughout the night and all morning. Patient states she is extremely hungry but cannot eat. She reports abdominal pain from vomiting. She was prescribed Flagyl and doxycycline and has been taking them as prescribed but did not take them today. Patient denies fever, chills, or diarrhea. She states she typically smokes about 4-6 joints per day but has not smoked since being in the hospital on the . PFSH Past Medical History Blood Disorders: No Anxiety: No Depression: No Cancer: No Cardiovascular Problems: No Diminished Hearing: No Endocrine: No Gastrointestinal Disorders: No Genitourinary: No Immune Disorder: No Implanted Vascular Access Dvce: No Musculoskeletal: No Neurologic: No Psychiatric: No Reproductive: Yes (miscarriage (2014)) Respiratory: No Immunizations Current: Yes ?: Not LMP: DECEMBER 27, 2016 : 1 Para: 0 Miscarriage: 2 : 0 Past Surgical History Surgical History: No Previous Surgery Other Surgery: No Social History Alcohol Use: No Tobacco Use: No Substance Use: No Allergies-Medications (Allergen,Severity, Reaction): Coded Allergies: pineapple (Unverified Allergy, Severe, 01/17/17) Reported Meds & Prescriptions Reported Meds & Active Scripts Active Zofran Odt (Ondansetron Odt) 4 Mg Tab 4 Mg SL Q6HR PRN Flagyl (Metronidazole) 500 Mg Tab 500 Mg PO TID Doxycycline Hyclate 100 Mg Cap 100 Mg PO BID Review of Systems Except as stated in HPI: all other systems reviewed are Neg Physical Exam Narrative GENERAL: Well-nourished, well-developed female in no acute distress. Afebrile. Ambulatory. Moving easily on the bed. SKIN: Focused skin assessment warm/dry. HEAD: Normocephalic. EYES: No scleral icterus. No injection or drainage. NECK: Supple, trachea midline. No JVD or lymphadenopathy. CARDIOVASCULAR: Regular rate and rhythm without murmurs, gallops, or rubs. RESPIRATORY: Breath sounds equal bilaterally. No accessory muscle use. GASTROINTESTINAL: Abdomen soft, nondistended. Mild tenderness to palpation over the pelvic region. No peritoneal signs. No guarding. No rebound tenderness. Data Data Last Documented VS Vital Signs Date Time Temp Pulse Resp B/P (MAP) Pulse Ox O2 Delivery O2 Flow Rate FiO2 01/17/17 10:49 99.1 94 18 118/70 (86) 98 Orders Orders Complete Blood Count With Diff (01/17/17 11:08) Basic Metabolic Panel (Bmp) (01/17/17 11:08) Sodium Chlor 0.9% 1000 Ml Inj (Ns 1000 M (01/17/17 11:15) Promethazine (Phenergan) (01/17/17 11:15) Ketorolac Inj (Toradol Inj) (01/17/17 11:45) Labs Laboratory Tests Test 01/17/17 11:20 White Blood Count 7.4 TH/MM3 Red Blood Count 4.35 MIL/MM3 Hemoglobin 12.6 GM/DL Hematocrit 36.2 % Mean Corpuscular Volume 83.2 FL Mean Corpuscular Hemoglobin 28.9 PG Mean Corpuscular Hemoglobin Concent 34.8 % Red Cell Distribution Width 13.3 % Platelet Count 285 TH/MM3 Mean Platelet Volume 7.7 FL Neutrophils (%) (Auto) 68.6 % Lymphocytes (%) (Auto) 21.7 % Monocytes (%) (Auto) 8.3 % Eosinophils (%) (Auto) 0.7 % Basophils (%) (Auto) 0.7 % Neutrophils # (Auto) 5.1 TH/MM3 Lymphocytes # (Auto) 1.6 TH/MM3 Monocytes # (Auto) 0.6 TH/MM3 Eosinophils # (Auto) 0.1 TH/MM3 Basophils # (Auto) 0.1 TH/MM3 CBC Comment DIFF FINAL Differential Comment Blood Urea Nitrogen 4 MG/DL Creatinine 0.78 MG/DL Random Glucose 94 MG/DL Calcium Level 8.8 MG/DL Sodium Level 140 MEQ/L Potassium Level 3.5 MEQ/L Chloride Level 107 MEQ/L Carbon Dioxide Level 23.6 MEQ/L Anion Gap 9 MEQ/L Estimat Glomerular Filtration Rate 108 ML/MIN [facility] Medical Decision Making Medical Screen Exam Complete: Yes Emergency Medical Condition: Yes Medical Record Reviewed: Yes Differential Diagnosis Cyclic vomiting syndrome, electrolyte abnormality, sepsis, abdominal pain Narrative Course 26-year-old female presents to the emergency room for evaluation of nausea and vomiting. Patient was discharged from the hospital yesterday after being admitted for 4 days for PID. Patient states since discharge she has been vomiting nonstop and through the night. Prescribe Zofran is not helping. Patient denies fever or chills. Reports abdominal pain from vomiting. She had CT abdomen and pelvis and pelvic ultrasound 4 days ago which showed no acute, surgical abnormalities. Beta hCG drawn 4 days ago was negative. Patient is well-appearing in the emergency room. Vital signs stable. Abdomen is soft, benign. There is mild tenderness to palpation of the pelvic region which is expected given patient's PID. She was prescribed doxycycline and Flagyl and took a dose last night but has not taken anything today. Patient reports frequent marijuana use and I suspect possible cyclic vomiting syndrome. She'll be given 1 L of fluids and oral Phenergan in the ED. She was counseled on marijuana cessation. CBC and BMP are unremarkable. Patient was given 1 L of fluids and oral Phenergan in the emergency room. She has been resting comfortably without any vomiting. She was able to drink a cup of Gatorade without difficulty. Patient will be discharged with prescriptions for oral and suppository Phenergan. Told not to take them at the same time. She understands and agrees to plan. Diagnosis Primary Impression: Vomiting Qualified Codes: G43.A0 - Cyclical vomiting, not intractable Referrals: Primary Care Physician Additional Instructions: Rest and drink plenty of fluids. Use oral Phenergan as directed, as needed for nausea. If you cannot handle oral medication, use suppository. Do not use them both at the same time. Continue doxycycline and Flagyl as directed, until gone. Do not drink alcohol while taking Flagyl. Follow-up with a primary care physician. Return to the emergency room for worsening symptoms. Med/Other Pt SpecificInfo: Prescription(s) given Scripts Promethazine (Phenergan) 25 Mg Tablet 25 MG PO ONCE for Nausea/Vomiting, #10 TAB 0 Refills Prov: Ryan Mcdermott MD 01/17/17 Promethazine Supp (Phenergan Supp) 12.5 Mg Supp 12.5 MG RECTAL Q6H Y for NAUSEA OR VOMITING, #12 SUPP 0 Refills Prov: Ryan Mcdermott MD 01/17/17 Disposition: 01 DISCHARGE HOME Condition: Stable Kelli Rodriguez Jan 17, 2017 11:17
[2017-01-17 11:38] LABS: AUTOMATED NEUTROPHIL # 5.1 TH/MM3 (1.8-7.7); BASOPHIL # 0.1 TH/MM3 (0-0.2); BASOPHIL % 0.7 % (0.0-2.0); EOSINOPHIL # 0.1 TH/MM3 (0-0.4); EOSINOPHIL % 0.7 % (0.0-4.0); HEMATOCRIT 36.2 % (35.0-46.0); HEMO FLAGS DIFF FINAL; LYMPH % 21.7 % (9.0-44.0); LYMPHOCYTE # 1.6 TH/MM3 (1.0-4.8); MEAN CELL VOLUME 83.2 FL (80.0-100.0); MEAN CORPUSCULAR HEMOGLOBIN 28.9 PG (27.0-34.0); MEAN CORPUSCULAR HGB CONC 34.8 % (32.0-36.0); MONO % 8.3 % (0.0-8.0); NEUT % 68.6 % (16.0-70.0); PLATELET COUNT 285 TH/MM3 (150-450); RED BLOOD COUNT 4.35 MIL/MM3 (4.00-5.30); RED CELL DISTRIBUTION WIDTH 13.3 % (11.6-17.2); WHITE BLOOD COUNT 7.4 TH/MM3 (4.0-11.0)
[2017-01-17] MEDS ORDERED: KETOROLAC TROMETHAMINE 30 MG/ML (IVP) VIAL IV PUSH ONE (11:45)
[2017-01-17 12:05] LABS: BICARBONATE 23.6 MEQ/L (21.0-32.0); POTASSIUM 3.5 MEQ/L (3.5-5.1)
[2017-01-17] MEDS ORDERED: PROM2SUP RECTAL (13:18)
[2017-01-17] MEDS ORDERED: PROM25TA10 PO (13:18)
[2017-01-17] MEDS: ACETAMINOPHEN/CODEINE 300 MG/30 MG TAB PO ONE ×2 (13:30→13:40)
--- NOTE | 2017-01-17 13:47 | PD ---
Physical Exam Date Seen by Provider: Jan 17, 2017 Time Seen by Provider: 12:30 Narrative I, Dr. Mcdermott, have reviewed the advance practice practitioner's documentation and am in agreement, met with the patient face to face, made the diagnosis, and the medical decision making was done by me. *My assessment and Findings: Patient seen and evaluated with PA, please see PA note for further details. Data Data Last Documented VS Vital Signs Date Time Temp Pulse Resp B/P (MAP) Pulse Ox O2 Delivery O2 Flow Rate FiO2 01/17/17 13:48 01/17/17 10:49 99.1 94 18 98 Orders Orders Complete Blood Count With Diff (01/17/17 11:08) Basic Metabolic Panel (Bmp) (01/17/17 11:08) Sodium Chlor 0.9% 1000 Ml Inj (Ns 1000 M (01/17/17 11:15) Promethazine (Phenergan) (01/17/17 11:15) Ketorolac Inj (Toradol Inj) (01/17/17 11:45) Acetamin-Codeine 300-30 Mg (Tylenol-Code (01/17/17 13:30) Ed Discharge Order (01/17/17 13:22) Labs Laboratory Tests Test 01/17/17 11:20 White Blood Count 7.4 TH/MM3 Red Blood Count 4.35 MIL/MM3 Hemoglobin 12.6 GM/DL Hematocrit 36.2 % Mean Corpuscular Volume 83.2 FL Mean Corpuscular Hemoglobin 28.9 PG Mean Corpuscular Hemoglobin Concent 34.8 % Red Cell Distribution Width 13.3 % Platelet Count 285 TH/MM3 Mean Platelet Volume 7.7 FL Neutrophils (%) (Auto) 68.6 % Lymphocytes (%) (Auto) 21.7 % Monocytes (%) (Auto) 8.3 % Eosinophils (%) (Auto) 0.7 % Basophils (%) (Auto) 0.7 % Neutrophils # (Auto) 5.1 TH/MM3 Lymphocytes # (Auto) 1.6 TH/MM3 Monocytes # (Auto) 0.6 TH/MM3 Eosinophils # (Auto) 0.1 TH/MM3 Basophils # (Auto) 0.1 TH/MM3 CBC Comment DIFF FINAL Differential Comment Blood Urea Nitrogen 4 MG/DL Creatinine 0.78 MG/DL Random Glucose 94 MG/DL Calcium Level 8.8 MG/DL Sodium Level 140 MEQ/L Potassium Level 3.5 MEQ/L Chloride Level 107 MEQ/L Carbon Dioxide Level 23.6 MEQ/L Anion Gap 9 MEQ/L Estimat Glomerular Filtration Rate 108 ML/MIN MDM Medical Record Reviewed: Yes Supervised Visit with KENJI: Yes Diagnosis Primary Impression: Vomiting Qualified Codes: G43.A0 - Cyclical vomiting, not intractable Referrals: Primary Care Physician Patient Instructions: General Instructions Departure Forms: Tests/Procedures Additional Instruction: Rest and drink plenty of fluids. Use oral Phenergan as directed, as needed for nausea. If you cannot handle oral medication, use suppository. Do not use them both at the same time. Continue doxycycline and Flagyl as directed, until gone. Do not drink alcohol while taking Flagyl. Follow-up with a primary care physician. Return to the emergency room for worsening symptoms. Scripts Promethazine (Phenergan) 25 Mg Tablet 25 MG PO ONCE for Nausea/Vomiting, #10 TAB 0 Refills Prov: Ryan Mcdermott MD 01/17/17 Promethazine Supp (Phenergan Supp) 12.5 Mg Supp 12.5 MG RECTAL Q6H Y for NAUSEA OR VOMITING, #12 SUPP 0 Refills Prov: Ryan Mcdermott MD 01/17/17 Disposition: 01 DISCHARGE HOME Condition: Stable Ryan Mcdermott MD Jan 17, 2017 13:47
== END 2017-01-17 14:26 | disposition home or self-care (01) ==
LOC: NEPC 10:47
DX: R11.2 Nausea with vomiting, unspecified (principal); R10.9 Unspecified abdominal pain; F12.90 Cannabis use, unspecified, uncomplicated; Z79.899 Other long term (current) drug therapy
CPT/HCPCS: 80048; 85025; 96361; 96374; 99284; J1885; J7030; Q0169

== ENCOUNTER 2017-01-18 18:14 | Emergency (ER) | payer SELFPAY ==
[~2017-01-18 18:14] MED LIST changes: -PERI8.6T PO; +PROM25TA10 PO; +PROM2SUP RECTAL
[2017-01-18 18:16] VITALS: BP 145/84; PULSE 98; RESP 14; TEMP 98.8; O2SAT 99
[2017-01-18 19:35] VITALS: BP 133/90; PULSE 72; RESP 18; O2SAT 98
[2017-01-18] MEDS ORDERED: ALUMINUM/MAGNESIUM/SIMETH 30 ML CUP PO ONE (19:45)
[2017-01-18] MEDS ORDERED: KETOROLAC TROMETHAMINE 30 MG/ML (IVP) VIAL IV PUSH ONE (19:45)
[2017-01-18] MEDS ORDERED: LIDOCAINE VISCOUS 2% SOLN 15 ML UDC PO ONE (19:45)
[2017-01-18] MEDS ORDERED: ONDANSETRON HCL 4 MG/2 ML VIAL IV PUSH ONE (19:45)
--- NOTE | 2017-01-18 19:45 | PD ---
HPI Chief Complaint: GI Complaint Time Seen by Provider: 19:28 Travel History International Travel<30 days: No Contact w/Intl Traveler<30days: No Traveled to known affect area: No History of Present Illness HPI 26-year-old female who was recently admitted to the hospital on 01/12/17 for PID and hydrosalpinx, discharged on 01/16/17 on Flagyl and doxycycline, return to the emergency department yesterday for evaluation of vomiting, returns today for evaluation of nausea, vomiting, and chest pain. The patient reports substernal chest pressure. She is very tearful. She is having some shortness of breath as well. No fevers. She states her abdominal pain has resolved. She does report several episodes of vomiting especially after taking her doxycycline and Flagyl. Chest pain is moderate to severe, constant, worse with movement, palpation, and inspiration. No known history of cardiac disease. No history of DVT or PE. PFSH Past Medical History Blood Disorders: No Anxiety: No Depression: No Cancer: No Cardiovascular Problems: No Diminished Hearing: No Endocrine: No Gastrointestinal Disorders: No Genitourinary: No Immune Disorder: No Implanted Vascular Access Dvce: No Musculoskeletal: No Neurologic: No Psychiatric: No Reproductive: Yes (miscarriage (2014)) Respiratory: No Immunizations Current: Yes Tetanus Vaccination: Unknown Influenza Vaccination: Yes ?: Unknown : 1 Para: 0 Miscarriage: 2 : 0 Past Surgical History Surgical History: No Previous Surgery Other Surgery: No Social History Alcohol Use: No Tobacco Use: No Substance Use: No Allergies-Medications (Allergen,Severity, Reaction): Coded Allergies: pineapple (Unverified Allergy, Severe, 01/17/17) Reported Meds & Prescriptions Reported Meds & Active Scripts Active Phenergan (Promethazine HCl) 25 Mg Tablet 25 Mg PO ONCE Phenergan Supp (Promethazine HCl) 12.5 Mg Supp 12.5 Mg RECTAL Q6H PRN Zofran Odt (Ondansetron Odt) 4 Mg Tab 4 Mg SL Q6HR PRN Flagyl (Metronidazole) 500 Mg Tab 500 Mg PO TID Doxycycline Hyclate 100 Mg Cap 100 Mg PO BID Review of Systems Except as stated in HPI: all other systems reviewed are Neg Physical Exam Narrative GENERAL: Well-developed, well-nourished, tearful, no apparent distress. SKIN: Focused skin assessment warm/dry. HEAD: Atraumatic. Normocephalic. EYES: Pupils equal and round. No scleral icterus. No injection or drainage. ENT: Mucous membranes pink and moist. NECK: Trachea midline. No JVD. CARDIOVASCULAR: Regular rate and rhythm. Distal pulses brisk and equal bilaterally. RESPIRATORY: No accessory muscle use. Clear to auscultation. Breath sounds equal bilaterally. GASTROINTESTINAL: Abdomen soft, non-tender, nondistended. MUSCULOSKELETAL: No obvious deformities. No clubbing. No cyanosis. No edema. NEUROLOGICAL: Awake and alert. No obvious cranial nerve deficits. Motor grossly within normal limits. Normal speech. PSYCHIATRIC: Crying. Appears anxious. Data Data Last Documented VS Vital Signs Date Time Temp Pulse Resp B/P (MAP) Pulse Ox O2 Delivery O2 Flow Rate FiO2 01/18/17 19:35 72 18 133/90 (104) 98 Nasal Cannula 2.00 01/18/17 18:16 98.8 Orders Orders Complete Blood Count With Diff (01/18/17 18:39) Comprehensive Metabolic Panel (01/18/17 18:39) Lipase (01/18/17 18:39) Prothrombin Time / Inr (Pt) (01/18/17 18:39) Act Partial Throm Time (Ptt) (01/18/17 18:39) Ed Urine Pregnancytest Poc (01/18/17 18:39) Ckmb (Isoenzyme) Profile (01/18/17 19:40) Troponin I (01/18/17 19:40) Chest, Single Ap (01/18/17 19:40) Ketorolac Inj (Toradol Inj) (01/18/17 19:45) Ondansetron Inj (Zofran Inj) (01/18/17 19:45) Al-Mag Hy-Si 40-40-4 Mg/Ml Liq (Mag-Al P (01/18/17 19:45) Lidocaine 2% Viscous (Xylocaine 2% Visco (01/18/17 19:45) Electrocardiogram (01/18/17 ) CKMB (01/18/17 19:43) CKMB% (01/18/17 19:43) Metoclopramide Inj (Reglan Inj) (01/18/17 21:00) Potassium Chloride (Kcl) (01/18/17 22:00) Labs Laboratory Tests Test 01/18/17 19:43 11/6/17 19:53 Blood Urea Nitrogen 3 MG/DL Creatinine 0.88 MG/DL Random Glucose 87 MG/DL Total Protein 7.7 GM/DL Albumin 3.2 GM/DL Calcium Level 9.3 MG/DL Alkaline Phosphatase 53 U/L Aspartate Amino Transf (AST/SGOT) 20 U/L Alanine Aminotransferase (ALT/SGPT) 16 U/L Total Bilirubin 0.3 MG/DL Sodium Level 139 MEQ/L Potassium Level 3.0 MEQ/L Chloride Level 104 MEQ/L Carbon Dioxide Level 24.9 MEQ/L Anion Gap 10 MEQ/L Estimat Glomerular Filtration Rate 94 ML/MIN Total Creatine Kinase 155 U/L Creatine Kinase MB 0.7 NG/ML Troponin I LESS THAN 0.02 NG/ML Lipase 76 U/L White Blood Count 11.4 TH/MM3 Red Blood Count 4.51 MIL/MM3 Hemoglobin 12.6 GM/DL Hematocrit 37.8 % Mean Corpuscular Volume 83.9 FL Mean Corpuscular Hemoglobin 27.8 PG Mean Corpuscular Hemoglobin Concent 33.2 % Red Cell Distribution Width 13.8 % Platelet Count 315 TH/MM3 Mean Platelet Volume 7.9 FL Neutrophils (%) (Auto) 73.4 % Lymphocytes (%) (Auto) 18.9 % Monocytes (%) (Auto) 7.0 % Eosinophils (%) (Auto) 0.3 % Basophils (%) (Auto) 0.4 % Neutrophils # (Auto) 8.4 TH/MM3 Lymphocytes # (Auto) 2.2 TH/MM3 Monocytes # (Auto) 0.8 TH/MM3 Eosinophils # (Auto) 0.0 TH/MM3 Basophils # (Auto) 0.0 TH/MM3 CBC Comment DIFF FINAL Differential Comment Prothrombin Time 12.4 SEC Prothromb Time International Ratio 1.1 RATIO Activated Partial Thromboplast Time 27.5 SEC [facility] Medical Decision Making Medical Screen Exam Complete: Yes Emergency Medical Condition: Yes Differential Diagnosis Anxiety, GERD, ACS, pneumothorax, pericarditis, PE, pneumonia Narrative Course Vital signs reviewed. CBC is unremarkable. CMP is remarkable for potassium 3.0 which was replaced orally, otherwise unremarkable. Lipase is 76. Cardiac enzymes are negative. Chest x-ray shows no acute cardiopulmonary abnormality. Patient was given a dose of Zofran as well as IV Reglan, and on reassessment she is sleeping comfortably. She is tolerating Gatorade in the emergency department. She was made aware of all findings, and potassium replaced orally. She is stable for discharge home with further workup as an outpatient with a primary care physician. She has antiemetics at home. She was informed on when to return to the emergency department. She verbalizes understanding and agreement with plan. Diagnosis Primary Impression: Atypical chest pain Additional Impressions: Nausea and vomiting Qualified Codes: R11.2 - Nausea with vomiting, unspecified Hypokalemia Referrals: [facility] 2 days Additional Instructions: Follow-up with a primary care physician this week. Continue antibiotics as prescribed. Return to the emergency room for worsening symptoms or any other concerns. Disposition: DISCHARGE HOME Condition: Stable Parvez Shelby MD Jan 18, 2017 19:45
[2017-01-18 20:25] LABS: CREATINE KINASE 155 U/L (26-192)
[2017-01-18 20:36] LABS: AUTOMATED NEUTROPHIL # 8.4 TH/MM3 (1.8-7.7); BASOPHIL % 0.4 % (0.0-2.0); EOSINOPHIL % 0.3 % (0.0-4.0); HEMATOCRIT 37.8 % (35.0-46.0); HEMO FLAGS DIFF FINAL; LYMPH % 18.9 % (9.0-44.0); LYMPHOCYTE # 2.2 TH/MM3 (1.0-4.8); MEAN CELL VOLUME 83.9 FL (80.0-100.0); MEAN CORPUSCULAR HEMOGLOBIN 27.8 PG (27.0-34.0); MEAN CORPUSCULAR HGB CONC 33.2 % (32.0-36.0); NEUT % 73.4 % (16.0-70.0); PLATELET COUNT 315 TH/MM3 (150-450); RED BLOOD COUNT 4.51 MIL/MM3 (4.00-5.30); RED CELL DISTRIBUTION WIDTH 13.8 % (11.6-17.2); WHITE BLOOD COUNT 11.4 TH/MM3 (4.0-11.0)
[2017-01-18 20:37] LABS: CKMB 0.7 NG/ML (0.5-3.6)
[2017-01-18 20:55] LABS: APTT (PATIENT) 27.5 SEC (24.3-30.1); INTERNATIONAL NORMALIZED RATIO 1.1 RATIO; PROTHROMBIN TIME - PATIENT 12.4 SEC (9.8-11.6)
[2017-01-18] MEDS ORDERED: METOCLOPRAMIDE HCL 10 MG/2 ML VIAL IV PUSH ONE (21:00)
--- NOTE | 2017-01-18 21:14 | RADRPT ---
EXAM DATE/TIME: 01/18/2017 20:02 [place] COMPARISON: CHEST SINGLE AP, March 21, 2016, 12:21. INDICATIONS : Chest pain. MEDICAL HISTORY : None. SURGICAL HISTORY : None. ENCOUNTER: Initial ACUITY: 2 days PAIN SCORE: 10/10 LOCATION: middle chest. FINDINGS: Portable AP view of the chest demonstrates a normal-sized cardiac silhouette. No effusion, consolidat ion, or pneumothorax is visualized. The bones and soft tissues demonstrate no acute abnormality. EKG lines overlie the patient. CONCLUSION: No acute cardiopulmonary abnormality is identified. Harris Leone MD on January 18, 2017 at 21:11 Board Certified Radiologist. This report was verified electronically.
[2017-01-18 21:46] LABS: ALT (GPT) 16 U/L (10-53)
[2017-01-18 21:48] LABS: ALKALINE PHOSPHATASE 53 U/L (45-117); TOTAL BILIRUBIN ADULT 0.3 MG/DL (0.2-1.0)
[2017-01-18 21:51] LABS: ANION GAP 10 MEQ/L (5-15); AST (GOT) 20 U/L (15-37); BICARBONATE 24.9 MEQ/L (21.0-32.0); BLOOD UREA NITROGEN 3 MG/DL (7-18); CHLORIDE 104 MEQ/L (98-107); GLOMERULAR FILTRATION RATE 94 ML/MIN (>89); SODIUM (NA) 139 MEQ/L (136-145)
[2017-01-18] MEDS ORDERED: POTASSIUM CHLORIDE 20 MEQ CONTROLLED RELEASE TAB PO ONE (22:00)
[2017-01-18 22:55] VITALS: BP 127/79; PULSE 68; RESP 16; O2SAT 99
--- NOTE | 2017-01-19 19:08 | EKG ---
Date Performed: 01/18/2017 Time Performed: 20:05:01 PTAGE: 26 years EKG: Sinus rhythm WITH SINUS ARRHYTHMIA MARKED RIGHT AXIS DEVIATION RIGHT BUNDLE BRANCH BLOCK ABNORMAL ECG Compared to prior tracing no significant change PREVIOUS TRACING : 03/16/2016 10.32.09 DOCTOR: Jeniffer Carter Interpretating Date/Time 01/19/2017 19:07:25
== END 2017-01-18 22:58 | disposition home or self-care (01) ==
LOC: NEPD 18:14
DX: R07.89 Other chest pain (principal); R11.2 Nausea with vomiting, unspecified; E87.6 Hypokalemia
CPT/HCPCS: 71010; 80053; 82550; 82552; 83690; 84484; 84703; 85025; 85610; 85730; 93005; 96374; 96375; 99285; J1885; J2405; J2765